=== PATIENT | female | born 1955 | race Caucasian/White ===

== ENCOUNTER 2019-07-17 07:06 | Outpatient (CLI) | payer OTHER, SELFPAY ==
[2019-07-17 07:58] LABS: Alanine Aminotransferase 30 U/L (4-35); Albumin Level 4.1 g/dL (3.5-5.1); Alkaline Phosphatase 145 U/L (38-126); Aspartate Amino Transferase 32 U/L (14-36); Bilirubin,Total 0.7 mg/dL (0.2-1.3); Blood Urea Nitrogen 14 mg/dL (7-17); Carbon Dioxide 26 mmol/L (22-30); Chloride 106 mmol/L (98-107); Cholesterol 179 mg/dL (0-200); Estimated Glomerular Filt Rate > 60; Glucose 89 mg/dL (65-105); HDL Direct 43 mg/dL; Potassium 3.8 mmol/L (3.4-5.0); Sodium 143 mmol/L (137-145); Triglycerides 122 mg/dL (<150)
[2019-07-17 08:09] LABS: LDL Cholesterol Direct 107 mg/dL
[2019-07-17 08:10] LABS: Basophils Absolute Auto 0.1 K/mm3 (0.0-0.1); Basophils Percent Auto 0.8 % (0.2-1.2); Eosinophils Absolute Auto 0.4 K/mm3 (0-0.3); Eosinophils Percent Auto 5.7 % (0-4.4); Hematocrit 44.9 % (37.0-47.0); Hemoglobin 14.4 g/dL (12.0-15.0); Immature Granulocyte Absolute 0.03 K/mm3 (0.00-0.031); Immature Granulocyte Percent A 0.4 % (0-0.5); Lymphocytes Absolute Auto 2.55 K/mm3 (0.9-3.2); Lymphocytes Percent Auto 33.1 % (18.3-44.2); Mean Corpuscular HGB Conc 32.1 g/dl (32-36); Mean Corpuscular Hemoglobin 29.6 pg (26-34); Mean Corpuscular Volume 92.2 fl (80-100); Mean Platelet Volume 10.4 fl (7.4-10.4); Monocytes Absolute Auto 0.4 K/mm3 (0.1-0.6); Monocytes Percent Auto 5.3 % (2.6-8.5); Neutrophils Absolute Auto 4.2 K/mm3 (1.3-6.7); Neutrophils Percent Auto 54.7 % (45.5-73.1); Platelet Count Result 290 k/mm3 (150-375); Red Blood Count 4.87 M/mm3 (4.2-5.4); Red Cell Distribution Width 14.4 % (11.5-14.5); White Blood Count 7.7 K/mm3 (4.5-10.0)
[2019-07-17 08:16] LABS: Add Urine Microscopic? YES; Appearance Urine Cloudy (Clear); Bacteria Urine Trace /hpf; Bilirubin Urine Negative (Negative); Blood Urine Negative (Negative); Color Urine Yellow (Yellow); Glucose Urine UA Negative (Negative); Ketones Urine Trace mg/dL (Negative); Leukocyte Esterase Ur Negative LEU/UL (Negative); Mucus Urine Rare /lpf; Nitrate Urine Negative (Negative); Protein Urine Negative (Negative); RBC Urine 0-2 /hpf (0-2); Specific Grav Ur 1.015 (1.001-1.035); Squamous Epithelial Cell Urine Many /hpf (Few); Urobilinogen Urine Negative mg/dL (<2.0); WBC Urine 0-3 /hpf
[2019-07-17 08:28] LABS: Thyroid Stimulating Hormone 0.148 uIU/mL (0.465-4.680)
[2019-07-17 09:30] LABS: Free T4 Free Thyroxine 1.51 ng/mL (0.78-2.19)
== END 2019-07-17 07:07 | disposition home or self-care (01) ==
PROVIDERS: PCP Physician Assistant; Visit Provider Physician Assistant
DX: E03.9 Hypothyroidism, unspecified (principal); E78.5 Hyperlipidemia, unspecified; Z79.899 Other long term (current) drug therapy
CPT/HCPCS: 36415; 80053; 80061; 81001; 84439; 84443; 85025

== ENCOUNTER 2020-01-29 08:53 | Outpatient (CLI) | payer OTHER, SELFPAY ==
[2020-01-29 09:52] LABS: Thyroid Stimulating Hormone 0.044 uIU/mL (0.465-4.680)
== END 2020-01-29 08:54 | disposition home or self-care (01) ==
LOC: ANHLAB 08:54
PROVIDERS: PCP Physician Assistant; Visit Provider Physician Assistant
DX: E03.9 Hypothyroidism, unspecified (principal)
CPT/HCPCS: 36415; 84439; 84443

== ENCOUNTER 2020-01-29 11:55 | Emergency (ER) | payer OTHER, SELFPAY ==
--- NOTE | ~2020-01-29 | CT_ITS ---
EXAMINATION: CT brain wo con INDICATION: Dizziness COMPARISON: None TECHNIQUE: Standard unenhanced head CT. The dose-length product (DLP) was 605.33 mGy-cm. The mA was a djusted according to patient size. Iterative reconstruction technique was employed. FINDINGS: There is no intracranial hemorrhage, acute infarction, or abnormal mass lesion. The ventric les are normal. There is no abnormal mass effect or midline shift. The roblero-white matter differentiat ion is normal. The basal cisterns are patent. The orbits are normal. There is mild mucosal thickening of the paranasal sinuses. IMPRESSION: 1. No acute intracranial abnormality. Reviewed, dictated and finalized at location A.
[2020-01-29 11:46] VITALS: BP 183/93; PULSE 109; RESP 17; TEMP 36.4; O2SAT 97
--- NOTE | 2020-01-29 11:54 | ECG_ITS ---
Measurements Intervals [place] Rate: 107 P: 52 DC: 130 QRS: 26 QRSD: 82 T: 29 QT: 336 QTc: 449 Interpretive Statements SINUS TACHYCARDIA BASELINE ARTIFACT- V1, V3 ABNORMAL ECG Electronically Signed On 01-31-2020 7:12:43 CDT by Antoine Manley D.O.
[2020-01-29 12:16] LABS: Basophils Absolute Auto 0.1 K/mm3 (0.0-0.1); Basophils Percent Auto 0.7 % (0.2-1.2); Eosinophils Absolute Auto 0.2 K/mm3 (0-0.3); Eosinophils Percent Auto 2.6 % (0-4.4); Hemoglobin 14.8 g/dL (12.0-15.0); Immature Granulocyte Absolute 0.02 K/mm3 (0.00-0.031); Immature Granulocyte Percent A 0.2 % (0-0.5); Lymphocytes Absolute Auto 2.63 K/mm3 (0.9-3.2); Lymphocytes Percent Auto 31.3 % (18.3-44.2); Mean Corpuscular HGB Conc 32.9 g/dl (32-36); Mean Corpuscular Hemoglobin 30.8 pg (26-34); Mean Corpuscular Volume 93.6 fl (80-100); Mean Platelet Volume 10.3 fl (7.4-10.4); Monocytes Absolute Auto 0.4 K/mm3 (0.1-0.6); Monocytes Percent Auto 4.9 % (2.6-8.5); Neutrophils Absolute Auto 5.1 K/mm3 (1.3-6.7); Neutrophils Percent Auto 60.3 % (45.5-73.1); Platelet Count Result 279 k/mm3 (150-375); Red Blood Count 4.81 M/mm3 (4.2-5.4); White Blood Count 8.4 K/mm3 (4.5-10.0)
[2020-01-29 12:19] LABS: Add Urine Microscopic? YES; Appearance Urine Cloudy (Clear); Bacteria Urine Trace /hpf; Bilirubin Urine Negative (Negative); Blood Urine Negative (Negative); Color Urine Yellow (Yellow); Glucose Urine UA Negative (Negative); Ketones Urine Negative (Negative); Leukocyte Esterase Ur Negative LEU/UL (Negative); Mucus Urine Rare /lpf; Nitrate Urine Negative (Negative); Protein Urine Negative (Negative); RBC Urine 0-2 /hpf (0-2); Specific Grav Ur 1.019 (1.001-1.035); Squamous Epithelial Cell Urine Many /hpf (Few); Urobilinogen Urine Negative mg/dL (<2.0)
[2020-01-29 12:29] LABS: Alanine Aminotransferase 23 U/L (4-35); Albumin Level 4.3 g/dL (3.5-5.1); Alkaline Phosphatase 109 U/L (38-126); Anion Gap 8 mmol/L (8-16); Aspartate Amino Transferase 28 U/L (14-36); Bilirubin,Total 0.2 mg/dL (0.2-1.3); Blood Urea Nitrogen 17 mg/dL (7-17); Calcium 8.9 mg/dL (8.4-10.2); Carbon Dioxide 28 mmol/L (22-30); Chloride 106 mmol/L (98-107); Estimated CRCL calculation 55 ml/min; Estimated Glomerular Filt Rate 50; Glucose 136 mg/dL (65-105); Potassium 3.8 mmol/L (3.4-5.0); Sodium 142 mmol/L (137-145)
[2020-01-29] MEDS: SODIUM CHLORIDE 0.9% IV 1,000 ML 150 ML IV CONT (13:15)
[2020-01-29] MEDS: MECLIZINE HCL 25 MG TABLET PO (13:15)
[2020-01-29 14:28] VITALS: BP 142/75; PULSE 94; RESP 19; O2SAT 98
--- NOTE | 2020-01-29 15:11 | ED.DIZZY ---
HPI - Dizziness General Chief Complaint: Dizziness Stated Complaint: dizzyness Time Seen by Provider: 01/29/20 12:14 Source: patient Mode of arrival: EMS Limitations: no limitations History of Present Illness HPI Narrative: 64-year-old with a history of hypertension, anxiety disorder here with complaints of sudden onset of dizziness since this morning. Patient states that the whole room was spinning and she was off balance associated with some nausea. She denies any headache, no chest pain, shortness of breath. Denies any abdominal pain or GI bleeding. She denies any ringing sensation in the ears. MD elicited complaint: dizziness Onset (ago): hour(s) (4) Severity: moderate Description: sense of movement and room spinning Context: change in body position History of similar symptoms: No Exacerbating factors: movement/ambulation, change in body position, keeping eyes open and keeping eyes closed Relieving factors: lying down Associated neuro symptoms: gait ataxia Related Data Allergies Allergy/AdvReac Type Severity Reaction Status Date / Time Sulfa (Sulfonamide Allergy Unknown Verified 10/10/15 16:05 Antibiotics) Review of Systems Review of Systems: All systems reviewed & are unremarkable except as noted in HPI and below Constitutional: Constitutional: Reports no additional constitutional complaints Eyes: Eyes: Reports no additional eye complaints ENT: Reports system reviewed and no additional complaints, except as documented Cardiovascular: Cardiovascular: Reports no additional cardiovascular complaints Respiratory: Respiratory: Reports no additional respiratory complaints Gastrointestinal: Gastrointestinal: Reports no additional gastrointestinal complaints Musculoskeletal: Musculoskeletal: Reports no additional musculoskeletal complaints Integumentary/Breasts: Skin/Breast: Reports system reviewed and no additional complaints, except as docu Psychiatric: Psychiatric: Reports no additional psychiatric complaints Endocrine: Endocrine: Reports no additional endocrine complaints PMFSH Family History Family History Mother Hypertension Other Family history of primary malignant neoplasm of liver Family history of throat cancer Social History Social History Smoking status: Never smoker Alcohol intake: never Gender identity (if verbalized by the patient): Female Exam Narrative: Exam Narrative: GENERAL: Well-appearing, well-nourished, and in no acute distress. HEAD: Normocephalic, atraumatic. EYES: PERRLA and EOMI. ENT: Nares clear, no rhinorrhea or epistaxis. Mucous membranes moist. NECK: Supple. CHEST: Clear to auscultation. No respiratory distress. HEART: Regular rate and rhythm. No murmur heard. Normal peripheral pulses. ABDOMEN: Soft, nontender, nondistended, normal active bowel sounds. EXTREMITIES: Normal range of motion. No edema. SKIN: Warm, dry, no rash. NEURO: No focal deficits. Alert and oriented x3. PSYCH: Normal mood and affect. Const: General: no acute distress Orientation/consciousness: patient oriented x3 HENMT: Head: normal to inspection Eyes: Conjunctivae: conjunctivae normal Pupils: Equal, round and reactive pupils present Neck: Neck: normal visual inspection Chest: Chest palpation & inspection: normal inspection of the chest Resp: Effort & Inspection: normal respiratory effort Cardio: Rate: regular rate GI: Auscultation: normal bowel sounds Skin: General skin exam: normal color Neuro: General: patient oriented x3 and moves all extremities Extrem: General: normal to inspection Course Course Emergency Course: Patient was given IV Ativan, meclizine 25 mg p.o. and IV fluids. I ordered a CT of the head to rule out stroke, CBC and chemistry and EKG which were all within normal limits. Patient did feel much better was able to sit and ambulate to the
[2020-01-29 15:40] VITALS: BP 124/73; PULSE 78; RESP 14; O2SAT 98
== END 2020-01-29 16:26 | disposition home or self-care (01) ==
PROVIDERS: Emergency Medicine; Emergency Provider Family Medicine; PCP Physician Assistant
DX: H81.10 Benign paroxysmal vertigo, unspecified ear (principal); I10 Essential (primary) hypertension; R00.0 Tachycardia, unspecified
CPT/HCPCS: 36415; 70450; 80053; 81001; 85025; 93005; 96361; 96374; 99284; A9270; J2060; J7030

== ENCOUNTER 2020-07-14 07:03 | Outpatient (CLI) | payer OTHER, SELFPAY ==
[2020-07-14 08:17] LABS: Basophils Absolute Auto 0.1 K/mm3 (0.0-0.1); Basophils Percent Auto 0.6 % (0.2-1.2); Eosinophils Absolute Auto 0.4 K/mm3 (0-0.3); Eosinophils Percent Auto 4.3 % (0-4.4); Hematocrit 47.3 % (37.0-47.0); Hemoglobin 15.2 g/dL (12.0-15.0); Immature Granulocyte Absolute 0.04 K/mm3 (0.00-0.031); Immature Granulocyte Percent A 0.5 % (0-0.5); Lymphocytes Percent Auto 34.5 % (18.3-44.2); Mean Corpuscular HGB Conc 32.1 g/dl (32-36); Mean Corpuscular Hemoglobin 30.3 pg (26-34); Mean Corpuscular Volume 94.2 fl (80-100); Mean Platelet Volume 10.2 fl (7.4-10.4); Monocytes Absolute Auto 0.4 K/mm3 (0.1-0.6); Monocytes Percent Auto 5.2 % (2.6-8.5); Neutrophils Absolute Auto 4.6 K/mm3 (1.3-6.7); Neutrophils Percent Auto 54.9 % (45.5-73.1); Platelet Count Result 294 k/mm3 (150-375); Red Blood Count 5.02 M/mm3 (4.2-5.4); Red Cell Distribution Width 13.9 % (11.5-14.5); White Blood Count 8.4 K/mm3 (4.5-10.0)
[2020-07-14 08:20] LABS: Add Urine Microscopic? NO; Appearance Urine Clear (Clear); Bilirubin Urine Negative (Negative); Blood Urine Negative (Negative); Color Urine Yellow (Yellow); Glucose Urine UA Negative (Negative); Ketones Urine Negative (Negative); Leukocyte Esterase Ur Negative LEU/UL (Negative); Nitrate Urine Negative (Negative); Protein Urine Negative (Negative); Specific Grav Ur 1.026 (1.001-1.035); Urobilinogen Urine Negative mg/dL (<2.0)
[2020-07-14 08:33] LABS: Alanine Aminotransferase 22 U/L (4-35); Albumin Level 4.3 g/dL (3.5-5.1); Alkaline Phosphatase 108 U/L (38-126); Anion Gap 4 mmol/L (8-16); Aspartate Amino Transferase 26 U/L (14-36); Bilirubin,Total 0.4 mg/dL (0.2-1.3); Blood Urea Nitrogen 19 mg/dL (7-17); Calcium 9.6 mg/dL (8.4-10.2); Carbon Dioxide 31 mmol/L (22-30); Chloride 107 mmol/L (98-107); Cholesterol 202 mg/dL (0-200); Estimated Glomerular Filt Rate 41; Glucose 97 mg/dL (65-105); HDL Direct 53 mg/dL; Potassium 3.9 mmol/L (3.4-5.0); Sodium 142 mmol/L (137-145); Triglycerides 101 mg/dL (<150)
[2020-07-14 08:37] LABS: Hemoglobin A1C 5.5 % (<5.7)
[2020-07-14 08:44] LABS: LDL Cholesterol Direct 117 mg/dL
[2020-07-14 09:02] LABS: Thyroid Stimulating Hormone 0.025 uIU/mL (0.465-4.680)
[2020-07-14 09:18] LABS: Free T4 Free Thyroxine 1.43 ng/mL (0.78-2.19)
== END 2020-07-14 07:04 | disposition home or self-care (01) ==
PROVIDERS: PCP Physician Assistant; Visit Provider Physician Assistant
DX: E03.9 Hypothyroidism, unspecified (principal); E78.5 Hyperlipidemia, unspecified; Z79.899 Other long term (current) drug therapy; Z13.1 Encounter for screening for diabetes mellitus
CPT/HCPCS: 36415; 80053; 80061; 81003; 83036; 84439; 84443; 85025

== ENCOUNTER 2020-10-30 11:55 | Outpatient (CLI) | payer OTHER, SELFPAY ==
--- NOTE | ~2020-10-30 | XR_ITS ---
XR foot LT min 3V 10/30/2020 12:22 INDICATION: Left foot pain PROCEDURE: 4 views left foot COMPARISON: No prior studies for comparison. FINDINGS: Fracture, dislocation or subluxation is not identified. Lisfranc joint is intact. The soft tissues appear within normal limits. No foreign bodies are identified. IMPRESSION: 1: NO ACUTE BONE OR JOINT ABNORMALITY IDENTIFIED. Reviewed, dictated and finalized at location A.
== END 2020-10-30 11:56 | disposition home or self-care (01) ==
LOC: ANHIMG 12:03
PROVIDERS: PCP Physician Assistant; Visit Provider Physician Assistant
DX: S99.922A Unspecified injury of left foot, initial encounter (principal); X58.XXXA Exposure to other specified factors, initial encounter
CPT/HCPCS: 73630

== ENCOUNTER 2021-08-29 08:50 | Outpatient (CLI) | payer MEDICARE, SELFPAY ==
[2021-08-29 09:45] LABS: Basophils Absolute Auto 0.1 K/mm3 (0.0-0.1); Basophils Percent Auto 0.9 % (0.2-1.2); Eosinophils Absolute Auto 0.2 K/mm3 (0-0.3); Eosinophils Percent Auto 2.6 % (0-4.4); Hematocrit 48.1 % (37.0-47.0); Hemoglobin 15.4 g/dL (12.0-15.0); Immature Granulocyte Absolute 0.02 K/mm3 (0.00-0.031); Immature Granulocyte Percent A 0.2 % (0-0.5); Lymphocytes Absolute Auto 3.05 K/mm3 (0.9-3.2); Lymphocytes Percent Auto 37.3 % (18.3-44.2); Mean Corpuscular Hemoglobin 30.3 pg (26-34); Mean Corpuscular Volume 94.7 fl (80-100); Mean Platelet Volume 9.8 fl (7.4-10.4); Monocytes Absolute Auto 0.6 K/mm3 (0.1-0.6); Monocytes Percent Auto 7.1 % (2.6-8.5); Neutrophils Absolute Auto 4.3 K/mm3 (1.3-6.7); Neutrophils Percent Auto 51.9 % (45.5-73.1); Platelet Count Result 310 k/mm3 (150-375); Red Blood Count 5.08 M/mm3 (4.2-5.4); Red Cell Distribution Width 14.3 % (11.5-14.5); White Blood Count 8.2 K/mm3 (4.5-10.0)
[2021-08-29 10:01] LABS: Alanine Aminotransferase 25 U/L (4-35); Albumin Level 4.3 g/dL (3.5-5.1); Alkaline Phosphatase 134 U/L (38-126); Anion Gap 6 mmol/L (8-16); Aspartate Amino Transferase 29 U/L (14-36); Bilirubin,Total 0.2 mg/dL (0.2-1.3); Blood Urea Nitrogen 19 mg/dL (7-17); Calcium 9.3 mg/dL (8.4-10.2); Carbon Dioxide 28 mmol/L (22-30); Chloride 107 mmol/L (98-107); Estimated Glomerular Filt Rate 50; Glucose 115 mg/dL (65-110); Potassium 4.2 mmol/L (3.4-5.0); Sodium 141 mmol/L (137-145)
[2021-08-29 10:15] LABS: Free T4 Free Thyroxine 1.37 ng/mL (0.78-2.19)
[2021-08-29 10:29] LABS: Thyroid Stimulating Hormone 0.031 uIU/mL (0.465-4.680)
== END 2021-08-29 08:51 | disposition home or self-care (01) ==
LOC: ANHLAB 08:57
PROVIDERS: PCP Physician Assistant; Visit Provider Physician Assistant
DX: E03.9 Hypothyroidism, unspecified (principal); Z79.899 Other long term (current) drug therapy
CPT/HCPCS: 36415; 80048; 80076; 84439; 84443; 85025

== ENCOUNTER 2022-02-21 17:28 | Emergency (ER) | payer MEDICARE, SELFPAY ==
[2022-02-21] VITALS (10 sets, daily range): BP systolic 131–155; BP diastolic 72–93; PULSE 95–124; RESP 18–26; TEMP 36.6; O2SAT 91–98
--- NOTE | ~2022-02-21 | XR_ITS ---
EXAMINATION: XR chest 2V DATE: 02/21/2022 20:02 INDICATION: Leukocytosis. TECHNIQUE: Frontal and lateral views of the chest were obtained. COMPARISON: Chest 2 views 12/14/2009 FINDINGS: There is a large hiatal hernia. There is mild atelectasis in right lower lung zone. No pleu ral effusion or pneumothorax. The heart size is normal. Surgical clips in the right upper quadrant ar e likely from cholecystectomy. IMPRESSION: 1. Large hiatal hernia. 2. Mild atelectasis in right lower lung zone. Reviewed, dictated and finalized at location A.
--- NOTE | ~2022-02-21 | CT_ITS ---
EXAMINATION: CT abdomen pelvis w con DATE: 02/21/2022 21:29 INDICATION: Lower pelvic pain. TECHNIQUE: Computed tomography (CT) of the abdomen and pelvis was performed with 100 mL Omnipaque 350 intravenous contrast. Automated exposure control and iterative reconstruction technique were employe d. The dose-length product was 907.98 mGy-cm. COMPARISON: None. FINDINGS: The visualized portions of the lung bases demonstrate mild atelectasis. No pleural effusion . The heart size is normal. No pericardial effusion. There is a large sliding hiatal hernia. The tail of the pancreas is in the hiatal hernia. There is a 7 mm cyst in the liver. There are changes of cho lecystectomy. The spleen, adrenal glands, and right kidney are normal. There is a 10 mm cyst in left kidney. There are scattered diverticula in the colon. There is fat stranding around a sigmoid diverti culum, consistent with diverticulitis. There is trace pelvic ascites. There are no dilated loops of b owel. The appendix is normal. There are no pathologically enlarged lymph nodes. There is moderate tho racic spondylosis and mild lumbar spondylosis. IMPRESSION: 1. Acute sigmoid diverticulitis. No perforation or abscess. 2. Large sliding hiatal hernia. Reviewed, dictated and finalized at location A.
--- NOTE | 2022-02-21 18:33 | ECG_ITS ---
Measurements Intervals [place] Rate: 125 P: 42 TN: 155 QRS: 33 QRSD: 79 T: 33 QT: 336 QTc: 486 Interpretive Statements SINUS TACHYCARDIA BORDERLINE ST-T WAVE ABNORMALITY- ANT/INF LEADS ABNORMAL ECG COMPARED TO ECG 01/29/2020 11:54:29 HEART RATE HAS INCREASED Electronically Signed On 02-21-2022 21:41:32 CDT by Antoine Manley D.O.
--- NOTE | 2022-02-21 18:36 | ED.GENADULT ---
HPI - General Adult General Chief complaint: Weakness Stated complaint: WEAK, DEHYDRATED, HOME TEST NEGATIVE Time Seen by Provider: 02/21/22 18:23 History of Present Illness HPI narrative: 67-year-old female with history of anxiety, hypothyroidism here for evaluation of weakness for the past 8 hours. Patient states that she feels weak all over without obvious trigger. Patient took a home COVID test that was negative. She states that she is not constipated for the past 5 days, but this is her baseline. She does note some intermittent lower abdominal discomfort and had an episode of nausea and vomiting about 5 days ago, which she presumed was gastroenteritis after eating [employer]. This is since resolved. No fevers, chills, chest pain, shortness of breath, dysuria, urgency or frequency. Patient tells me her heart rate is chronically elevated at the hospital due to anxiety. Related Data Home Medications Medication Instructions Recorded Confirmed alprazolam 0.5 mg tablet 0.5 mg PO QID 08/23/21 levothyroxine 88 mcg tablet 88 mcg PO DAILY 08/23/21 (Euthyrox) lisinopril 30 mg tablet 30 mg PO DAILY 08/23/21 Allergies Allergy/AdvReac Type Severity Reaction Status Date / Time sulfamethoxazole Allergy Swelling Verified 08/23/21 09:23 [From Bactrim] of Lip/Tongue/Throat trimethoprim [From Bactrim] Allergy Swelling Verified 08/23/21 09:23 of Lip/Tongue/Throat Review of Systems Review of Systems: Gen: Denies fevers or chills Eyes: Denies eye pain or visual change ENT: Denies congestion Respiratory: Denies shortness of breath or cough CV: Denies chest pain or palpitations GI: Reports constipation and lower abdominal pain. Denies diarrhea : denies burning, urgency, frequency or hematuria Musculoskeletal: Denies back pain or muscle pain Neuro: Reports weakness. Denies numbness, tingling, focal weakness Skin: Denies rash Except as documented, all other systems reviewed and negative [facility] Surgical History Surgical History History of cholecystectomy History of hysterectomy Family History Family History Mother Hypertension Other Family history of primary malignant neoplasm of liver Family history of throat cancer Social History Social History (Updated 08/23/21 @ 09:25 by Elizabet Reddy RN) Smoking status: Never smoker Alcohol intake: never Substance use: never Substance use type: does not use Gender identity (if verbalized by the patient): Female Course Vital Signs Vital signs: Vital Signs Temperature 97.8 F 02/21/22 17:41 Pulse Rate 100 02/21/22 17:41 Respiratory Rate 20 02/21/22 17:41 Blood Pressure 146/89 H 02/21/22 17:41 Pulse Oximetry 95 02/21/22 17:41 Oxygen Delivery Room Air 02/21/22 17:41 Temperature 97.8 F 02/21/22 17:41 Pulse Rate 95 02/21/22 23:38 Respiratory Rate 18 02/21/22 23:38 Blood Pressure 131/93 H 02/21/22 23:38 Pulse Oximetry 97 02/21/22 23:38 Oxygen Delivery Room Air 02/21/22 17:41 Medical Decision Making MDM Narrative Medical decision making narrative: 67 year old female here for evaluation of generalized weakness and lower abdominal cramping for the past day. Here she is tachycardic but non-toxic appearing; improved after fluids and home xanax rx. Workup significant for a leukocytosis to 16.3, normal lactic, Cr/BUN at baseline, no electrolyte disturbance, TSH 0.160 followed by a free t4 of 12 suggesting slightly hyperthyroid (on levothyroxine), does not explain patient's weakness. CXR and urine clear. CT abd pelvis with evidence of diverticulitis; which likely explains patient's symptoms. Shared decision making was used; patient elected for outpatient management with augmentin and clear liquid diet and will monitor symptoms for improvement. She was given return precautions and she voic
[2022-02-21 19:06] LABS: Basophils Absolute Auto 0.1 K/mm3 (0.0-0.1); Basophils Percent Auto 0.4 % (0.2-1.2); Eosinophils Percent Auto 0.2 % (0-4.4); Hematocrit 44.1 % (37.0-47.0); Hemoglobin 14.8 g/dL (12.0-15.0); Immature Granulocyte Absolute 0.06 K/mm3 (0.00-0.031); Immature Granulocyte Percent A 0.4 % (0-0.5); Lymphocytes Absolute Auto 2.05 K/mm3 (0.9-3.2); Lymphocytes Percent Auto 12.6 % (18.3-44.2); Mean Corpuscular HGB Conc 33.6 g/dl (32-36); Mean Corpuscular Hemoglobin 30.3 pg (26-34); Mean Corpuscular Volume 90.4 fl (80-100); Mean Platelet Volume 9.7 fl (7.4-10.4); Monocytes Absolute Auto 0.9 K/mm3 (0.1-0.6); Monocytes Percent Auto 5.3 % (2.6-8.5); Neutrophils Absolute Auto 13.2 K/mm3 (1.3-6.7); Neutrophils Percent Auto 81.1 % (45.5-73.1); Platelet Count Result 300 k/mm3 (150-375); Red Blood Count 4.88 M/mm3 (4.2-5.4); Red Cell Distribution Width 13.7 % (11.5-14.5); White Blood Count 16.3 K/mm3 (4.5-10.0)
[2022-02-21 19:16] LABS: Alanine Aminotransferase 25 U/L (6-35); Albumin Level 4.5 g/dL (3.5-5.1); Alkaline Phosphatase 139 U/L (38-126); Anion Gap 15 mmol/L (8-16); Aspartate Amino Transferase 26 U/L (14-36); Bilirubin,Total 0.7 mg/dL (0.2-1.3); Blood Urea Nitrogen 15 mg/dL (7-17); Calcium 8.5 mg/dL (8.4-10.2); Carbon Dioxide 21 mmol/L (22-30); Chloride 104 mmol/L (98-107); Estimated CRCL calculation 55 ml/min; Estimated Glomerular Filt Rate 50; Glucose 148 mg/dL (65-110); Potassium 3.5 mmol/L (3.4-5.0); Sodium 140 mmol/L (137-145)
[2022-02-21 19:27] LABS: Troponin I < 0.012 ng/mL (0.000-0.034)
[2022-02-21 19:45] LABS: Appearance Urine Clear (Clear); Bilirubin Urine Negative (Negative); Blood Urine Negative (Negative); Color Urine Yellow (Yellow); Glucose Urine UA Negative (Negative); Ketones Urine Negative (Negative); Leukocyte Esterase Ur Negative LEU/UL (Negative); Nitrate Urine Negative (Negative); Protein Urine Negative (Negative); Specific Grav Ur <= 1.005 (1.001-1.035); Urobilinogen Urine 0.2 mg/dL (<2.0); pH Urine 5.5 (5.0-9.0)
[2022-02-21 19:48] LABS: Add Urine Microscopic? NO
[2022-02-21] MEDS: SODIUM CHLORIDE 0.9% IV 1,000 ML 999 ML IV CONT (21:00)
[2022-02-21 21:19] LABS: Lactic Acid Reflex 1.1 mmol/L (0.7-2.0)
[2022-02-21] MEDS: AMOXICILLIN/CLAVULANATE K 875-125 MG TAB 1 TABLET PO (22:40)
[2022-02-21] MEDS: ALPRAZolam (*CRX) 0.5 MG TABLET PO (22:40)
== END 2022-02-21 23:40 | disposition home or self-care (01) ==
PROVIDERS: Physician Assistant; Emergency Provider Emergency Medicine; PCP Physician Assistant
DX: K57.32 Diverticulitis of large intestine without perforation or abscess without bleeding (principal); E03.9 Hypothyroidism, unspecified; F41.9 Anxiety disorder, unspecified; Z90.710 Acquired absence of both cervix and uterus; K44.9 Diaphragmatic hernia without obstruction or gangrene; R00.0 Tachycardia, unspecified; R94.31 Abnormal electrocardiogram [ECG] [EKG]
CPT/HCPCS: 36415; 71046; 74177; 80053; 81003; 83605; 84436; 84443; 84484; 85025; 93005; 96360; 96361; 99284; A9270; J7030; Q9967

== ENCOUNTER 2022-07-15 09:22 | Emergency (ER) | payer MEDICARE, SELFPAY ==
[2022-07-15] VITALS (8 sets, daily range): BP systolic 146–169; BP diastolic 74–106; PULSE 70–127; RESP 14–27; TEMP 36.5–36.7; O2SAT 95–99
--- NOTE | ~2022-07-15 | XR_ITS ---
EXAMINATION: XR chest 1V portable DATE: 07/15/2022 15:15 INDICATION: Cold symptoms. TECHNIQUE: A single frontal view of the chest was obtained. COMPARISON: Chest 2 views 02/21/2022, CT abdomen and pelvis 02/21/2022 FINDINGS: There is a large hiatal hernia. No pneumonia, pleural effusion, or pneumothorax. The heart size is normal. Surgical clips in the right upper quadrant are likely from cholecystectomy. IMPRESSION: 1. Large hiatal hernia. Reviewed, dictated and finalized at location A. 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 Large hiatal hernia.
--- NOTE | ~2022-07-15 | CT_ITS ---
EXAMINATION: CT abdomen pelvis w con DATE: 07/15/2022 17:29 INDICATION: Colitis TECHNIQUE: Computed tomography (CT) of the abdomen and pelvis was performed with 100 mL Omnipaque-350 intravenous contrast. Automated exposure control and iterative reconstruction technique were employe d. The dose-length product was 768.53 mGy-cm. COMPARISON: 02/21/2022 FINDINGS: Large hiatal hernia containing nearly the entire stomach and large portion of the pancreatic body and tail which extends primarily into the posterior right hemithorax. Associated compressive atelectasis in the right lower lobe. Heart size is normal. No pericardial or pleural effusion. 7 mm hepatic cyst . Cholecystectomy clips the gallbladder fossa. 5 mm low-attenuation lesion at the anteroinferior sple en most likely small hemangioma. Bilateral adrenal glands and right kidney are normal. 1 cm left lourdes l cyst. Several diverticula along the sigmoid colon. There is wall thickening along a short segment o f the mid sigmoid colon and mild surrounding from trace stranding which given the short length of the involved segment would favor diverticulitis over colitis. Small bowel and appendix are normal. Bladd er is normal. The uterus is not identified and has likely been surgically resected. 5 mm coarse calci fication in the left ovary. Right ovary is normal. Small amount of nonloculated likely reactive or ph ysiologic free fluid in the pelvis. No abscess or free intraperitoneal gas. Mild lumbar and moderate lower thoracic spondylosis with chronic mild anterior wedging at T10 and T11. IMPRESSION: 1. Recurrent likely acute sigmoid diverticulitis. 2. Large sliding-type hiatal hernia. Reviewed, dictated and finalized at location A. 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
[2022-07-15 10:38] LABS: Influenza A QL RT-PCR Negative (Negative); Influenza B QL RT-PCR Negative (Negative); RSV RNA, RT-PCR Negative (Negative); SARS-CoV-2 RNA PCR Negative
--- NOTE | 2022-07-15 14:23 | ED.GENADULT ---
HPI - General Adult General Chief complaint: Unspecified Stated complaint: Chills, aching, headache for 5 days Time Seen by Provider: 07/15/22 14:21 Source: patient Mode of arrival: ambulatory Limitations: no limitations History of Present Illness HPI narrative: 67 years old white female came to the emergency room by private car with cold feeling, chills, body aches, coughing started 5 days ago, yesterday was doing great today started having the symptoms back up again. Patient reports that her coughing resolved 2 days ago currently she is not coughing or having any shortness of breath. She denies any fever. She reports slight abdominal pain earlier today which resolved in few minutes, currently no abdominal pain or fever or nausea or vomiting Related Data Home Medications Medication Instructions Recorded Confirmed alprazolam 0.5 mg tablet 0.5 mg PO QID 08/23/21 levothyroxine 88 mcg tablet 88 mcg PO DAILY 08/23/21 (Euthyrox) lisinopril 30 mg tablet 30 mg PO DAILY 08/23/21 Allergies Allergy/AdvReac Type Severity Reaction Status Date / Time sulfamethoxazole Allergy Swelling Verified 08/23/21 09:23 [From Bactrim] of Lip/Tongue/Throat trimethoprim [From Bactrim] Allergy Swelling Verified 08/23/21 09:23 of Lip/Tongue/Throat Review of Systems Review of Systems: All systems reviewed & are unremarkable except as noted in HPI and below PMFSH Surgical History Surgical History History of cholecystectomy History of hysterectomy Family History Family History Mother Hypertension Other Family history of primary malignant neoplasm of liver Family history of throat cancer Social History Social History Smoking status: Never smoker Alcohol intake: never Substance use: never Substance use type: does not use Gender identity (if verbalized by the patient): Female Exam Narrative: General appearance: Well-developed, well-nourished Skin: Normal color Head: Normocephalic, nontraumatic Eyes: Clear conjunctiva ENT: Oropharynx normal, ears normal, nose normal Neck: Supple, nontender Chest and respiratory: Airway patent, no respiratory distress, no accessory muscle use Heart: Regular rate/rhythm Abdomen: Soft, nontender, no organomegaly, quiet bowel sounds Vascular: Normal peripheral pulses, normal capillary refill. 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 Noticed some slight lower abdominal pain today which lasted for few minutes, currently no abdominal pain, physical examination showed no significant abdominal abnormalities. Work-up showed elevated white count with left shift, patient told me that she had similar symptoms without abdominal pain last year and had diverticulitis at that time. CT abdomen and pelvis with IV contrast ordered. Which showed recurren
[2022-07-15 14:55] LABS: Appearance Urine Clear (Clear); Bilirubin Urine Negative (Negative); Blood Urine Negative (Negative); Color Urine Yellow (Yellow); Glucose Urine UA Negative (Negative); Ketones Urine Negative (Negative); Leukocyte Esterase Ur Negative LEU/UL (Negative); Nitrate Urine Negative (Negative); Protein Urine Negative (Negative); Urobilinogen Urine 0.2 mg/dL (<2.0); pH Urine 6.5 (5.0-9.0)
[2022-07-15 14:56] LABS: Add Urine Microscopic? NO
[2022-07-15 15:08] LABS: Basophils Absolute Auto 0.1 K/mm3 (0.0-0.1); Basophils Percent Auto 0.4 % (0.2-1.2); Eosinophils Percent Auto 0.2 % (0-4.4); Hematocrit 49.1 % (37.0-47.0); Immature Granulocyte Absolute 0.07 K/mm3 (0.00-0.031); Immature Granulocyte Percent A 0.5 % (0-0.5); Lymphocytes Absolute Auto 1.71 K/mm3 (0.9-3.2); Mean Corpuscular HGB Conc 32.6 g/dl (32-36); Mean Corpuscular Hemoglobin 30.1 pg (26-34); Mean Corpuscular Volume 92.5 fl (80-100); Mean Platelet Volume 9.8 fl (7.4-10.4); Monocytes Absolute Auto 0.5 K/mm3 (0.1-0.6); Monocytes Percent Auto 3.9 % (2.6-8.5); Neutrophils Absolute Auto 10.8 K/mm3 (1.3-6.7); Platelet Count Result 307 k/mm3 (150-375); Red Blood Count 5.31 M/mm3 (4.2-5.4); Red Cell Distribution Width 14.2 % (11.5-14.5); White Blood Count 13.2 K/mm3 (4.5-10.0)
[2022-07-15] MEDS: SODIUM CHLORIDE 0.9% IV 1,000 ML 999 ML IV CONT (15:11)
[2022-07-15 15:22] LABS: Alanine Aminotransferase 38 U/L (6-35); Albumin Level 4.7 g/dL (3.5-5.1); Alkaline Phosphatase 186 U/L (38-126); Anion Gap 7 mmol/L (8-16); Aspartate Amino Transferase 35 U/L (14-36); Bilirubin,Total 0.7 mg/dL (0.2-1.3); Blood Urea Nitrogen 12 mg/dL (7-17); Calcium 9.7 mg/dL (8.4-10.2); Carbon Dioxide 31 mmol/L (22-30); Chloride 104 mmol/L (98-107); Estimated CRCL calculation 45 ml/min; Estimated Glomerular Filt Rate 50; Glucose 111 mg/dL (65-110); Potassium 4.3 mmol/L (3.4-5.0); Sodium 142 mmol/L (137-145)
--- NOTE | 2022-07-15 18:56 | PC.NURSE ---
Patient states she is very anxious because she did not take her home medication for anxiety. SONJA Owens notified.
[2022-07-15] MEDS: LORazepam (*CRX) 1 MG TABLET PO (18:59)
[2022-07-15] MEDS: metroNIDAZOLE 250 MG TABLET 500 MG PO (20:22)
[2022-07-15] MEDS: levoFLOXacin 750 MG TABLET PO (20:23)
== END 2022-07-15 20:20 | disposition home or self-care (01) ==
PROVIDERS: General Practice; Emergency Provider Emergency Medicine; PCP Physician Assistant
DX: K57.32 Diverticulitis of large intestine without perforation or abscess without bleeding (principal); Z90.710 Acquired absence of both cervix and uterus; K44.9 Diaphragmatic hernia without obstruction or gangrene; Z20.822 Contact with and (suspected) exposure to COVID-19
CPT/HCPCS: 36415; 71045; 74177; 80053; 81003; 85025; 87637; 96360; 99284; A9270; J7030; Q9967

== ENCOUNTER 2022-07-31 06:41 | Outpatient (CLI) | payer MEDICARE, SELFPAY ==
[2022-07-31 07:29] LABS: Basophils Absolute Auto 0.1 K/mm3 (0.0-0.1); Basophils Percent Auto 0.8 % (0.2-1.2); Eosinophils Absolute Auto 0.2 K/mm3 (0-0.3); Eosinophils Percent Auto 2.7 % (0-4.4); Hematocrit 47.6 % (37.0-47.0); Hemoglobin 15.4 g/dL (12.0-15.0); Immature Granulocyte Absolute 0.03 K/mm3 (0.00-0.031); Immature Granulocyte Percent A 0.4 % (0-0.5); Lymphocytes Absolute Auto 2.71 K/mm3 (0.9-3.2); Lymphocytes Percent Auto 32.3 % (18.3-44.2); Mean Corpuscular HGB Conc 32.4 g/dl (32-36); Mean Corpuscular Hemoglobin 30.2 pg (26-34); Mean Corpuscular Volume 93.3 fl (80-100); Mean Platelet Volume 9.7 fl (7.4-10.4); Monocytes Absolute Auto 0.5 K/mm3 (0.1-0.6); Monocytes Percent Auto 5.4 % (2.6-8.5); Neutrophils Absolute Auto 4.9 K/mm3 (1.3-6.7); Neutrophils Percent Auto 58.4 % (45.5-73.1); Platelet Count Result 303 k/mm3 (150-375); White Blood Count 8.4 K/mm3 (4.5-10.0)
[2022-07-31 07:41] LABS: Alanine Aminotransferase 25 U/L (6-35); Albumin Level 4.7 g/dL (3.5-5.1); Alkaline Phosphatase 113 U/L (38-126); Anion Gap 6 mmol/L (8-16); Aspartate Amino Transferase 27 U/L (14-36); Bilirubin,Total 0.5 mg/dL (0.2-1.3); Blood Urea Nitrogen 15 mg/dL (7-17); Calcium 9.5 mg/dL (8.4-10.2); Carbon Dioxide 30 mmol/L (22-30); Chloride 103 mmol/L (98-107); Cholesterol 249 mg/dL (0-200); Estimated Glomerular Filt Rate 50; Glucose 114 mg/dL (65-110); HDL Direct 56 mg/dL; Potassium 4.2 mmol/L (3.4-5.0); Sodium 139 mmol/L (137-145); Triglycerides 152 mg/dL (<150)
[2022-07-31 07:52] LABS: LDL Cholesterol Direct 126 mg/dL
[2022-07-31 08:10] LABS: Thyroid Stimulating Hormone 0.124 uIU/mL (0.465-4.680)
[2022-07-31 08:58] LABS: Free T4 Free Thyroxine 1.69 ng/mL (0.78-2.19)
== END 2022-07-31 06:42 | disposition home or self-care (01) ==
PROVIDERS: PCP Physician Assistant; Visit Provider Physician Assistant
DX: E78.5 Hyperlipidemia, unspecified (principal); E03.9 Hypothyroidism, unspecified; Z79.899 Other long term (current) drug therapy
CPT/HCPCS: 36415; 80048; 80061; 80076; 84439; 84443; 85025

== ENCOUNTER 2022-10-19 19:24 | Emergency (ER) | payer MEDICARE, SELFPAY ==
--- NOTE | 2022-10-19 19:25 | ED.URI ---
HPI - URI/Sore Throat General Chief Complaint: Upper Respiratory Infection Stated Complaint: SORE THROAT Time Seen by Provider: 10/19/22 19:25 Source: patient Mode of arrival: ambulatory Limitations: no limitations History of Present Illness HPI Narrative: Patricia is a 67-year-old female patient presenting to the clinic today with complaints of sore throat that started this morning. Reports she is also having a dry cough that has almost caused her to vomit. Did have home COVID test and it was negative. Denies any fever but has had some chills. MD elicited complaint: sore throat and nasal congestion Related Data Home Medications Medication Instructions Recorded Confirmed alprazolam 0.5 mg tablet 0.5 mg PO QID 08/23/21 10/19/22 levothyroxine 88 mcg tablet 88 mcg PO DAILY 08/23/21 10/19/22 (Euthyrox) lisinopril 30 mg tablet 30 mg PO DAILY 08/23/21 10/19/22 Allergies Allergy/AdvReac Type Severity Reaction Status Date / Time sulfamethoxazole Allergy Swelling Verified 10/19/22 19:35 [From Bactrim] of Lip/Tongue/Throat trimethoprim [From Bactrim] Allergy Swelling Verified 10/19/22 19:35 of Lip/Tongue/Throat Review of Systems Review of Systems: Pertinent positives per HPI. Patient denies any fever, chills, rash, headache, visual changes, dizziness, cough, shortness of breath, chest pain, palpitations, nausea, vomiting, diarrhea, constipation, abdominal pain, or any urinary issues. [facility] Surgical History Surgical History History of cholecystectomy History of hysterectomy Family History Family History Mother Hypertension Other Family history of primary malignant neoplasm of liver Family history of throat cancer Social History Social History Smoking status: Never smoker Alcohol intake: never Substance use: never Substance use type: does not use Gender identity (if verbalized by the patient): Female Comments At the time of my signature, I reviewed and agree with the nursing past medical, surgical, social, and family history. There is no relevant family history pertinent to the patient complaint. Exam Narrative: General: Well-developed, well nourished, in no apparent distress Head: Normocephalic, atraumatic Eyes: Pupils equally round and reactive to light bilaterally, EOM intact, sclera and conjunctive clear, no discharge, lids normal Ears: TMs intact and clear, ear canals clear, no drainage, grossly hearing normal. Nose: Nares patent, no discharge, no inflammation, no sinus tenderness. Mouth: Oral pharynx without lesions or masses, good dentition, MMM. Neck: Supple, trachea midline, no enlargement of anterior or posterior cervical nodes, no thyroid masses or goiter palpable. Cardio: Regular rate and rhythm, s1 and s2 normal, no murmur appreciated. Resp: Clear to auscultation bilaterally, no rhonchi, rales, wheezing or rubs Course Course Emergency Course: Portions of this record may have been created with voice recognition software. Level of Care: Express Care Visit Vital Signs Vital signs: Vital signs reviewed MDM - URI/Sore Throat MDM Narrative Medical decision making narrative: At the time of visit patient is resting comfortably on the exam table. Strep screen was obtained and was negative in the clinic today. I suspect patient has viral pharyngitis. Supportive measures were discussed with the patient she voiced understanding of discharge instructions and agrees to treatment plan. Differential Diagnosis Differential diagnosis: Likely upper respiratory infection, sinusitis, viral infection, bronchitis, influenza, pharyngitis and other (COVID) Discharge Plan Discharge Clinical Impression: Pharyngitis, Viral infection Patient Disposition: Home, Self-Care Con
[2022-10-19 19:30] VITALS: BP 169/90; PULSE 95; RESP 16; TEMP 36.9; O2SAT 97
== END 2022-10-19 19:56 | disposition home or self-care (01) ==
PROVIDERS: Emergency Provider Nurse Practitioner Family; PCP Physician Assistant
DX: J02.9 Acute pharyngitis, unspecified (principal); B34.9 Viral infection, unspecified
CPT/HCPCS: 87081; 87804; 87880; 99213; G0463

== ENCOUNTER 2023-01-28 11:20 | Outpatient (CLI) | payer MEDICARE, SELFPAY ==
--- NOTE | ~2023-01-28 | XR_ITS ---
EXAMINATION: XR knee LT min 4V DATE: 01/28/2023 11:54 INDICATION: Disorder of bone. Anterior proximal tibial nodule. TECHNIQUE: 4 views of left knee including standing views were obtained. COMPARISON: None. FINDINGS: Bone alignment is normal. No fracture. Joint spaces are normal. No knee joint effusion. The re is mild superficial infrapatellar soft tissue swelling. IMPRESSION: 1. Mild superficial infrapatellar soft tissue swelling. Reviewed, dictated and finalized at location A.
== END 2023-01-28 11:21 | disposition home or self-care (01) ==
LOC: ANHIMG 11:24
PROVIDERS: PCP Physician Assistant; Visit Provider Physician Assistant
DX: M89.9 Disorder of bone, unspecified (principal); M79.89 Other specified soft tissue disorders
CPT/HCPCS: 73564

== ENCOUNTER 2023-02-25 11:25 | Emergency (ER) | payer MEDICARE, SELFPAY ==
--- NOTE | ~2023-02-25 | CT_ITS ---
EXAMINATION: CT abdomen pelvis w con DATE: 02/25/2023 15:54 INDICATION: Lower abdominal pain. Pelvic pressure. Nausea. Dysuria. TECHNIQUE: Computed tomography (CT) of the abdomen and pelvis was performed with 100 CC Omnipaque 350 intravenous contrast. Automated exposure control and iterative reconstruction technique were employe d. Exam dose: 741.32 mGy-cm total exam DLP. COMPARISON: July 15, 2022 CT abdomen pelvis the cecum is in the FINDINGS: There is chronic discoid atelectasis and/or scarring at the lung bases. There is mild cardiomegaly. No pericardial or pleural effusion. There is a 6.5 mm hypoattenuating lesion of the medial segment of the left hepatic lobe, likely a cys t or hemangioma. Status post cholecystectomy. No bile duct dilatation. There is a large hiatal hernia containing stomach, in addition to part of pancreas and duodenum. Normal splenic size. No pancreatic mass lesion or calcification or ductal dilatation. Normal morphology of the adrenal glands. 8 mm lower pole left renal cyst. No renal mass lesion or urinary tract calculus or hydronephrosis. Diverticulosis of the colon; no CT evidence of diverticulitis. No bowel obstruction or intraperitonea l free air is detected. Normal caliber of the abdominal aorta. No intraperitoneal or retroperitoneal or pelvic mass lesion or adenopathy or ascites. No suspicious osteolytic or osteoblastic lesions are noted. IMPRESSION: Large hiatal hernia containing stomach and parts of the pancreas and duodenum 6.5 mm hypoattenuating medial segment left hepatic lobe lesion, likely a cyst or hemangioma Status post cholecystectomy 8 mm left renal cyst Diverticulosis of the colon Reviewed, dictated and finalized at [facility] Reviewed, dictated and finalized at [facility]. IMPRESSION: Large hiatal hernia containing stomach and parts of the pancreas a nd duodenum 6.5 mm hypoattenuating medial segment left hepatic lobe lesion, likely a cyst o r hemangioma Status post cholecystectomy 8 mm left renal cyst Diverticulosis of the colon
[2023-02-25 12:35] VITALS: BP 165/86; PULSE 83; RESP 18; TEMP 36.8; O2SAT 99
[2023-02-25 13:08] LABS: Appearance Urine Clear (Clear); Bilirubin Urine Negative (Negative); Blood Urine Negative (Negative); Color Urine Yellow (Yellow); Glucose Urine UA Negative (Negative); Ketones Urine Negative (Negative); Leukocyte Esterase Ur Negative LEU/UL (Negative); Nitrate Urine Negative (Negative); Protein Urine Negative (Negative); Specific Grav Ur 1.007 (1.001-1.035); Urobilinogen Urine 0.2 mg/dL (<2.0)
[2023-02-25 13:22] LABS: Add Urine Microscopic? NO
[2023-02-25 15:10] VITALS: PULSE 82; RESP 20; O2SAT 99
--- NOTE | 2023-02-25 15:18 | ED.GENADULT ---
HPI - General Adult General Chief complaint: Urogenital-Female Stated complaint: UTI Time Seen by Provider: 02/25/23 14:47 Source: patient, RN notes reviewed and old records reviewed Mode of arrival: ambulatory Limitations: no limitations History of Present Illness HPI narrative: This is a 68 year old female with history of diverticulitis who presents for evaluation of lower pelvis discomfort. She reports having this pain for 2 weeks. She thought she had a UTI because she used over the counter testing strips. She took antibiotics but she has continued to have pelvis this comfort. She reports nausea and chills. She thinks she may have diverticulitis. She denies constipation or diarrhea. She reports normal bowel movement today. She denies chest pain or shortness of breath. Related Data Home Medications Medication Instructions Recorded Confirmed alprazolam 0.5 mg tablet 0.5 mg PO QID 08/23/21 10/19/22 levothyroxine 88 mcg tablet 88 mcg PO DAILY 08/23/21 10/19/22 (Euthyrox) lisinopril 30 mg tablet 30 mg PO DAILY 08/23/21 10/19/22 Allergies Allergy/AdvReac Type Severity Reaction Status Date / Time sulfamethoxazole Allergy Swelling Verified 10/19/22 19:35 [From Bactrim] of Lip/Tongue/Throat trimethoprim [From Bactrim] Allergy Swelling Verified 10/19/22 19:35 of Lip/Tongue/Throat Review of Systems Constitutional: Constitutional: Reports chills and Denies weakness Cardiovascular: Cardiovascular: Denies syncope, Denies rapid heart rate, Denies irregular heart rhythm, Denies leg edema and Denies dyspnea Respiratory: Respiratory: Denies chest congestion, Denies hemoptysis, Denies excessive phlegm production and Denies dyspnea Gastrointestinal: Gastrointestinal: Reports abdominal pain, Denies hematochezia, Denies diarrhea, Reports nausea and Denies vomiting Genitourinary: Genitourinary: Denies hematuria and Reports dysuria Musculoskeletal: Musculoskeletal: Denies joint swelling, Denies loss of height and Denies muscle weakness Neurologic: Denies syncope, Denies focal weakness and Denies weakness PMFSH Past Medical History Medical History (Updated 02/25/23 @ 16:55 by Ivelisse Garsia MD) Anxiety HTN (hypertension) Surgical History Surgical History History of cholecystectomy History of hysterectomy Family History Family History Mother Hypertension Other Family history of primary malignant neoplasm of liver Family history of throat cancer Social History Social History Smoking status: Never smoker Alcohol intake: never Substance use: never Substance use type: does not use Gender identity (if verbalized by the patient): Female Exam Const: General: healthy appearing, no acute distress and alert Nutritional Appearance: well nourished Orientation/consciousness: patient oriented x3 Limitations: no limitations HENMT: Head: normal to inspection Eyes: EOM: EOMs intact bilaterally Resp: Effort & Inspection: normal respiratory effort Auscultation: clear to auscultation bilaterally Cardio: Rate: regular rate Rhythm: regular rhythm Heart sounds: no murmurs GI: GI Palp: Yes Soft to palpation, Yes Tenderness to palpation present (GI) (mild llq ), No Guarding due to palpation present (GI) and No Rigid due to palpation Auscultation: normal bowel sounds Back/Spine/Pelvis: Back: no CVA tenderness Skin: General skin exam: normal color Rashes: no rashes Neuro: General: patient oriented x3, moves all extremities and CN's II-XI intact bilaterally Extrem: General: normal to inspection Psych: Mental Status: mental status grossly normal Affect: normal affect Attitude: cooperative Course Reevaluation(s) Reevaluation #1: I Discussed with patient CT findings. No acute findings today. She is aware of larg
[2023-02-25 15:21] VITALS: BP 157/82; PULSE 78; RESP 19; O2SAT 98
[2023-02-25 15:21] LABS: Basophils Absolute Auto 0.1 K/mm3 (0.0-0.1); Basophils Percent Auto 0.6 % (0.2-1.2); Eosinophils Percent Auto 0.2 % (0-4.4); Immature Granulocyte Absolute 0.06 K/mm3 (0.00-0.031); Immature Granulocyte Percent A 0.6 % (0-0.5); Lymphocytes Absolute Auto 2.01 K/mm3 (0.9-3.2); Lymphocytes Percent Auto 18.5 % (18.3-44.2); Mean Corpuscular HGB Conc 33.3 g/dl (32-36); Mean Corpuscular Hemoglobin 30.7 pg (26-34); Mean Corpuscular Volume 92.2 fl (80-100); Mean Platelet Volume 9.9 fl (7.4-10.4); Monocytes Absolute Auto 0.4 K/mm3 (0.1-0.6); Monocytes Percent Auto 3.9 % (2.6-8.5); Neutrophils Absolute Auto 8.3 K/mm3 (1.3-6.7); Neutrophils Percent Auto 76.2 % (45.5-73.1); Platelet Count Result 269 k/mm3 (150-375); Red Blood Count 4.88 M/mm3 (4.2-5.4); Red Cell Distribution Width 13.5 % (11.5-14.5); White Blood Count 10.8 K/mm3 (4.5-10.0)
[2023-02-25 15:31] LABS: Alanine Aminotransferase 28 U/L (6-35); Albumin Level 4.4 g/dL (3.5-5.1); Alkaline Phosphatase 126 U/L (38-126); Anion Gap 7 mmol/L (8-16); Aspartate Amino Transferase 32 U/L (14-36); Bilirubin,Total 0.6 mg/dL (0.2-1.3); Blood Urea Nitrogen 16 mg/dL (7-17); Calcium 9.5 mg/dL (8.4-10.2); Carbon Dioxide 28 mmol/L (22-30); Chloride 106 mmol/L (98-107); Estimated CRCL calculation 60 ml/min; Estimated Glomerular Filt Rate 55; Glucose 99 mg/dL (65-110); Lipase 76 U/L (23-300); Potassium 3.7 mmol/L (3.4-5.0); Sodium 141 mmol/L (137-145)
[2023-02-25 17:11] VITALS: BP 144/67; PULSE 77; RESP 19; O2SAT 99
== END 2023-02-25 17:12 | disposition home or self-care (01) ==
PROVIDERS: Emergency Medicine; Emergency Provider General Practice; PCP Physician Assistant
DX: R10.2 Pelvic and perineal pain (principal); I10 Essential (primary) hypertension
CPT/HCPCS: 36415; 74177; 80053; 81003; 81025; 83690; 85025; 99284; Q9967

== ENCOUNTER 2023-04-14 02:22 | Inpatient (IN) | payer MEDICARE, SELFPAY ==
[2023-04-14] VITALS (34 sets, daily range): BP systolic 132–171; BP diastolic 58–113; PULSE 73–136; RESP 16–34; TEMP 36.2–36.4; O2SAT 92–97; BMI 31.0
--- NOTE | ~2023-04-14 | CT_ITS ---
CT of the Abdomen and Pelvis: Indication: Abdominal pain Technique: 2.5 mm axial scans were obtained through the abdomen and pelvis following intravenous adm inistration of 100 cc of Omnipaque 350. Dose reduction technique was used on this scan by utilizing a utomated exposure control and iterative reconstruction technique. The dose-length product (DLP) was 9 95.09 mGy-cm. COMPARISON: 02/25/2023 Findings: Scans through the lung bases and demonstrate mild bibasilar atelectatic change. Large hiat al hernia again present, containing most of the stomach and pancreas. The liver, spleen, pancreas, adrenals and kidneys are within normal limits. Cholecystectomy clips pre sent. No evidence of aortic aneurysm. No lymphadenopathy. There is wall thickening of the mid to distal sigmoid colon with pericolonic inflammatory change and small amount of adjacent free fluid. Findings are most consistent with acute diverticulitis. No defin ite drainable abscess or free air. Images through the pelvis were performed. Urinary bladder unremarkable. Patient is post hysterectomy. No adnexal mass evident. Impression: Sigmoid diverticulitis with adjacent ascites, but no mature, drainable abscess or free air. Stable large hiatal hernia containing most of the stomach and pancreas. Reviewed, dictated and finalized at location . [facility] Impression: Sigmoid diverticulitis with adjacent ascites, but no mature, drainable abscess or free air. Stable large hiatal hernia containing most of the stomach and pancreas.
--- NOTE | 2023-04-14 02:42 | PC.NURSE ---
Patient states lately I have these flare ups after using the eye drops. I went and seen a specialist and he did something with stem cells on my eyes and it got better. I was told to do preservative free and he told me to do twice a day and now I have another flare up. I does feel like a diverticulitis flare up though. Patient states nausea but no vomiting, mid abd pain, does not radiate. ERP notified of patient statements.
[2023-04-14 03:21] LABS: Basophils Absolute Auto 0.1 K/mm3 (0.0-0.1); Basophils Percent Auto 0.4 % (0.2-1.2); Eosinophils Absolute Auto 0.1 K/mm3 (0-0.3); Eosinophils Percent Auto 0.4 % (0-4.4); Hematocrit 48.7 % (37.0-47.0); Hemoglobin 16.2 g/dL (12.0-15.0); Immature Granulocyte Absolute 0.08 K/mm3 (0.00-0.031); Immature Granulocyte Percent A 0.4 % (0-0.5); Lymphocytes Absolute Auto 3.03 K/mm3 (0.9-3.2); Lymphocytes Percent Auto 15.1 % (18.3-44.2); Mean Corpuscular HGB Conc 33.3 g/dl (32-36); Mean Corpuscular Hemoglobin 30.7 pg (26-34); Mean Corpuscular Volume 92.4 fl (80-100); Mean Platelet Volume 10.1 fl (7.4-10.4); Monocytes Absolute Auto 1.2 K/mm3 (0.1-0.6); Monocytes Percent Auto 6.1 % (2.6-8.5); Neutrophils Absolute Auto 15.5 K/mm3 (1.3-6.7); Neutrophils Percent Auto 77.6 % (45.5-73.1); Platelet Count Result 341 k/mm3 (150-375); Red Blood Count 5.27 M/mm3 (4.2-5.4); Red Cell Distribution Width 13.9 % (11.5-14.5)
--- NOTE | 2023-04-14 03:22 | ED.ABDPAIN ---
HPI - Abdominal Pain General Chief Complaint: Abdominal Pain Stated Complaint: abd pain, bloating, nausea Time Seen by Provider: 04/14/23 02:40 History of Present Illness HPI narrative: Patient presents to the emergency department with concern for generalized mid abdominal pain. States that she has had 3 other episodes of similar pain. First 2 episodes which were less concerning she was diagnosed with diverticulitis. The third episode when the pain was worse she was told that her CT scan was unremarkable. She is unsure when she needs to be evaluated or not. Denies all other positive review of systems. Related Data Home Medications Medication Instructions Recorded Confirmed alprazolam 0.5 mg tablet 0.5 mg PO QID 08/23/21 10/19/22 levothyroxine 88 mcg tablet 88 mcg PO DAILY 08/23/21 10/19/22 (Euthyrox) lisinopril 30 mg tablet 30 mg PO DAILY 08/23/21 10/19/22 Allergies Allergy/AdvReac Type Severity Reaction Status Date / Time sulfamethoxazole Allergy Swelling Verified 04/14/23 02:38 [From Bactrim] of Lip/Tongue/Throat trimethoprim [From Bactrim] Allergy Swelling Verified 04/14/23 02:38 of Lip/Tongue/Throat Review of Systems Review of Systems: Review of systems negative except what was documented in the HPI PMFSH Past Medical History Medical History (Updated 04/14/23 @ 07:38 by Jena Weiss MD) Anxiety HTN (hypertension) Surgical History Surgical History History of cholecystectomy History of hysterectomy Family History Family History Mother Hypertension Other Family history of primary malignant neoplasm of liver Family history of throat cancer Social History Social History Smoking status: Never smoker Alcohol intake: never Substance use: never Substance use type: does not use Gender identity (if verbalized by the patient): Female Exam Narrative: GENERAL: Well-appearing, well-nourished, and in no acute distress. HEAD: Normocephalic, atraumatic. EYES: PERRLA and EOMI. ENT: Nares clear, no rhinorrhea or epistaxis. Mucous membranes moist. NECK: Supple. CHEST: Clear to auscultation. No respiratory distress. HEART: Regular rate and rhythm. ABDOMEN: Soft, nontender, nondistended. EXTREMITIES: Normal range of motion. No edema. SKIN: Warm, dry, no rash. NEURO: No focal deficits. Alert and oriented x3. PSYCH: Normal mood and affect. Course Course Emergency Course: Differential diagnosis includes but not limited to gastritis, appendicitis, acute cholecystitis, small bowel obstruction, diverticulitis Patient is currently feeling okay and does not request any pain medication Vital Signs Vital signs: Vital Signs Temperature 36.4 C 04/14/23 02:27 Pulse Rate 136 H 04/14/23 02:27 Respiratory Rate 16 04/14/23 02:27 Blood Pressure 148/97 H 04/14/23 02:27 Pulse Oximetry 96 04/14/23 02:27 Oxygen Delivery Room Air 04/14/23 02:27 Temperature 36.4 C 04/14/23 02:27 Pulse Rate 102 H 04/14/23 07:01 Respiratory Rate 20 04/14/23 07:01 Blood Pressure 161/97 H 04/14/23 07:01 Pulse Oximetry 96 04/14/23 07:01 Oxygen Delivery Room Air 04/14/23 02:27 MDM - Abdominal Pain Lab Data 04/14/23 03:16 04/14/23 03:16 Labs: Lab Results 04/14/23 04/14/23 Range/Units 03:16 03:26 WBC 20.0 H (4.5-10.0) K/mm3 RBC 5.27 (4.2-5.4) M/mm3 Hgb 16.2 H (12.0-15.0) g/dL Hct 48.7 H (37.0-47.0) % MCV 92.4 (80-100) fl MCH 30.7 (26-34) pg MCHC 33.3 (32-36) g/dl RDW 13.9 (11.5-14.5) % Plt Count 341 (150-375) k/mm3 MPV 10.1 (7.4-10.4) fl Immature Gran % (Auto) 0.4 (0-0.5) % Neut % (Auto) 77.6 H (45.5-73.1) % Lymph % (Auto) 15.1 L (18.3-44.2) % [place] % (Auto) 6.1 (2.6-8.5) % Eo
[2023-04-14 03:57] LABS: Alanine Aminotransferase 36 U/L (6-35); Albumin Level 4.8 g/dL (3.5-5.1); Anion Gap 13 mmol/L (8-16); Aspartate Amino Transferase 44 U/L (14-36); Bilirubin,Total 1.2 mg/dL (0.2-1.3); Blood Urea Nitrogen 14 mg/dL (7-17); Calcium 9.9 mg/dL (8.4-10.2); Carbon Dioxide 20 mmol/L (22-30); Chloride 103 mmol/L (98-107); Estimated CRCL calculation 50 ml/min; Estimated Glomerular Filt Rate 50; Glucose 133 mg/dL (65-110); Potassium 3.9 mmol/L (3.4-5.0); Sodium 136 mmol/L (137-145)
[2023-04-14 03:59] LABS: Appearance Urine Clear (Clear); Bacteria Urine Rare /hpf; Bilirubin Urine Negative (Negative); Blood Urine Negative (Negative); Color Urine Dark Yellow (Yellow); Glucose Urine UA Negative (Negative); Ketones Urine 3+ mg/dL (Negative); Leukocyte Esterase Ur 1+ LEU/UL (Negative); Need Manual Microscopic Reviewed; Nitrate Urine Negative (Negative); Protein Urine 1+ mg/dL (Negative); RBC Urine 0-2 /hpf (0-2); Specific Grav Ur 1.022 (1.001-1.035); Squamous Epithelial Cell Urine Moderate /hpf (Few); pH Urine 5.5 (5.0-9.0)
[2023-04-14 04:00] LABS: Add Urine Microscopic? YES
[2023-04-14 04:43] LABS: Alkaline Phosphatase 161 U/L (38-126)
--- NOTE | 2023-04-14 05:52 | PC.NURSE ---
Patient ambulated to the bathroom and back to her room with steady unassisted gait. Patient stated she was anxious and requested to take her own prescribed xanax that she has with her. This RN spoke with ERP, EPR stated okay for patient to take one tab of her own xanax.
[2023-04-14] MEDS: PIPERACILLIN/TAZ 4.5G/NS 100ML 4.5 GM/100 ML BAG IVPB (06:43)
--- NOTE | 2023-04-14 09:01 | ADMGEN ---
This patient, Daksha Washington, was admitted to [facility] Surg Room 331-01. Patient/family oriented to hospital policies and general routines including ID bracelet, bed and alarms, visiting hours, pain management, procedures, bathroom and other care routines, personal items, smoking policy, room service/diet, and visiting hours. Information on how to activate the Rapid Response Team has been discussed. Patient/Family are encouraged to report perceived risks to care and to ask questions if they do not understand what they are told or what they should do.
--- NOTE | 2023-04-14 09:57 | PM.IMHP ---
H&P: HPI History of Present Illness Date/Time: 04/14/23 09:57 Chief Complaint: Abdominal pain Narrative: 68 years old lady with history of hypertension, hypothyroidism, anxiety, present ED with a chief complaint of generalized abdomen pain. Patient has been having right lower quadrant pain in past few days, and is getting worse today. Patient denies vomiting but feeling nauseous. Patient denies diarrhea. Patient denies chest pain, headache, shortness breath, dysuria, focal weakness. Patient came to ED for evaluation in the ED, patient 20,000 with a left shift, tachycardia, tachypnea, CT reveals acute sigmoid diverticulitis, with adjacent fluid. Patient received Zosyn in the ED. ER physician also consulted general surgeon. We admit patient for further issue and management Review of Systems Review of Systems: RO foot S negative except above PMFSH Past Medical History Medical History Anxiety Hiatal hernia HTN (hypertension) Hypothyroidism Surgical History Surgical History (Updated 04/14/23 @ 12:15 by ALBERTO Shook) History of cholecystectomy History of colonoscopy History of hysterectomy Family History Family History Mother Hypertension Sibling Bone cancer Social History Social History Smoking status: Never smoker Alcohol intake: never Substance use: never Substance use type: does not use Lack of Transportation: No Lack of Food: Never True Current Housing: I Have Housing Concerned About Future Housing: No Difficulty Paying Gas/Electric Bills: No Difficulty Paying for Meds: No Currently Unemployed: No Education: Grade School Difficulty w/ Childcare or Family Care: No Gender identity (if verbalized by the patient): Female Spiritual care concerns: No Meds Home Medications and Allergies Home Medications Medication Instructions Recorded Confirmed Type alprazolam 0.5 mg tablet 0.5 mg PO Q6H 08/23/21 04/14/23 History levothyroxine 88 mcg tablet 88 mcg PO DAILY 08/23/21 04/14/23 History (Euthyrox) lisinopril 30 mg tablet 30 mg PO DAILY 08/23/21 04/14/23 History omeprazole 20 mg capsule,delayed 20 mg PO DAILY 04/14/23 04/14/23 History release Allergies Allergy/AdvReac Type Severity Reaction Status Date / Time sulfamethoxazole Allergy Swelling Verified 04/14/23 09:01 [From Bactrim] of Lip/Tongue/Throat trimethoprim [From Bactrim] Allergy Swelling Verified 04/14/23 09:01 of Lip/Tongue/Throat Vital Signs Vital Signs - 24 hr 04/14/23 02:27 04/14/23 02:37 04/14/23 02:38 Temperature 97.6 F Pulse Rate 136 H 135 H 131 H Respiratory Rate 16 21 H 34 H Blood Pressure 148/97 H 171/113 H Pulse Oximetry 96 92 95 Oxygen Delivery Room Air 04/14/23 02:45 04/14/23 03:00 04/14/23 03:01 Temperature Pulse Rate 120 H 102 H 107 H Respiratory Rate 27 H 21 H Blood Pressure 157/99 H Pulse Oximetry 94 95 94 Oxygen Delivery 04/14/23 03:15 04/14/23 03:30 04/14/23 03:32 Temperature Pulse Rate 108 H 109 H 109 H Respiratory Rate 29 H 25 H Blood Pressure 158/90 H Pulse Oximetry 94 95 94 Oxygen Delivery 04/14/23 03:45 04/14/23 04:00 04/14/23 04:01 Temperature Pulse Rate 106 H 108 H 108 H Respiratory Rate 24 H 27 H 29 H Blood Pressure 152/96 H Pulse Oximetry 93 92 92 Oxygen Delivery 04/14/23 04:30 04/14/23 04:31 04/14/23 04:45 Temperature Pulse Rate 100 99 93 Respiratory Rate 23 H 22 H 25 H Blood Pressure 170/91 H Pulse Oximetry 96 94 95 Oxygen Delivery 04/14/23 05:00 04/14/23 05:02 04/14/23 05:15 Temperature Pulse Rate 95 95 95 Respiratory Rate 28 H 20 26 H Blood Pressure 161/82 H Pulse Oximetry 93 93 94 Oxygen Delivery 04/14/23 05:30 04/14/23 05:32 04/14/23 06:46 Temperature Pulse
[2023-04-14 11:23] LABS: Lactic Acid Reflex 1.3 mmol/L (0.7-2.0)
[2023-04-14] MEDS: DEXTROSE 5%/0.9% SOD CHL 1,000 ML 125 ML IV CONT ×2 (11:23→20:51)
[2023-04-14] MEDS: PIPERACILLN/TAZ 3.375GM/NS50ML 3.375 GM/50 ML BAG IVPB ×2 (11:23→17:06)
[2023-04-14] MEDS: FAMOTIDINE 20 MG/2 ML VIAL IV PUSH ×2 (11:23→20:51)
[2023-04-14 11:35] LABS: Glucose Point of Care 104 mg/dl (65-105)
--- NOTE | 2023-04-14 12:01 | PM.CNGS ---
Assessment and Plan Assessment and plan (1) Acute diverticulitis of intestine: Code(s): K57.92 - Diverticulitis of intestine, part unspecified, without perforation or abscess without bleeding Status: Acute Assessment and Plan: CT evidence of sigmoid diverticulitis with adjacent fluid. No organized abscess or free air. No diffuse peritoneal signs on exam. Recommend to continue broad-spectrum IV antibiotics, IV fluids, and analgesics as needed. Will advance to a clear liquid diet. Repeat labs tomorrow. (2) Sepsis: Code(s): A41.9 - Sepsis, unspecified organism Status: Acute Assessment and Plan: Continue IV antibiotics, IV fluids, trend labs. Blood cx pending. (3) HTN (hypertension): Code(s): I10 - Essential (primary) hypertension Status: Acute (4) Hiatal hernia: Code(s): K44.9 - Diaphragmatic hernia without obstruction or gangrene Status: Chronic Assessment and Plan: Large hiatal hernia noted on CT containing most of the stomach and pancreas. Discussed these findings with the patient so she is aware. Not causing any of her acute issues. Plan I have discussed the patient's case and plan of care with Dr. Dumont. Thank you for allowing us to see the patient in consultation and we will continue to follow along with you. History of Present Illness Consult details Consult date: 04/14/23 Reason for consult: other (Diverticulitis, possible perforation) Requesting physician: Jazmine Hartley MD Narrative: This is a 68-year-old woman who we have been asked to see in surgical consultation for acute diverticulitis with possible perforation. She reports noticing chills 3 days ago. She did not feel like she was febrile and did not take her temperature. Yesterday, she developed abdominal pain in her central abdomen. Her pain progressively worsened and she presented to the ER for evaluation overnight. [place] [id number] scan of the abdomen and pelvis showed sigmoid diverticulitis with adjacent ascites, but no mature drainable abscess or free air. CT also showed a stable large hiatal hernia containing most of the stomach and pancreas. She was admitted and started on IV Zosyn, IV fluids, and made NPO. She is now seen. She has no abdominal pain at the time of exam. She reports she has central abdominal pain only with movement or bending this morning. She is passing gas, but no BM for 2 days. She also has not eaten for 2 days. She reports a history of uncomplicated diverticulitis that she was treated for with outpatient antibiotics twice in the past year. Her last episode was in July of 2022. She had her last colonoscopy in 2018 that showed internal hemorrhoids and diverticulosis. Review of Systems Review of Systems: All systems reviewed & are unremarkable except as noted in HPI and below PMFSH Past Medical History Medical History Anxiety Hiatal hernia HTN (hypertension) Hypothyroidism Surgical History Surgical History (Updated 04/14/23 @ 12:15 by ALBERTO Shook) History of cholecystectomy History of colonoscopy History of hysterectomy Family History Family History Mother Hypertension Sibling Bone cancer Social History Social History Smoking status: Never smoker Alcohol intake: never Substance use: never Substance use type: does not use Lack of Transportation: No Lack of Food: Never True Current Housing: I Have Housing Concerned About Future Housing: No Difficulty Paying Gas/Electric Bills: No Difficulty Paying for Meds: No Currently Unemployed: No Education: Grade School Difficulty w/ Childcare or Family Care: No Gender identity (if verbalized by the patient): Female Spiritual care concerns: No Meds Home Medications an
[2023-04-14] MEDS: LORazepam INJ (*CRX) 2 MG/ML VIAL 0.5 MG IV PUSH (14:38)
[2023-04-14] MEDS: ACETAMINOPHEN 325 MG TABLET 650 MG PO (15:33)
[2023-04-14] MEDS: ALPRAZolam (*CRX) 0.5 MG TABLET PO (20:51)
[2023-04-15] MEDS: PIPERACILLN/TAZ 3.375GM/NS50ML 3.375 GM/50 ML BAG IVPB ×4 (00:08→19:26)
[2023-04-15 05:35] VITALS: BP 149/80; PULSE 88; RESP 20; TEMP 36.2; O2SAT 94
[2023-04-15] MEDS: ALPRAZolam (*CRX) 0.5 MG TABLET PO ×5 (05:57→23:51)
[2023-04-15] MEDS: LEVOTHYROXINE SODIUM 88 MCG TABLET PO (05:57)
[2023-04-15] MEDS: DEXTROSE 5%/0.9% SOD CHL 1,000 ML 125 ML IV CONT ×3 (06:00→23:50)
[2023-04-15 07:05] LABS: Hematocrit 41.1 % (37.0-47.0); Mean Corpuscular HGB Conc 31.6 g/dl (32-36); Mean Corpuscular Hemoglobin 30.5 pg (26-34); Mean Corpuscular Volume 96.5 fl (80-100); Mean Platelet Volume 9.9 fl (7.4-10.4); Platelet Count Result 220 k/mm3 (150-375); Red Blood Count 4.26 M/mm3 (4.2-5.4); White Blood Count 8.8 K/mm3 (4.5-10.0)
[2023-04-15 07:22] LABS: Anion Gap 7 mmol/L (8-16); Blood Urea Nitrogen 11 mg/dL (7-17); Calcium 8.3 mg/dL (8.4-10.2); Carbon Dioxide 24 mmol/L (22-30); Chloride 109 mmol/L (98-107); Estimated CRCL calculation 57 ml/min; Estimated Glomerular Filt Rate 55; Glucose 119 mg/dL (65-110); Potassium 3.6 mmol/L (3.4-5.0); Sodium 140 mmol/L (137-145)
--- NOTE | 2023-04-15 10:00 | PM.IMPN ---
Progress Note: A&P Assessment and Plan (1) Acute diverticulitis of intestine: Code(s): K57.92 - Diverticulitis of intestine, part unspecified, without perforation or abscess without bleeding Status: Acute (2) HTN (hypertension): Code(s): I10 - Essential (primary) hypertension Status: Acute (3) Sepsis: Code(s): A41.9 - Sepsis, unspecified organism Status: Acute (4) Anxiety: Code(s): F41.9 - Anxiety disorder, unspecified Status: Acute (5) Abdominal pain: Qualifiers: Abdominal location: generalized Qualified Code(s): R10.84 - Generalized abdominal pain Code(s): R10.9 - Unspecified abdominal pain Status: Acute Plan Acute sigmoid diverticulitis, possible perforation CT reveals Sigmoid diverticulitis with adjacent ascites, but no mature, drainable abscess or free air. Patient received Zosyn in the ED, continue Zosyn IV Keep patient NPO, start normal saline IV Consult general surgery for evaluation and treatment Sepsis Patient had the leukocytosis 20,000, tachycardia tachypnea, meeting criteria of sepsis, likely secondary to acute sigmoid diverticulitis Follow-up blood culture, no growth so far Patient received fluid resuscitation Continue normal saline Iv Leukocytosis improving, afebrile overnight April 15 Essential hypertension Blood pressure normal Hold lisinopril GERD, anxiety, hypothyroidism Hold oral medication possible bowel perforation Anticoagulation per general surgeon Subjective Date/time seen: 04/15/23 10:00 Interval history: Patient feels better today, abdomen pain is improving, denies nausea vomiting, afebrile over the night Exam Narrative: GENERAL: Pleasant, in no acute distress. Well-nourished. - EYES: EOMI. Anicteric. - HENT: Moist mucous membranes. - LUNGS: Clear to auscultation bilaterally, no wheezing, rhonchi, or rales. - CARDIOVASCULAR: Regular rate and rhythm. No murmur. No JVD. - ABDOMEN: Soft, prominent left lower quadrant tender and non-distended. No palpable masses. - EXTREMITIES: No edema. Peripheral pulses 2+. Non-tender. - NEUROLOGIC: No focal neurological deficits. CN II-XII grossly intact. - PSYCHIATRIC: Awake, Alert and oriented x 3. Appropriate mood and affect. - SKIN: No rashes or lesions. Warm. - LYMPH: No cervical lymphadenopathy. Objective Data Vital Signs Vital Signs: Vital Signs - 24 hr 04/14/23 10:02 04/14/23 12:00 04/14/23 14:00 Temperature 97.1 F L 97.5 F L Pulse Rate 104 H 88 Respiratory Rate 20 18 Blood Pressure 158/80 H 141/80 H Pulse Oximetry 97 94 Oxygen Delivery Room Air 04/14/23 16:26 04/14/23 22:00 04/15/23 05:35 Temperature 97.5 F L 97.1 F L Pulse Rate 73 88 Respiratory Rate 18 20 Blood Pressure 139/81 149/80 H Pulse Oximetry 93 96 94 Oxygen Delivery Room Air Intake/Output Intake/Output: Intake & Output 04/13/23 04/13/23 04/14/23 04/15/23 00:59 23:59 23:59 23:59 Intake Total 2347 1200 Balance 2347 1200 Meds/Results Medications: Active Medications Generic Name Dose Route Start Last Admin Trade Name Freq PRN Reason Stop Dose Admin Acetaminophen 650 mg 04/14/23 15:21 04/14/23 15:33 Acetaminophen 325 Mg Tablet PO 650 mg Q4H PRN Administration Mild Pain (1-3) or Fever Alprazolam 0.5 mg 04/14/23 16:00 04/15/23 05:57 Alprazolam (*Crx) 0.5 Mg Tablet PO 0.5 mg 0600,1200,1600,2000 LAUREN Administration Famotidine 20 mg 04/14/23 09:00 04/14/23 20:51 Famotidine 20 Mg/2 Ml Vial IV PUSH 20 mg Q12HR LAUREN Administration Hydromorphone HCl 0.5 mg 04/14/23 10:10 Hydromorphone Hcl Inj (*Crx) 1 Mg/Ml Syr IV PUSH Q3H PRN Chest Pain Dextrose/Sodium Chloride 1,000 mls @ 125 mls/hr 04/14/23 10:10 04/15/23 06:00 Dextrose 5% Sodium Chloride 0.9% IV CONT 125 mls/hr .Q8H LAUREN Administration Piperacillin/Tazobactam/Dextrose 3.375 gm in 50 mls @ 100 mls/hr 04/14/23 12:00 11
[2023-04-15] MEDS: FAMOTIDINE 20 MG/2 ML VIAL IV PUSH ×2 (10:11→20:36)
[2023-04-15] MEDS: lisinopriL 10 MG TABLET 30 MG PO (10:12)
[2023-04-15 14:00] VITALS: BP 132/75; PULSE 75; RESP 18; TEMP 36.5; O2SAT 97
--- NOTE | 2023-04-15 17:52 | PM.PNGS ---
Progress Note: A&P Assessment and Plan (1) Acute diverticulitis of intestine: Code(s): K57.92 - Diverticulitis of intestine, part unspecified, without perforation or abscess without bleeding Status: Acute Assessment and Plan: exam largely benign, will advance to low fiber diet, cont IV abx Subjective Subjective Date/Time Seen: 04/15/23 17:52 Interval history: feels better, decreased abd pain, ángel clears Review of Systems Review of Systems: All systems reviewed & are unremarkable except as noted in HPI and below Exam Const: General: cooperative, comfortable and no acute distress Resp: Auscultation: clear to auscultation bilaterally Cardio: Rate: regular rate Rhythm: regular rhythm GI: Inspection: normal to inspection and non-distended GI Palp: No abdominal tenderness, Yes Soft to palpation, No Firmness to palpation present (GI), No Tenderness to palpation present (GI), No Guarding due to palpation present (GI) and No Rigid due to palpation Objective Data Vital Signs Vital Signs: Vital Signs - 24 hr 04/14/23 22:00 04/15/23 05:35 04/15/23 14:00 Temperature 36.4 C L 36.2 C L 36.5 C Pulse Rate 73 88 75 Respiratory Rate 18 20 18 Blood Pressure 139/81 149/80 H 132/75 Pulse Oximetry 96 94 97 Intake/Output Intake/Output: Intake & Output 04/13/23 04/13/23 04/14/23 04/15/23 00:59 23:59 23:59 23:59 Intake Total 2347 2107 Balance 2347 2107 Meds/Results Medications: Active Medications Generic Name Dose Route Start Last Admin Trade Name Freq PRN Reason Stop Dose Admin Acetaminophen 650 mg 04/14/23 15:21 04/14/23 15:33 Acetaminophen 325 Mg Tablet PO 650 mg Q4H PRN Administration Mild Pain (1-3) or Fever Alprazolam 0.5 mg 04/14/23 16:00 04/15/23 16:05 Alprazolam (*Crx) 0.5 Mg Tablet PO 0.5 mg 0600,1200,1600,2000 LAUREN Administration Famotidine 20 mg 04/14/23 09:00 04/15/23 10:11 Famotidine 20 Mg/2 Ml Vial IV PUSH 20 mg Q12HR LAUREN Administration Hydromorphone HCl 0.5 mg 04/14/23 10:10 Hydromorphone Hcl Inj (*Crx) 1 Mg/Ml Syr IV PUSH Q3H PRN Chest Pain Dextrose/Sodium Chloride 1,000 mls @ 125 mls/hr 04/14/23 10:10 04/15/23 06:00 Dextrose 5% Sodium Chloride 0.9% IV CONT 125 mls/hr .Q8H LAUREN Administration Piperacillin/Tazobactam/Dextrose 3.375 gm in 50 mls @ 100 mls/hr 04/14/23 12:00 04/15/23 12:41 Zosyn 3.375 Gm/Ns 50 Ml IVPB 100 mls/hr Q6H LAUREN Administration Levothyroxine Sodium 88 mcg 04/15/23 06:30 04/15/23 05:57 Levothyroxine Sodium 88 Mcg Tablet PO 88 mcg DAILY@0630 LAUREN Administration Lisinopril 30 mg 04/15/23 09:00 04/15/23 10:12 Lisinopril 10 Mg Tablet PO 30 mg QAM LAUREN Administration Ondansetron HCl 4 mg 04/14/23 10:10 Ondansetron Inj 4 Mg/2 Ml Vial IV PUSH Q6H PRN Nausea And Vomiting Radiology Results: ITS Impressions Abdomen/Pelvis CT 04/14/23 06:16 Impression: Sigmoid diverticulitis with adjacent ascites, but no mature, drainable abscess or free air. Stable large hiatal hernia containing most of the stomach and pancreas. Labs Labs: Laboratory Results - last 24 hr 04/15/23 06:43 WBC 8.8 RBC 4.26 Hgb 13.0 D Hct 41.1 MCV 96.5 MCH 30.5 MCHC 31.6 L RDW 14.0 Plt Count 220 MPV 9.9 Sodium 140 Potassium 3.6 Chloride 109 H Carbon Dioxide 24 Anion Gap 7 L BUN 11 Creatinine 1.00 Estim Creat Clear Calc 57 Estimated GFR 55 L Glucose 119 H Calcium 8.3 L
[2023-04-15 20:19] VITALS: BP 144/81; PULSE 72; RESP 18; TEMP 36.2; O2SAT 98
--- NOTE | 2023-04-15 20:29 | PC.NURSE ---
Pt agreeable throughout shift, ambulating independently. Questioning if she could possibly go home approximately 1530. Advised her I would talk with MD about possible d/c. MD wanting pt to be seen by surgery. Advised MD that surgery had already been by and had said that she was not surgical candidate. MD stated possibly tomorrow. Pt made aware and agreeable.
[2023-04-16] MEDS: PIPERACILLN/TAZ 3.375GM/NS50ML 3.375 GM/50 ML BAG IVPB ×3 (01:04→11:50)
[2023-04-16 05:35] VITALS: BP 150/94; PULSE 66; RESP 16; TEMP 36.1; O2SAT 98
[2023-04-16] MEDS: LEVOTHYROXINE SODIUM 88 MCG TABLET PO (05:47)
[2023-04-16] MEDS: ALPRAZolam (*CRX) 0.5 MG TABLET PO ×3 (05:47→16:15)
[2023-04-16 06:44] VITALS: BP 166/94
[2023-04-16] MEDS: lisinopriL 10 MG TABLET 30 MG PO (06:56)
[2023-04-16] MEDS: FAMOTIDINE 20 MG/2 ML VIAL IV PUSH (08:24)
[2023-04-16 08:25] VITALS: BP 163/85; PULSE 82
--- NOTE | 2023-04-16 09:39 | PM.IMPN ---
Progress Note: A&P Assessment and Plan (1) Acute diverticulitis of intestine: Code(s): K57.92 - Diverticulitis of intestine, part unspecified, without perforation or abscess without bleeding Status: Acute (2) HTN (hypertension): Code(s): I10 - Essential (primary) hypertension Status: Acute (3) Sepsis: Code(s): A41.9 - Sepsis, unspecified organism Status: Acute (4) Anxiety: Code(s): F41.9 - Anxiety disorder, unspecified Status: Acute (5) Abdominal pain: Qualifiers: Abdominal location: generalized Qualified Code(s): R10.84 - Generalized abdominal pain Code(s): R10.9 - Unspecified abdominal pain Status: Acute Plan Acute sigmoid diverticulitis, possible perforation CT reveals Sigmoid diverticulitis with adjacent ascites, but no mature, drainable abscess or free air. Patient received Zosyn in the ED, continue Zosyn IV Keep patient NPO, start normal saline IV Consult general surgery for evaluation and treatment Switch to Augmentin for total 14 days Sepsis Patient had the leukocytosis 20,000, tachycardia tachypnea, meeting criteria of sepsis, likely secondary to acute sigmoid diverticulitis Follow-up blood culture, no growth so far Patient received fluid resuscitation Continue normal saline Iv Leukocytosis improving, afebrile overnight April 15 Essential hypertension Blood pressure normal Resume medication GERD, anxiety, hypothyroidism Resume home medication DVT prophylaxis subQ heparin Subjective Date/time seen: 04/16/23 09:39 Interval history: Patient feels good, tolerated as well, denies abdomen pain, nausea vomiting. Patient afebrile, blood pressure stable overnight Exam Narrative: GENERAL: Pleasant, in no acute distress. Well-nourished. - EYES: EOMI. Anicteric. - HENT: Moist mucous membranes. - LUNGS: Clear to auscultation bilaterally, no wheezing, rhonchi, or rales. - CARDIOVASCULAR: Regular rate and rhythm. No murmur. No JVD. - ABDOMEN: Soft, no tender and non-distended. No palpable masses. - EXTREMITIES: No edema. Peripheral pulses 2+. Non-tender. - NEUROLOGIC: No focal neurological deficits. CN II-XII grossly intact. - PSYCHIATRIC: Awake, Alert and oriented x 3. Appropriate mood and affect. - SKIN: No rashes or lesions. Warm. - LYMPH: No cervical lymphadenopathy. Objective Data Vital Signs Vital Signs: Vital Signs - 24 hr 04/15/23 14:00 04/15/23 20:19 04/16/23 06:44 Temperature 97.7 F 97.2 F L Pulse Rate 75 72 Respiratory Rate 18 18 Blood Pressure 132/75 144/81 H 166/94 H Pulse Oximetry 97 98 04/16/23 05:35 Temperature 96.9 F L Pulse Rate 66 Respiratory Rate 16 Blood Pressure 150/94 H Pulse Oximetry 98 Intake/Output Intake/Output: Intake & Output 04/13/23 04/14/23 04/15/23 04/16/23 23:59 23:59 23:59 23:59 Intake Total 2345 4429 270 Balance 2342 4429 270 Meds/Results Medications: Active Medications Generic Name Dose Route Start Last Admin Trade Name Freq PRN Reason Stop Dose Admin Acetaminophen 650 mg 04/14/23 15:21 04/14/23 15:33 Acetaminophen 325 Mg Tablet PO 650 mg Q4H PRN Administration Mild Pain (1-3) or Fever Alprazolam 0.5 mg 04/14/23 16:00 04/16/23 05:47 Alprazolam (*Crx) 0.5 Mg Tablet PO 0.5 mg 0600,1200,1600,2000 LAUREN Administration Famotidine 20 mg 04/14/23 09:00 04/16/23 08:24 Famotidine 20 Mg/2 Ml Vial IV PUSH 20 mg Q12HR LAUREN Administration Hydromorphone HCl 0.5 mg 04/14/23 10:10 Hydromorphone Hcl Inj (*Crx) 1 Mg/Ml Syr IV PUSH Q3H PRN Chest Pain Piperacillin/Tazobactam/Dextrose 3.375 gm in 50 mls @ 100 mls/hr 04/14/23 12:00 04/16/23 06:17 Zosyn 3.375 Gm/Ns 50 Ml IVPB Infused Q6H LAUREN Infusion Levothyroxine Sodium 88 mcg 04/15/23 06:30 04/16/23 05:47 Levothyroxine Sodium 88 Mcg Tablet PO 88 mcg DAILY@0630 LAUREN Administration Lisinopril 30 mg 04/15/23 09:00 04/16/23 06:56
--- NOTE | 2023-04-16 11:52 | PM.PNGS ---
Progress Note: A&P Assessment and Plan (1) Acute diverticulitis of intestine: Code(s): K57.92 - Diverticulitis of intestine, part unspecified, without perforation or abscess without bleeding Status: Acute Assessment and Plan: Continues to improve. Tolerating a low fiber diet. Abdominal exam benign. WBC normalized yesterday. Okay to discharge patient and transition to oral antibiotics from a surgical standpoint. Follow-up with Dr. Dumont in 2 weeks. At that time, they can also discuss her large hiatal hernia and options for repair. Will consult the dietitian to educate the patient prior to discharge on low vs high fiber diet. Plan I have discussed the patient's case and plan of care with Dr. Dumont. Subjective Subjective Date/Time Seen: 04/16/23 11:52 Patient reports: no new complaints, feels better, pain is less, flatus, bowel movement and afebrile Interval history: Patient seen today. She denies any abdominal pain, nausea, or vomiting. Still has some mild bloating after eating. Had a BM today. Tolerating low fiber diet. Exam Const: General: comfortable and no acute distress Orientation/consciousness: patient oriented x3 GI: Inspection: non-distended GI Palp: Yes Soft to palpation, No Tenderness to palpation present (GI) and No Guarding due to palpation present (GI) Auscultation: normal bowel sounds Objective Data Vital Signs Vital Signs: Vital Signs - 24 hr 04/15/23 14:00 04/15/23 20:19 04/16/23 06:44 Temperature 97.7 F 97.2 F L Pulse Rate 75 72 Respiratory Rate 18 18 Blood Pressure 132/75 144/81 H 166/94 H Pulse Oximetry 97 98 Oxygen Delivery 04/16/23 05:35 04/16/23 08:40 04/16/23 08:25 Temperature 96.9 F L Pulse Rate 66 82 Respiratory Rate 16 Blood Pressure 150/94 H 163/85 H Pulse Oximetry 98 Oxygen Delivery Room Air Intake/Output Intake/Output: Intake & Output 04/13/23 04/14/23 04/15/23 04/16/23 23:59 23:59 23:59 23:59 Intake Total 3143 4429 1170 Balance 2343 4429 1170 Meds/Results Medications: Active Medications Generic Name Dose Route Start Last Admin Trade Name Freq PRN Reason Stop Dose Admin Acetaminophen 650 mg 04/14/23 15:21 04/14/23 15:33 Acetaminophen 325 Mg Tablet PO 650 mg Q4H PRN Administration Mild Pain (1-3) or Fever Alprazolam 0.5 mg 04/14/23 16:00 04/16/23 11:49 Alprazolam (*Crx) 0.5 Mg Tablet PO 0.5 mg 0600,1200,1600,2000 LAUREN Administration Famotidine 20 mg 04/14/23 09:00 04/16/23 08:24 Famotidine 20 Mg/2 Ml Vial IV PUSH 20 mg Q12HR LAUREN Administration Hydromorphone HCl 0.5 mg 04/14/23 10:10 Hydromorphone Hcl Inj (*Crx) 1 Mg/Ml Syr IV PUSH Q3H PRN Chest Pain Piperacillin/Tazobactam/Dextrose 3.375 gm in 50 mls @ 100 mls/hr 04/14/23 12:00 04/16/23 11:50 Zosyn 3.375 Gm/Ns 50 Ml IVPB 100 mls/hr Q6H LAUREN Administration Levothyroxine Sodium 88 mcg 04/15/23 06:30 04/16/23 05:47 Levothyroxine Sodium 88 Mcg Tablet PO 88 mcg DAILY@0630 [facility] Administration Lisinopril 30 mg 04/15/23 09:00 04/16/23 06:56 Lisinopril 10 Mg Tablet PO 30 mg QAM LAUREN Administration Ondansetron HCl 4 mg 04/14/23 10:10 Ondansetron Inj 4 Mg/2 Ml Vial IV PUSH Q6H PRN Nausea And Vomiting Radiology Results: ITS Impressions Abdomen/Pelvis CT 04/14/23 06:16 Impression: Sigmoid diverticulitis with adjacent ascites, but no mature, drainable abscess or free air. Stable large hiatal hernia containing most of the stomach and pancreas.
[2023-04-16 11:59] VITALS: BP 148/82
[2023-04-16 14:00] VITALS: BP 166/80; PULSE 85; RESP 16; TEMP 36.8; O2SAT 96
--- NOTE | 2023-04-16 16:33 | PM.DS ---
DS: Admitting Diagnosis Discharge Date 04/16/23 Admitting Diagnosis (1) Acute diverticulitis of intestine: ?Code(s): K57.92 - Diverticulitis of intestine, part unspecified, without perforation or abscess without bleeding ?Status:?Acute (2) HTN (hypertension): ?Code(s): I10 - Essential (primary) hypertension ?Status:?Acute (3) Sepsis: ?Code(s): A41.9 - Sepsis, unspecified organism ?Status:?Acute (4) Anxiety: ?Code(s): F41.9 - Anxiety disorder, unspecified ?Status:?Acute (5) Abdominal pain: ?Qualifiers: ?Abdominal location:?generalized? Qualified Code(s):?R10.84 - Generalized abdominal pain ?Code(s): R10.9 - Unspecified abdominal pain ?Status:?Acute DS: Discharge Diagnosis Discharge Diagnosis (1) Acute diverticulitis of intestine: Code(s): K57.92 - Diverticulitis of intestine, part unspecified, without perforation or abscess without bleeding Status: Acute (2) HTN (hypertension): Code(s): I10 - Essential (primary) hypertension Status: Acute (3) Sepsis: Code(s): A41.9 - Sepsis, unspecified organism Status: Acute (4) Anxiety: Code(s): F41.9 - Anxiety disorder, unspecified Status: Acute (5) Abdominal pain: Qualifiers: Abdominal location: generalized Qualified Code(s): R10.84 - Generalized abdominal pain Code(s): R10.9 - Unspecified abdominal pain Status: Acute DS: Summary Hospital Course Hospital Course: 68 years old lady with history of hypertension, hypothyroidism, anxiety, present ED with a chief complaint of generalized abdomen pain.? Patient has been having right lower quadrant pain in past few days, and is getting worse today.? Patient denies vomiting but feeling nauseous.? Patient denies diarrhea.? Patient denies chest pain, headache, shortness breath, dysuria, focal weakness.? Patient came to ED for evaluation in the ED, patient 20,000 with a left shift, tachycardia, tachypnea, CT reveals acute sigmoid diverticulitis, with adjacent fluid.? Patient received Zosyn in the ED.? ER physician also consulted general surgeon.? We admit patient for further issue and management The following medical issues have been addressed during hospitalization Acute sigmoid diverticulitis, possible perforation CT reveals Sigmoid diverticulitis with adjacent ascites, but no mature, drainable abscess or free air. Patient received Zosyn in the ED, continue Zosyn IV Keep patient NPO, start normal saline IV Consult general surgery for evaluation and treatment Switch to Augmentin for total 14 days Sepsis Patient had the leukocytosis 20,000, tachycardia tachypnea, meeting criteria of sepsis, likely secondary to acute sigmoid diverticulitis Follow-up blood culture, no growth so far Patient received fluid resuscitation Continue normal saline Iv Leukocytosis improving, afebrile overnight April 15 Essential hypertension Blood pressure normal Resume medication GERD, anxiety, hypothyroidism Resume home medication DVT prophylaxis subQ heparin Hospital course uneventful, patient will be discharged home today, Patient will see general surgeon in the office in 2 weeks Time Spent with Patient Time attestation: Total time spent providing and/or coordinating discharge services: Exam Narrative: GENERAL: Pleasant, in no acute distress. Well-nourished. - EYES: EOMI. Anicteric. - HENT: Moist mucous membranes. - LUNGS: Clear to auscultation bilaterally, no wheezing, rhonchi, or rales. - CARDIOVASCULAR: Regular rate and rhythm. No murmur. No JVD. - ABDOMEN: Soft, no tender and non-distended. No palpable masses. - EXTREMITIES: No edema. Peripheral pulses 2+. Non-tender. - NEUROLOGIC: No focal neurological deficits. CN II-XII grossly intact. - PSYCHIATRIC: Awake, Alert and oriented x 3. Appropriate mood and affect. - SKIN: No rashes or lesions. Warm. - LYMPH: No cervical lymphadenopathy. D
== END 2023-04-16 16:35 | disposition home or self-care (01) | DRG 872 ==
LOC: ANHED 07:38 → ANH3MEDSUR 08:17
PROVIDERS: Nurse Practitioner Family; Admitting Provider Hospitalist; Emergency Provider Emergency Medicine; PCP Physician Assistant; Visit Provider Hospitalist
DX: A41.9 Sepsis, unspecified organism (principal); K57.32 Diverticulitis of large intestine without perforation or abscess without bleeding; I10 Essential (primary) hypertension; E03.9 Hypothyroidism, unspecified; K44.9 Diaphragmatic hernia without obstruction or gangrene; F41.9 Anxiety disorder, unspecified
CPT/HCPCS: 36415; 74177; 80048; 80053; 81001; 82948; 83605; 85025; 85027; 87040; 87086; 87088; 96365; 99285; A9270; J2060; J2543; J7042; Q9967

== ENCOUNTER 2023-07-13 15:22 | Emergency (ER) | payer MEDICARE, SELFPAY ==
[2023-07-13] VITALS (22 sets, daily range): BP systolic 139–163; BP diastolic 67–103; PULSE 74–120; RESP 13–22; TEMP 36.6; O2SAT 95–100
--- NOTE | ~2023-07-13 | CT_ITS ---
EXAMINATION: CT abdomen pelvis w con DATE: 07/13/2023 18:09 INDICATION: ab pain TECHNIQUE: Computed tomography (CT) of the abdomen and pelvis was performed with 100 mL Omnipaque-350 intravenous contrast. Automated exposure control and iterative reconstruction technique were employe d. The dose-length product was 913.09 mGy-cm. COMPARISON: 04/14/2023, 07/15/2022, 02/21/2022. FINDINGS: Lower thorax: Large hiatal hernia containing most of the stomach and pancreas. Bibasilar scar/atelect asis. Coronary artery calcification. Liver: Simple left lobe cyst. Biliary/Gallbladder: Gallbladder is absent. No bile duct dilation. Pancreas: No mass or duct dilation. Spleen: Normal. Adrenals:No mass. Kidneys: No hydronephrosis or obstructing calcification. Left lower pole cyst. GI tract: No small or large bowel dilation. Status post appendectomy. Diverticulosis. Very mild peris igmoid stranding in the pelvis and a region of previously diagnosed diverticulitis. Mesentery/Peritoneum: No ascites, mass, or free air. Retroperitoneum: No mass. Pelvis: Absent uterus. Normal urinary bladder. Coarse calcification in the left ovary. Soft Tissues: Soft tissues and body wall unremarkable. Bones: No acute osseous finding. IMPRESSION: Very mild perisigmoid stranding in a region of previously diagnosed diverticulitis. May represent chr onic change or mild/early diverticulitis. Reviewed, dictated and finalized at location [facility]. [facility] IMPRESSION: Very mild perisigmoid stranding in a region of previously diagnosed diverticuli tis. May represent chronic change or mild/early diverticulitis.
[2023-07-13 15:40] LABS: Basophils Absolute Auto 0.1 K/mm3 (0.0-0.1); Basophils Percent Auto 0.5 % (0.2-1.2); Eosinophils Absolute Auto 0.1 K/mm3 (0-0.3); Eosinophils Percent Auto 0.5 % (0-4.4); Hematocrit 47.7 % (37.0-47.0); Hemoglobin 15.6 g/dL (12.0-15.0); Immature Granulocyte Absolute 0.04 K/mm3 (0.00-0.031); Immature Granulocyte Percent A 0.4 % (0-0.5); Lymphocytes Absolute Auto 2.52 K/mm3 (0.9-3.2); Lymphocytes Percent Auto 22.4 % (18.3-44.2); Mean Corpuscular HGB Conc 32.7 g/dl (32-36); Mean Corpuscular Hemoglobin 30.5 pg (26-34); Mean Corpuscular Volume 93.3 fl (80-100); Mean Platelet Volume 9.6 fl (7.4-10.4); Monocytes Absolute Auto 0.5 K/mm3 (0.1-0.6); Monocytes Percent Auto 4.1 % (2.6-8.5); Neutrophils Absolute Auto 8.1 K/mm3 (1.3-6.7); Neutrophils Percent Auto 72.1 % (45.5-73.1); Platelet Count Result 296 k/mm3 (150-375); Red Blood Count 5.11 M/mm3 (4.2-5.4); Red Cell Distribution Width 13.8 % (11.5-14.5); White Blood Count 11.3 K/mm3 (4.5-10.0)
[2023-07-13 15:50] LABS: Alanine Aminotransferase 35 U/L (6-35); Albumin Level 4.4 g/dL (3.5-5.1); Alkaline Phosphatase 137 U/L (38-126); Anion Gap 6 mmol/L (8-16); Aspartate Amino Transferase 33 U/L (14-36); Bilirubin,Total 0.6 mg/dL (0.2-1.3); Blood Urea Nitrogen 16 mg/dL (7-17); Calcium 9.9 mg/dL (8.4-10.2); Carbon Dioxide 25 mmol/L (22-30); Chloride 110 mmol/L (98-107); Estimated CRCL calculation 46 ml/min; Estimated Glomerular Filt Rate 50; Glucose 124 mg/dL (65-110); Lipase 111 U/L (23-300); Potassium 4.4 mmol/L (3.4-5.0); Sodium 141 mmol/L (137-145)
[2023-07-13 15:51] LABS: Appearance Urine Clear (Clear); Bacteria Urine None Seen /hpf; Bilirubin Urine Negative (Negative); Blood Urine Negative (Negative); Color Urine Yellow (Yellow); Glucose Urine UA Negative (Negative); Ketones Urine Negative (Negative); Leukocyte Esterase Ur 1+ LEU/UL (Negative); Nitrate Urine Negative (Negative); Non Pathogenic Casts 0-2; Protein Urine Negative (Negative); RBC Urine 0-2 /hpf (0-2); Specific Grav Ur 1.016 (1.001-1.035); Squamous Epithelial Cell Urine Few /hpf (Few); Urobilinogen Urine 0.2 mg/dL (<2.0); pH Urine 5.5 (5.0-9.0)
[2023-07-13 16:16] LABS: Add Urine Microscopic? YES
--- NOTE | 2023-07-13 17:04 | ED.ABDPAIN ---
HPI - Abdominal Pain General Chief Complaint: Abdominal Pain Stated Complaint: nausea-diverticulitis Time Seen by Provider: 07/13/23 16:39 History of Present Illness HPI narrative: 68-year-old female presenting to the emergency department for evaluation of generalized abdominal discomfort. Patient reports does have a prior history of diverticulitis. Patient states that yesterday she took prune juice because she was having 3 days of constipation. Patient states she often goes 3-5 days between bowel movements. Patient states in response to the prune juice use she began having increased abdominal discomfort but patient did have a successful bowel movement. Patient states the pain feels similar to her diverticulitis that she had back in April. Related Data Home Medications Medication Instructions Recorded Confirmed alprazolam 0.5 mg tablet 0.5 mg PO Q6H 08/23/21 04/14/23 levothyroxine 88 mcg tablet 88 mcg PO DAILY 08/23/21 04/14/23 (Euthyrox) lisinopril 30 mg tablet 30 mg PO DAILY 08/23/21 04/14/23 omeprazole 20 mg capsule,delayed 20 mg PO DAILY 04/14/23 04/14/23 release Allergies Allergy/AdvReac Type Severity Reaction Status Date / Time sulfamethoxazole Allergy Swelling Verified 07/13/23 15:23 [From Bactrim] of Lip/Tongue/Throat trimethoprim [From Bactrim] Allergy Swelling Verified 07/13/23 15:23 of Lip/Tongue/Throat Review of Systems Review of Systems: All systems reviewed & are unremarkable except as noted in HPI and below PMFSH Past Medical History Medical History (Updated 07/13/23 @ 18:52 by Benedict Teran MD) Anxiety Hiatal hernia HTN (hypertension) Hypothyroidism Surgical History Surgical History (Updated 04/14/23 @ 12:15 by ALBERTO Shook) History of cholecystectomy History of colonoscopy History of hysterectomy Family History Family History Mother Hypertension Sibling Bone cancer Social History Social History Smoking status: Never smoker Alcohol intake: never Substance use: never Substance use type: does not use Lack of Transportation: No Lack of Food: Never True Current Housing: I Have Housing Concerned About Future Housing: No Difficulty Paying Gas/Electric Bills: No Difficulty Paying for Meds: No Currently Unemployed: No Education: Grade School Difficulty w/ Childcare or Family Care: No Gender identity (if verbalized by the patient): Female Spiritual care concerns: No Exam Narrative: APPEARANCE: Well appearing, no pain, no distress, well-nourished. HEAD: normocephalic, atraumatic. EYES: PERRLA/EOMI, conjunctivae clear. NOSE: Normal no drainage NECK: Supple. No adenopathy, no masses. RESPIRATORY: Airway patent, respirations nonlabored. Clear to auscultation bilaterally, no rales, rhonchi, wheezing. CARDIOVASCULAR: Regular rate and rhythm without murmurs rubs or gallops. ABDOMINAL: Soft, nontender, nondistended, normal bowel sounds MUSCULOSKELETAL: Moves all extremities. Strength/ROM intact, No edema, No calf tenderness. NEURO: Alert. Cranial nerves II through XII intact. Good gait. Good coordination SKIN: Warm, dry. Normal Color Course Course Emergency Course: 68-year-old female presenting to the emergency department for evaluation of generalized abdominal discomfort that she states is reminiscent of her previous episode of diverticulitis. CT scan did show some fat stranding in the region where patient had previous diverticulitis. Since patient's symptoms are similar to her previous episodes patient will be treated with Augmentin. Patient states she did not tolerate the dual antibiotic of Cipro and Flagyl. Patient was encouraged to increase her MiraLax dose to help with her frequent constipation. Patient was also encouraged to have close follow-up with GI. All questions and concerns were add
[2023-07-13] MEDS: SODIUM CHLORIDE 0.9% IV 1,000 ML 999 ML IV CONT (17:26)
[2023-07-13] MEDS: LORazepam INJ (*CRX) 2 MG/ML VIAL 1 MG IV PUSH (17:26)
[2023-07-13] MEDS: AMOXICILLIN/CLAVULANATE K 875-125 MG TAB 1 TABLET PO (18:55)
== END 2023-07-13 19:04 | disposition home or self-care (01) ==
PROVIDERS: Emergency Provider Emergency Medicine; PCP Physician Assistant
DX: K57.32 Diverticulitis of large intestine without perforation or abscess without bleeding (principal); I10 Essential (primary) hypertension; E03.9 Hypothyroidism, unspecified; F41.9 Anxiety disorder, unspecified; Z90.49 Acquired absence of other specified parts of digestive tract; Z90.710 Acquired absence of both cervix and uterus
CPT/HCPCS: 36415; 74177; 80053; 81001; 83690; 85025; 87086; 96361; 96374; 99284; A9270; J2060; J7030; Q9967

== ENCOUNTER 2023-07-18 11:41 | Inpatient (IN) | payer MEDICARE, SELFPAY ==
[2023-07-18] VITALS (8 sets, daily range): BP systolic 107–175; BP diastolic 56–102; PULSE 70–125; RESP 16–20; TEMP 36.4–36.9; O2SAT 94–99; BMI 30.7
--- NOTE | ~2023-07-18 | CT_ITS ---
EXAMINATION: CT abdomen pelvis w con INDICATION: Lower abdominal pain TECHNIQUE: Computed tomographic images of the abdomen and pelvis were obtained after the administrati on of 100 cc of Omnipaque 350 intravenous contrast. The dose-length product (DLP) was 977.40 mGy-cm. Automated exposure control and iterative reconstruction technique were employed. COMPARISON: 07/13/2023 FINDINGS: Minimal dependent atelectasis is present in the lung bases. The heart size is normal. Again seen is a large hiatal hernia containing nearly the entire stomach and pancreas. There is a 5 mm cys t in the left hepatic lobe. Changes of cholecystectomy are noted. The spleen, pancreas, and adrenal g lands are normal. Cysts of the kidneys measure up to 8 mm on the left. No pathologically enlarged abd ominal or pelvic lymph nodes are identified. No free intraperitoneal gas or evidence of bowel obstruc tion. Colonic diverticulosis is present without evidence of diverticulitis. There is mild lumbar spon dylosis. IMPRESSION: 1. No CT correlate for the patient's symptoms. Reviewed, dictated and finalized at location B. [facility] [employer]
[2023-07-18 12:35] LABS: Basophils Absolute Auto 0.1 K/mm3 (0.0-0.1); Basophils Percent Auto 0.4 % (0.2-1.2); Eosinophils Percent Auto 0.4 % (0-4.4); Hematocrit 47.3 % (37.0-47.0); Hemoglobin 15.3 g/dL (12.0-15.0); Immature Granulocyte Absolute 0.04 K/mm3 (0.00-0.031); Immature Granulocyte Percent A 0.4 % (0-0.5); Lymphocytes Absolute Auto 1.85 K/mm3 (0.9-3.2); Lymphocytes Percent Auto 16.5 % (18.3-44.2); Mean Corpuscular HGB Conc 32.3 g/dl (32-36); Mean Corpuscular Hemoglobin 30.4 pg (26-34); Mean Corpuscular Volume 93.8 fl (80-100); Mean Platelet Volume 10.2 fl (7.4-10.4); Monocytes Absolute Auto 0.4 K/mm3 (0.1-0.6); Monocytes Percent Auto 3.2 % (2.6-8.5); Neutrophils Absolute Auto 8.9 K/mm3 (1.3-6.7); Neutrophils Percent Auto 79.1 % (45.5-73.1); Platelet Count Result 314 k/mm3 (150-375); Red Blood Count 5.04 M/mm3 (4.2-5.4); Red Cell Distribution Width 14.1 % (11.5-14.5); White Blood Count 11.2 K/mm3 (4.5-10.0)
[2023-07-18 12:47] LABS: Appearance Urine Clear (Clear); Bacteria Urine None Seen /hpf; Bilirubin Urine Negative (Negative); Blood Urine Negative (Negative); Color Urine Yellow (Yellow); Glucose Urine UA Negative (Negative); Ketones Urine 1+ mg/dL (Negative); Leukocyte Esterase Ur 1+ LEU/UL (Negative); Need Manual Microscopic Reviewed; Nitrate Urine Negative (Negative); Non Pathogenic Casts 0-2; Protein Urine Negative (Negative); Specific Grav Ur 1.009 (1.001-1.035); Squamous Epithelial Cell Urine Moderate /hpf (Few); Urobilinogen Urine 0.2 mg/dL (<2.0); pH Urine 5.5 (5.0-9.0)
[2023-07-18 12:48] LABS: Add Urine Microscopic? YES
[2023-07-18 12:49] LABS: Alanine Aminotransferase 35 U/L (6-35); Albumin Level 4.6 g/dL (3.5-5.1); Alkaline Phosphatase 135 U/L (38-126); Anion Gap 9 mmol/L (8-16); Aspartate Amino Transferase 39 U/L (14-36); Bilirubin,Total 0.6 mg/dL (0.2-1.3); Blood Urea Nitrogen 14 mg/dL (7-17); Calcium 10.1 mg/dL (8.4-10.2); Carbon Dioxide 25 mmol/L (22-30); Chloride 106 mmol/L (98-107); Estimated CRCL calculation 53 ml/min; Estimated Glomerular Filt Rate 50; Glucose 126 mg/dL (65-110); Lipase 94 U/L (23-300); Sodium 140 mmol/L (137-145)
[2023-07-18] MEDS: ONDANSETRON INJ 4 MG/2 ML VIAL IV PUSH ×2 (13:28→20:19)
[2023-07-18] MEDS: SODIUM CHLORIDE 0.9% IV 1,000 ML 999 ML IV CONT (13:28)
--- NOTE | 2023-07-18 13:56 | ED.GENADULT ---
HPI - General Adult General Chief complaint: Nausea/Vomiting/Diarrhea Stated complaint: nausea vomitting Time Seen by Provider: 07/18/23 13:05 History of Present Illness HPI narrative: Patient is a 68-year-old female who presents to the emergency department this afternoon complaining of lower abdominal pain and rectal pain after defecation. Patient was seen in our facility on Friday and diagnosed with diverticulitis and discharged home with oral antibiotics. Patient states her symptoms have not improved and have slightly worsened. Patient states that in April of last year she had similar symptoms and ended up with a perforated bowel and is very anxious right now and concerns that he these symptoms mean that she has another perforated bowel. Patient has had a normal colonoscopy approximately 5 years ago which showed diverticulosis. Patient states that she has an appointment with a utilization review nurse on Friday but could not wait until then due to the pain. Patient denies any chest pain, shortness of breath, nausea, vomiting, dysuria, hematuria, melena, hematochezia, fevers or chills. Patient also denies any headaches, dizziness, lightheadedness, blurry visions, focal weakness, numbness and or tingling. There are no other modifying, alleviating, or precipitating factors at this time. Related Data Home Medications Medication Instructions Recorded Confirmed alprazolam 0.5 mg tablet 0.5 mg PO Q6H 08/23/21 04/14/23 levothyroxine 88 mcg tablet 88 mcg PO DAILY 08/23/21 04/14/23 (Euthyrox) lisinopril 30 mg tablet 30 mg PO DAILY 08/23/21 04/14/23 omeprazole 20 mg capsule,delayed 20 mg PO DAILY 04/14/23 04/14/23 release Allergies Allergy/AdvReac Type Severity Reaction Status Date / Time sulfamethoxazole Allergy Swelling Verified 07/13/23 15:23 [From Bactrim] of Lip/Tongue/Throat trimethoprim [From Bactrim] Allergy Swelling Verified 07/13/23 15:23 of Lip/Tongue/Throat Review of Systems Review of Systems: All systems are reviewed and are negative unless stated otherwise in the HPI. [facility] Past Medical History Medical History Anxiety Hiatal hernia HTN (hypertension) Hypothyroidism Surgical History Surgical History History of cholecystectomy History of colonoscopy History of hysterectomy Family History Family History Mother Hypertension Sibling Bone cancer Social History Social History Smoking status: Never smoker Alcohol intake: never Substance use: never Substance use type: does not use Lack of Transportation: No Lack of Food: Never True Current Housing: I Have Housing Concerned About Future Housing: No Difficulty Paying Gas/Electric Bills: No Difficulty Paying for Meds: No Currently Unemployed: No Education: Grade School Difficulty w/ Childcare or Family Care: No Gender identity (if verbalized by the patient): Female Spiritual care concerns: No Exam Narrative: General: Alert, awake, afebrile, in no acute distress. HEENT: PERRL, no rhinorrhea, no post nasal drip, oropharynx clear. Neck: Trachea midline, no JVD, no lymphadenopathy. Cardiovascular: Regular rate and rhythm, no murmurs, rubs or gallops, no peripheral edema. Respiratory: Clear to auscultation bilaterally, no tachypnea, no wheezing, no rhonchi, no rubs, no respiratory distress. Abdomen: Soft, mild nonlocalized diffuse tenderness to palpation, nondistended, no rebound, no guarding, no peritoneal signs. Musculoskeletal: No joint swelling or deformity, normal muscle tone. Skin: No rashes or petechia, no signs of infection. Psychiatric: Alert and oriented, normal behavior and judgment for situation. Neurological: Alert and oriented to person, place, and time. Follows all co
[2023-07-18 14:04] LABS: Influenza A QL RT-PCR Negative (Negative); Influenza B QL RT-PCR Negative (Negative); SARS-CoV-2 RNA PCR Negative (Negative)
[2023-07-18] MEDS: metroNIDAZOLE 500 MG/ISO 100ML 500 MG/100 ML BAG 100 MG IVPB (14:41)
[2023-07-18] MEDS: LORazepam INJ (*CRX) 2 MG/ML VIAL 0.5 MG IV PUSH (15:02)
--- NOTE | 2023-07-18 16:44 | PM.IMHP ---
H&P: HPI History of Present Illness Date/Time: 07/18/23 18:15 Chief Complaint: Lower abdominal pain, nausea, and vomiting. Narrative: This is a 68-year-old female with history of diverticulitis, gastroesophageal reflux disease, large hiatal hernia, hypertension, chronic kidney disease stage 3, and hypothyroidism who presented to the emergency department via private vehicle for evaluation of lower abdominal pain, nausea, and vomiting. The patient provides the following history. She was seen in the ED on 07/13/2023 with similar complaints and a CT of the abdomen and pelvis showed very mild perisigmoid stranding in the region of previously diagnosed diverticulitis which may represent chronic change or mild/early diverticulitis. She was discharged home with antibiotics of which she states compliance. She continues to have an aching pain throughout the abdomen, intermittent nausea, and occasional belching. She had a small but otherwise normal bowel movement yesterday afternoon and for about an hour thereafter she was having pain and discomfort in the rectum. She endorses chills but has not had a fever. Appetite and oral intake have been poor. She denies vomiting. No blood or mucus in the stool. She returned today for ongoing symptoms. She has an appointment this coming Friday with GI but did not think she could make it until then due to ongoing symptoms. Vital signs were stable on arrival to the ED. Labs were significant for WBC count of 11.2, hemoglobin 15.3, creatinine 1.10. I was asked to admit the patient for further treatment and evaluation and requested a repeat CT of the abdomen and pelvis to rule out perforation or other complication. CT scan revealed a large hiatal hernia containing nearly the entire stomach and pancreas which is known to the patient and colonic diverticulosis without evidence of diverticulitis. Review of Systems Review of Systems: Twelve systems were reviewed and are negative except for as per HPI. [facility] Past Medical History Medical History (Updated 07/18/23 @ 23:01 by Tamra Avila PA-C) Anxiety Chronic kidney disease, stage 3 Baseline creatinine is between 1.0 and 1.10. GFR ranges between 50 and 55. Diverticulitis Gastroesophageal reflux disease Hiatal hernia Containing nearly the entire stomach and part of the pancreas. Hypertension Hypothyroidism Surgical History Surgical History History of cholecystectomy History of colonoscopy History of hysterectomy Family History Family History Mother Hypertension Sibling Bone cancer Social History Social History (Updated 07/18/23 @ 23:01 by Tamra Avila PA-C) Social History: Surrogate medical decision maker: Lizeth Pena, sibling Code status: Full code. Smoking status: Never smoker Alcohol intake: never Substance use: never Substance use type: does not use Do You Feel Safe in your Home?: Yes Lack of Transportation: No Lack of Food: Never True Current Housing: I Have Housing Concerned About Future Housing: No Difficulty Paying Gas/Electric Bills: No Difficulty Paying for Meds: No Currently Unemployed: No Education: Grade School Difficulty w/ Childcare or Family Care: No Additional living arrangements comments: The patient lives in her own home in [place]. Additional occupation/education comments: Retired. Spiritual care concerns: No Meds Home Medications and Allergies Home Medications Medication Instructions Recorded Confirmed Type alprazolam 0.5 mg tablet 0.5 mg PO Q6H 08/23/21 07/18/23 History levothyroxine 88 mcg tablet 88 mcg PO DAILY 08/23/21 07/18/23 History (Euthyrox) lisinopril 30 mg tablet 30 mg PO DAILY 08/23/21 07/18/23 History omeprazole 20 mg capsule,delayed 20 mg PO DAILY 04/14/23 07/18/23 History release amoxicillin 875 mg-potassium 1 tablet PO Q12H #22
--- NOTE | 2023-07-18 17:38 | ADMGEN ---
This patient, Daksha Washington, was admitted to [facility] Surg Room 322-01. Patient/family oriented to hospital policies and general routines including ID bracelet, bed and alarms, visiting hours, pain management, procedures, bathroom and other care routines, personal items, smoking policy, room service/diet, and visiting hours. Information on how to activate the Rapid Response Team has been discussed. Patient/Family are encouraged to report perceived risks to care and to ask questions if they do not understand what they are told or what they should do.
[2023-07-18] MEDS: LACTATED RINGERS 1,000 ML 100 ML IV CONT (19:30)
[2023-07-18] MEDS: AMOXICILLIN/CLAVULANATE K 875-125 MG TAB 1 TABLET PO (20:19)
[2023-07-18] MEDS: ALPRAZolam (*CRX) 0.5 MG TABLET 1 MG PO (20:32)
[2023-07-19] MEDS: ONDANSETRON INJ 4 MG/2 ML VIAL IV PUSH ×2 (05:24→12:36)
[2023-07-19 06:00] VITALS: BP 102/67; PULSE 70; RESP 14; TEMP 36.7; O2SAT 93
[2023-07-19] MEDS: ALPRAZolam (*CRX) 0.5 MG TABLET PO ×2 (06:20→12:31)
[2023-07-19] MEDS: LEVOTHYROXINE SODIUM 88 MCG TABLET PO (06:20)
[2023-07-19 07:16] LABS: Hematocrit 42.2 % (37.0-47.0); Hemoglobin 13.7 g/dL (12.0-15.0); Mean Corpuscular HGB Conc 32.5 g/dl (32-36); Mean Corpuscular Hemoglobin 30.9 pg (26-34); Mean Platelet Volume 10.2 fl (7.4-10.4); Platelet Count Result 215 k/mm3 (150-375); Red Blood Count 4.44 M/mm3 (4.2-5.4); Red Cell Distribution Width 13.9 % (11.5-14.5); White Blood Count 7.4 K/mm3 (4.5-10.0)
[2023-07-19 07:35] LABS: Alanine Aminotransferase 32 U/L (6-35); Albumin Level 3.7 g/dL (3.5-5.1); Alkaline Phosphatase 106 U/L (38-126); Anion Gap 6 mmol/L (8-16); Aspartate Amino Transferase 36 U/L (14-36); Bilirubin,Total 0.6 mg/dL (0.2-1.3); Blood Urea Nitrogen 10 mg/dL (7-17); Calcium 9.1 mg/dL (8.4-10.2); Carbon Dioxide 25 mmol/L (22-30); Chloride 109 mmol/L (98-107); Estimated CRCL calculation 54 ml/min; Estimated Glomerular Filt Rate 50; Glucose 99 mg/dL (65-110); Magnesium 2.1 mg/dL (1.6-2.3); Potassium 4.1 mmol/L (3.4-5.0); Sodium 140 mmol/L (137-145)
[2023-07-19 08:00] LABS: Thyroid Stimulating Hormone Reflex 0.205 uIU/mL (0.465-4.68)
[2023-07-19 08:20] VITALS: BP 139/65; BP 142/73; PULSE 69; RESP 16; TEMP 35.9; O2SAT 94
[2023-07-19] MEDS: PANTOPRAZOLE 40 MG TABLET PO (08:24)
[2023-07-19] MEDS: AMOXICILLIN/CLAVULANATE K 875-125 MG TAB 1 TABLET PO (08:24)
[2023-07-19] MEDS: lisinopriL 10 MG TABLET 30 MG PO (08:24)
[2023-07-19 08:58] VITALS: BP 140/74
[2023-07-19 09:10] LABS: Free T4 Free Thyroxine Reflex 2.08 ng/dL (0.78-2.19)
--- NOTE | 2023-07-19 10:22 | WPDGICN ---
Assessment and Plan Assessment and plan (1) Abdominal pain: Code(s): R10.9 - Unspecified abdominal pain Status: Acute Assessment and Plan: her pain has been present for the past week. He did not respond to antibiotics that she was given when she was seen in the emergency room last week and CT showed very mild perisigmoid stranding. The pain has not changed. Is not localized. (2) Nausea: Code(s): R11.0 - Nausea Status: Acute Assessment and Plan: She has not felt like eating much last couple days but has not had emesis. There has been no chest pain that would suggest torsion of her hiatal hernia. (3) Constipation: Code(s): K59.00 - Constipation, unspecified Status: Acute Assessment and Plan: This is chronic but worse since her April hospitalization for diverticulitis. She admits she does not eat breakfast. She has been trying to eat more vegetables like broccoli. (4) Diverticulitis: Code(s): K57.92 - Diverticulitis of intestine, part unspecified, without perforation or abscess without bleeding Status: Acute Assessment and Plan: No evidence of active diverticulitis. She had been given a couple of doses of intravenous antibiotics but her IV is now discontinued in anticipation of discharge today. (5) Hiatal hernia: Code(s): K44.9 - Diaphragmatic hernia without obstruction or gangrene Status: Chronic Plan I suggested to her that she go on a low residue diet. Will give her full liquids this morning because she did not feel like eating much last night. I would start MiraLax once daily and advised her to do this continuously at home. I also suggested that she try to take fiber fiber supplements or high-fiber breakfast daily. She should keep her appointment with our office for Friday, Unless her symptoms have resolved. GI Consult Note Consult date/time: 07/19/23 10:22 HPI: Daksha Washington is a 68 year old female Who had been in the emergency room last week with complaints that sound like her previous episodes of diverticulitis wherein she had discomfort throughout her abdomen which was aching but not severe accompanied by some nausea. She had put herself on a liquid diet. She was sent home on antibiotics which she did take and was supposed to be seen in our office this coming Friday. She came back to the emergency room yesterday because of persistent symptoms. She has not had diarrhea or blood in stools and the fact she has chronic constipation worsening since her last episode of diverticulitis last fall. She has taken a few fiber supplement tablets. She has picked up Dulcolax type product and taking a few of them. She feels that it is very difficult to have a bowel movement. Her last stool a few days ago was brown and formed. She is under a great deal of stress because of her sister has metastatic breast cancer. She is known to have a large hiatal hernia with most of her stomach and her pancreas also Being intrathoracic. her weight is stable. Review of Systems Review of Systems: All systems reviewed & are unremarkable except as noted in HPI and below PMFSH Past Medical History Medical History Anxiety Chronic kidney disease, stage 3 Baseline creatinine is between 1.0 and 1.10. GFR ranges between 50 and 55. Diverticulitis Gastroesophageal reflux disease Hiatal hernia Containing nearly the entire stomach and part of the pancreas. 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
[2023-07-19 12:46] LABS: Total Triiodothyronine (T3) 1.04 NG/ML (0.97-1.69)
[2023-07-19 13:35] VITALS: BP 132/69; PULSE 61; RESP 16; TEMP 36.2; O2SAT 94
--- NOTE | 2023-07-19 14:18 | PM.DS ---
DS: Admitting Diagnosis Discharge Date 07/19/23 Admitting Diagnosis Acute nonspecific abdominal pain, Acute diverticulitis, failed outpatient therapy DS: Discharge Diagnosis Discharge Diagnosis (1) Abdominal pain: Qualifiers: Abdominal location: generalized Qualified Code(s): R10.84 - Generalized abdominal pain Code(s): R10.9 - Unspecified abdominal pain Status: Acute Assessment and Plan: Pt admits to generalized abdominal pain of which she described as fullness. She has not had a bowel movement since - when rectal pain began to occur. Non-frequent bowel movements are a normal pattern for her. She endorses chills but has not had a fever. Appetite and oral intake have been poor. She has an appointment this coming Friday with GI- Dr Herbert. Vital signs were stable on arrival to the ED. Labs were significant for WBC count of 11.2, hemoglobin 15.3, creatinine 1.10. She was IV hydrated overnight. Today WBC of 7.4, hemoglobin 13.7 and Creatinine 1.10. Patient expressed that she feels better and does not have any nausea at this time. Repeat CT of the abdomen and pelvis to rule out perforation or other complication revealed a large hiatal hernia containing nearly the entire stomach and pancreas which is known to the patient and colonic diverticulosis without evidence of diverticulitis. Will continue p.o. Augmentin until completion. Her symptoms may be related to her large hiatal hernia as she seems to describe more discomfort in the upper abdomen. GI was consulted and we appreciate recommendations for care as he noted that patient is stable for discharge. He noted that patient does not express any concerns for chest pain that would suggestive of torsion of her hiatal hernia. (2) Rectal pain: Code(s): K62.89 - Other specified diseases of anus and rectum Status: Acute Assessment and Plan: Patient has experienced increased constipation since April when she was initially diagnosed with diverticulitis. Patient stated she experienced rectal pain upon defecation, she described it as shooting. This pain has not occurred since last defecation on . Dr Herbert of GI consulted and noted that patients history of constipation. He suggest thaty she try fiber supplements at home or high-fiber breakfast and Miralax daily which she should continue at home. GI notes that patient is stable for discharge and should keep her appointment in his office on Friday. (3) Chronic kidney disease, stage 3: Code(s): N18.30 - Chronic kidney disease, stage 3 unspecified Status: Acute Assessment and Plan: Hydrated over night. Labs today show WBC of 7.4, hemoglobin 13.7 and Creatinine 1.10. Baseline for patient (4) Hypertension: Code(s): I10 - Essential (primary) hypertension Status: Acute Assessment and Plan: Continue home blood pressure medications. BP today 132/69. (5) Hypothyroidism: Code(s): E03.9 - Hypothyroidism, unspecified Status: Acute Assessment and Plan: Continue home Synthroid. Today TSH 0.205, T4- 2.08, T3- 1.04 (6) Gastroesophageal reflux disease: Code(s): K21.9 - Gastro-esophageal reflux disease without esophagitis Status: Acute Assessment and Plan: Patient denies nausea or burning at this time. Continue home Protonix. DS: Summary Hospital Course Reason for hospitalization: Acute nonspecific abdominal pain, Acute diverticulitis, failed outpatient therapy Hospital Course: 68 year old patient presented to the emergency department for ongoing abdominal pain and nausea after being diagnosed with mild diverticulitis. She has been taking augment at home but symptoms continue. She was admitted for IV hydration, abx and repear CT scan. CT scan did not show any acute findings thus will continue p.o. Augmentin until completion. GI was consulted and suggest fiber supplement, high-fiber diet and miralax daily. Patient has a previ
--- NOTE | 2023-07-19 15:45 | PC.NURSE ---
Home med Alprazolam 0.5mg x 27 pieces verified by second RN and returned to patient at discharge.
--- NOTE | 2023-07-23 07:09 | PC.NURSE ---
Urine cx is negative.
== END 2023-07-19 15:45 | disposition home or self-care (01) | DRG 392 ==
LOC: ANHED 14:07 → ANH3MEDSUR 15:13
PROVIDERS: Physician Assistant; Admitting Provider Internal Medicine; Emergency Provider Emergency Medicine; PCP Physician Assistant; Visit Provider Nurse Practitioner Family
DX: K57.30 Diverticulosis of large intestine without perforation or abscess without bleeding (principal); N18.30 Chronic kidney disease, stage 3 unspecified; I12.9 Hypertensive chronic kidney disease with stage 1 through stage 4 chronic kidney disease, or unspecified chronic kidney disease; E03.9 Hypothyroidism, unspecified; K21.9 Gastro-esophageal reflux disease without esophagitis; Z20.822 Contact with and (suspected) exposure to COVID-19; Z90.49 Acquired absence of other specified parts of digestive tract; Z90.710 Acquired absence of both cervix and uterus
CPT/HCPCS: 36415; 74177; 80053; 81001; 83690; 83735; 84439; 84443; 84480; 85025; 85027; 87086; 87636; 96374; 99285; A9270; J0696; J1836; J2060; J2405; J7030; J7120; Q9967

== ENCOUNTER 2023-09-05 18:14 | Emergency (ER) | payer MEDICARE, SELFPAY ==
--- NOTE | 2023-09-05 18:22 | ED.URI ---
HPI - URI/Sore Throat General Chief Complaint: Upper Respiratory Infection Stated Complaint: Sinus Time Seen by Provider: 09/05/23 18:38 Source: patient and RN notes reviewed Mode of arrival: ambulatory Limitations: no limitations History of Present Illness HPI Narrative: 68-year-old female presents concern for over 1 week history of sinus congestion, pressure, pain, sneezing, postnasal drainage, eye puffiness. Reports she is taking cold medicines without relief and they make her tired. She denies fever, cough. MD elicited complaint: nasal congestion and sinus pain Related Data Home Medications Medication Instructions Recorded Confirmed alprazolam 0.5 mg tablet 0.5 mg PO Q6H 08/23/21 07/22/23 levothyroxine 88 mcg tablet 88 mcg PO DAILY 08/23/21 07/22/23 (Euthyrox) lisinopril 30 mg tablet 30 mg PO DAILY 08/23/21 07/22/23 omeprazole 20 mg capsule,delayed 20 mg PO DAILY 04/14/23 07/22/23 release Allergies Allergy/AdvReac Type Severity Reaction Status Date / Time sulfamethoxazole Allergy Swelling Verified 09/05/23 18:20 [From Bactrim] of Lip/Tongue/Throat trimethoprim [From Bactrim] Allergy Swelling Verified 09/05/23 18:20 of Lip/Tongue/Throat Review of Systems Review of Systems: CONSTITUTIONAL: Denies malaise, chills, sweats, or fever. EYES: Denies visual changes, redness, or discharge. ENT: Reports rhinorrhea, congestion, sinus pain CARDIOVASCULAR: Denies chest pain, palpitations, or edema. RESPIRATORY: Denies cough. Denies dyspnea. GASTROINTESTINAL: Denies abdominal pain, nausea, vomiting, diarrhea SKIN: Denies rash or itching. MUSCULOSKELETAL: Denies myalgia. NEUROLOGIC: Denies headache. All systems reviewed & are unremarkable except as noted in HPI and below PMFSH Past Medical History Medical History Anxiety Chronic kidney disease, stage 3 Baseline creatinine is between 1.0 and 1.10. GFR ranges between 50 and 55. Diverticulitis Gastroesophageal reflux disease Hiatal hernia Containing nearly the entire stomach and part of the pancreas. Hypertension Hypothyroidism Surgical History Surgical History History of cholecystectomy History of colonoscopy History of hysterectomy Family History Family History Mother Hypertension Sibling Bone cancer Social History Social History Social History: Surrogate medical decision maker: Lizeth Pena, sibling Code status: Full code. Smoking status: Never smoker Alcohol intake: never Substance use: never Substance use type: does not use Do You Feel Safe in your Home?: Yes Lack of Transportation: No Lack of Food: Never True Current Housing: I Have Housing Concerned About Future Housing: No Difficulty Paying Gas/Electric Bills: No Difficulty Paying for Meds: No Currently Unemployed: No Education: Grade School Difficulty w/ Childcare or Family Care: No Additional living arrangements comments: The patient lives in her own home in [place]. Additional occupation/education comments: Retired. Spiritual care concerns: No Comments At time of signature, agree with nursing past medical, surgical, social and family history. There is no relevant family history pertinent to the presenting complaint Exam Narrative: GENERAL: Well-appearing, well-nourished, and in no acute distress. HEAD: Normocephalic EYES: PERRLA, conjunctivae clear ENT: Nares clear, turbinates edematous and erythematous. Mucous membranes moist. TM pearly roblero with dull light reflex bilaterally; no tragal tenderness. Oropharynx not erythematous without lesions. Tonsils not enlarged and without exudate, no drooling, no hoarseness, no trismus, uvula midline. NECK: Supple. No lymphadenopathy CHEST: Clear to auscult
[2023-09-05 18:25] VITALS: BP 145/90; PULSE 105; RESP 16; TEMP 36.3; O2SAT 97
== END 2023-09-05 18:48 | disposition home or self-care (01) ==
PROVIDERS: Emergency Provider Nurse Practitioner; PCP Physician Assistant
DX: J01.90 Acute sinusitis, unspecified (principal); I12.9 Hypertensive chronic kidney disease with stage 1 through stage 4 chronic kidney disease, or unspecified chronic kidney disease; N18.30 Chronic kidney disease, stage 3 unspecified; K21.9 Gastro-esophageal reflux disease without esophagitis; E03.9 Hypothyroidism, unspecified; F41.9 Anxiety disorder, unspecified
CPT/HCPCS: 99213; G0463

== ENCOUNTER 2023-09-10 08:56 | Emergency (ER) | payer MEDICARE, SELFPAY ==
--- NOTE | ~2023-09-10 | XR_ITS ---
XR chest 2V DATE: 09/10/2023 09:57 INDICATION: Pain TECHNIQUE: AP and lateral views COMPARISON: None FINDINGS: There are large hiatal hernia projecting into the posterolateral right lower chest, with ai r-fluid levels. Normal heart size. No hilar or mediastinal enlargement. No pulmonary infiltrate or consolidation, pleural effusion or pulmonary vascular congestion or pneumo thorax is detected. Surgical clips, right upper quadrant, consistent with cholecystectomy. IMPRESSION: Very large hiatal hernia No active cardiopulmonary disease Reviewed, dictated and finalized at location B.
--- NOTE | ~2023-09-10 | CT_ITS ---
EXAMINATION: CT brain wo con DATE: 09/10/2023 09:41 INDICATION: Head injury. TECHNIQUE: Computed tomography (CT) of the head was performed without intravenous contrast. The mA wa s adjusted according to patient size. Iterative reconstruction technique was employed. The dose-lengt h product was 605.33 mGy-cm. COMPARISON: None. FINDINGS: There is no intracranial hemorrhage, acute infarction, or abnormal intracranial mass lesion . The ventricles are normal in size. The orbits are normal. There is mucosal thickening in the parana louise sinuses. There are trace bilateral mastoid effusions. There is left cheek soft tissue swelling. IMPRESSION: 1. Normal brain. Reviewed, dictated and finalized at location A. IMPRESSION: 1. Normal brain.
--- NOTE | ~2023-09-10 | XR_ITS ---
EXAMINATION: XR hip BI 2V w AP pelvis DATE: 09/10/2023 09:57 INDICATION: Pelvic pain, left worse than right. Fall. TECHNIQUE: An anteroposterior view of the pelvis and 2 views of each hip were obtained. COMPARISON: None. FINDINGS: Bone alignment is normal. No fracture. There is mild osteoarthritis of the hips. IMPRESSION: 1. Mild osteoarthritis of the hips. Reviewed, dictated and finalized at location A.
--- NOTE | ~2023-09-10 | CT_ITS ---
Non-contrast CT scan of the Pelvis Clinical indication: Pain Technique: 2.5 mm axial scans were obtained through the pelvis without intravenous or oral contrast. Dose reduction technique was used on this scan by utilizing automated exposure control and iterative reconstruction technique. The dose-length product (DLP) was 430.61 mGy-cm. Findings: No acute fracture or dislocation seen. Bilateral hip joint spaces are preserved. SI joints are intact. No joint effusion evident. Visualized musculature appears intact. No hematoma or soft tis joe mass/soft tissue fluid collection identified. No lymphadenopathy seen. No pelvic mass evident. Urinary bladder unremarkable. Visualized bowel loops are unremarkable. Impression: No acute abnormalities. No fracture or dislocation. Reviewed, dictated and finalized at location . Impression: No acute abnormalities. No fracture or dislocation.
--- NOTE | ~2023-09-10 | CT_ITS ---
EXAMINATION: CT facial bones wo con DATE: 09/10/2023 09:41 INDICATION: Left face injury. TECHNIQUE: Computed tomography (CT) of the facial bones and maxillofacial region was performed withou t intravenous contrast. Automated exposure control and iterative reconstruction technique were employ ed. The dose-length product was 323.10 mGy-cm. COMPARISON: None. FINDINGS: There is left cheek soft tissue swelling. The orbits are normal. There is leftward deviatio n of the nasal septum. There is mucosal thickening in the paranasal sinuses. IMPRESSION: 1. No fracture. Reviewed, dictated and finalized at location A. IMPRESSION: 1. No fracture.
--- NOTE | ~2023-09-10 | XR_ITS ---
AP and lateral views of the left femur Clinical History: Pain Findings: No acute fracture or dislocation is seen. Osseous alignment is anatomic. Visualized joint s paces are grossly preserved. Soft tissues are unremarkable. Impression: Unremarkable left femoral radiographs. Reviewed, dictated and finalized at location M. Impression: Unremarkable left femoral radiographs.
[2023-09-10 08:57] VITALS: BP 154/83; PULSE 104; RESP 20; TEMP 36.6; O2SAT 96
[2023-09-10 09:03] VITALS: BP 148/75; PULSE 102; RESP 20; O2SAT 98
--- NOTE | 2023-09-10 09:17 | ED.GENADULT ---
HPI - General Adult General Chief complaint: Fall Stated complaint: Fall, left leg pain Time Seen by Provider: 09/10/23 08:59 History of Present Illness HPI narrative: Daksha Washington is a 68 y/o female with PMhx of anxiety/htn/ hiatal hernia/ hypothyroid who presents today with reports of mechanical fall down one stair at about 0800 today. Reports she hit her head on the left side of her face/ left hip. She complains of pain to her face and left hip / pelvic area. Denies LOC / not on any blood thinners. Related Data Home Medications Medication Instructions Recorded Confirmed alprazolam 0.5 mg tablet 0.5 mg PO Q6H 08/23/21 09/10/23 levothyroxine 88 mcg tablet 88 mcg PO DAILY 08/23/21 09/10/23 (Euthyrox) lisinopril 30 mg tablet 30 mg PO DAILY 08/23/21 09/10/23 omeprazole 20 mg capsule,delayed 20 mg PO DAILY 04/14/23 09/10/23 release Allergies Allergy/AdvReac Type Severity Reaction Status Date / Time sulfamethoxazole Allergy Swelling Verified 09/10/23 09:02 [From Bactrim] of Lip/Tongue/Throat trimethoprim [From Bactrim] Allergy Swelling Verified 09/10/23 09:02 of Lip/Tongue/Throat Review of Systems Review of Systems: CONSTITUTIONAL: Denies fever, chills, or sweats. EYES: Denies visual changes, redness, or discharge. ENT: Denies rhinorrhea, congestion, sore throat, or otalgia. CARDIOVASCULAR: Denies chest pain, palpitations, or edema. RESPIRATORY: Denies cough or dyspnea. GASTROINTESTINAL: Denies abdominal pain, nausea, vomiting, or diarrhea. GENITOURINARY: Denies dysuria or hematuria. SKIN: Denies rash or itching. MUSCULOSKELETAL: Complains of pain to her left hip/ pelvis and her face NEUROLOGIC: Denies headache, numbness, dizziness, or weakness. PSYCHIATRIC: Denies anxiety or depression. [facility] Past Medical History Medical History Anxiety Chronic kidney disease, stage 3 Baseline creatinine is between 1.0 and 1.10. GFR ranges between 50 and 55. Diverticulitis Gastroesophageal reflux disease Hiatal hernia Containing nearly the entire stomach and part of the pancreas. Hypertension Hypothyroidism Surgical History Surgical History History of cholecystectomy History of colonoscopy History of hysterectomy Family History Family History Mother Hypertension Sibling Bone cancer Social History Social History Social History: Surrogate medical decision maker: Lizethross Pena, sibling Code status: Full code. Smoking status: Never smoker Alcohol intake: never Substance use: never Substance use type: does not use Do You Feel Safe in your Home?: Yes Lack of Transportation: No Lack of Food: Never True Current Housing: I Have Housing Concerned About Future Housing: No Difficulty Paying Gas/Electric Bills: No Difficulty Paying for Meds: No Currently Unemployed: No Education: Grade School Difficulty w/ Childcare or Family Care: No Additional living arrangements comments: The patient lives in her own home in [place]. Additional occupation/education comments: Retired. Spiritual care concerns: No Exam Narrative: GENERAL: Well-appearing, well-nourished, and in no acute distress. HEAD: Normocephalic, Abrasions noted to the left side below the left eye no active bleeding noted EYES: PERRLA and EOMI, no nystagmus noted ENT: Nares clear, no rhinorrhea or epistaxis. Mucous membranes moist. Oropharynx without tonsillar hypertrophy exudate or other lesions. Bilateral TMs pearly roblero non bulging NECK: Supple. No adenopathy or masses. No carotid bruits or JVD CHEST: Clear to auscultation. No respiratory distress. No wheezes rales or rhonchi HEART: Regular rate and rhythm. No murmur heard. Normal peripheral pulses. ABDOMEN: Soft, nontender, n
[2023-09-10] MEDS: LORazepam (*CRX) 1 MG TABLET PO (09:26)
[2023-09-10] MEDS: ONDANSETRON INJ 4 MG/2 ML VIAL IV PUSH (10:20)
[2023-09-10] MEDS: KETOROLAC 30 MG/ML VIAL (*BKC) IV PUSH (10:29)
== END 2023-09-10 13:45 | disposition home or self-care (01) ==
PROVIDERS: Emergency Provider Nurse Practitioner Family; PCP Physician Assistant
DX: S00.81XA Abrasion of other part of head, initial encounter (principal); S76.012A Strain of muscle, fascia and tendon of left hip, initial encounter; I12.9 Hypertensive chronic kidney disease with stage 1 through stage 4 chronic kidney disease, or unspecified chronic kidney disease; N18.30 Chronic kidney disease, stage 3 unspecified; E03.9 Hypothyroidism, unspecified; K21.9 Gastro-esophageal reflux disease without esophagitis; K44.9 Diaphragmatic hernia without obstruction or gangrene; F41.9 Anxiety disorder, unspecified; Z90.49 Acquired absence of other specified parts of digestive tract; Z90.710 Acquired absence of both cervix and uterus; M16.0 Bilateral primary osteoarthritis of hip; W10.9XXA Fall (on) (from) unspecified stairs and steps, initial encounter
CPT/HCPCS: 70450; 70486; 71046; 72192; 73521; 73552; 96374; 96375; 99284; A9270; J1885; J2405

== ENCOUNTER 2023-11-17 07:05 | Outpatient (CLI) | payer MEDICARE, SELFPAY ==
[2023-11-17 07:37] LABS: Basophils Absolute Auto 0.1 K/mm3 (0.0-0.1); Basophils Percent Auto 0.8 % (0.2-1.2); Eosinophils Absolute Auto 0.3 K/mm3 (0-0.3); Eosinophils Percent Auto 3.5 % (0-4.4); Hematocrit 46.1 % (37.0-47.0); Hemoglobin 14.8 g/dL (12.0-15.0); Immature Granulocyte Absolute 0.02 K/mm3 (0.00-0.031); Immature Granulocyte Percent A 0.2 % (0-0.5); Lymphocytes Absolute Auto 3.43 K/mm3 (0.9-3.2); Lymphocytes Percent Auto 37.1 % (18.3-44.2); Mean Corpuscular HGB Conc 32.1 g/dl (32-36); Mean Corpuscular Hemoglobin 30.8 pg (26-34); Mean Corpuscular Volume 95.8 fl (80-100); Mean Platelet Volume 9.8 fl (7.4-10.4); Monocytes Absolute Auto 0.5 K/mm3 (0.1-0.6); Monocytes Percent Auto 5.7 % (2.6-8.5); Neutrophils Absolute Auto 4.9 K/mm3 (1.3-6.7); Neutrophils Percent Auto 52.7 % (45.5-73.1); Platelet Count Result 293 k/mm3 (150-375); Red Blood Count 4.81 M/mm3 (4.2-5.4); Red Cell Distribution Width 13.8 % (11.5-14.5); White Blood Count 9.3 K/mm3 (4.5-10.0)
[2023-11-17 07:52] LABS: Alanine Aminotransferase 30 U/L (6-35); Albumin Level 4.5 g/dL (3.5-5.1); Alkaline Phosphatase 154 U/L (38-126); Anion Gap 5 mmol/L (4-12); Aspartate Amino Transferase 28 U/L (14-36); Bilirubin,Total 0.7 mg/dL (0.2-1.3); Blood Urea Nitrogen 21 mg/dL (7-17); Calcium 9.5 mg/dL (8.4-10.2); Carbon Dioxide 30 mmol/L (22-30); Chloride 106 mmol/L (98-107); Cholesterol 215 mg/dL (0-200); Estimated Glomerular Filt Rate 45; Glucose 106 mg/dL (65-110); HDL Direct 47 mg/dL; Potassium 4.1 mmol/L (3.4-5.0); Sodium 141 mmol/L (137-145); Triglycerides 148 mg/dL (<150)
[2023-11-17 08:03] LABS: LDL Cholesterol Direct 120 mg/dL
[2023-11-17 08:18] LABS: Free T4 Free Thyroxine 1.45 ng/mL (0.78-2.19)
[2023-11-17 08:22] LABS: Thyroid Stimulating Hormone 0.534 uIU/mL (0.465-4.680)
== END 2023-11-17 07:06 | disposition home or self-care (01) ==
PROVIDERS: PCP Physician Assistant; Referring Provider Nurse Practitioner Psychiatric/Mental Health; Visit Provider Physician Assistant
DX: E03.9 Hypothyroidism, unspecified (principal); Z79.899 Other long term (current) drug therapy; Z13.220 Encounter for screening for lipoid disorders
CPT/HCPCS: 36415; 80048; 80061; 80076; 84439; 84443; 85025

== ENCOUNTER 2024-02-22 18:29 | Emergency (ER) | payer MEDICARE, SELFPAY ==
--- NOTE | ~2024-02-22 | CT_ITS ---
CT abdomen pelvis w con Ordering provider: New Mojica MD History: 69 years Female with . abdominal pain . Comparison: None. Technique: CT abdomen and pelvis with IV and without oral contrast. Automated exposure control and it erative reconstruction technique were employed. The dose-length product was 965.19 mGy-cm. 100 mL Omn ipaque 350 was given IV. Findings: VISUALIZED LOWER CHEST: Normal. UPPER ABDOMINAL ORGANS: Liver: Normal. Gallbladder: Status post cholecystectomy. Spleen: 1 cm hypodensity in the spleen anteriorly seen which may be tiny cyst. Stomach/duodenum: Sliding hiatus hernia with herniation of the stomach and the pancreas. Pancreas .: Normal. Adrenals: Normal. Kidneys: hypodensity in the left kidney lower pole most likely a cyst. PELVIC ORGANS: The bladder is underfilled.. BOWEL AND MESENTERY: Colon: No evidence of diverticulitis.. Narrowing seen in the rectum and sigmoid colon most likely spa stic ileus. Follow-up advised. No evidence of appendicitis. Small Bowel: Normal. No obstruction. Peritoneum/mesentery: No free air or free fluid. No mesenteric lymphadenopathy. RETROPERITONEUM: Normal aorta. No retroperitoneal lymphadenopathy. MUSCULOSKELETAL: Superficial soft tissues: The superficial soft tissues are normal. Bones: Multilevel facet joint disease. Otherwise, Normal spine. Healing fracture in the left inferior pubic ramus. IMPRESSION: 1. Large sliding hiatus hernia with herniation of the stomach and the duodenum. 2. Healing fracture in the left inferior pubic ramus. 3. Hypodensity in the spleen. Most likely a small cyst. 4. Areas of narrowing in the rectum and sigmoid colon most likely spastic. Follow-up advised. Reviewed, dictated and finalized at location A. IMPRESSION: 1. Large sliding hiatus hernia with herniation of the stomach and the duodenum . 2. Healing fracture in the left inferior pubic ramus. 3. Hypodensity in the spleen. Most likely a small cyst. 4. Areas of narrowing in the rectum and sigmoid colon most likely spastic. Fol low-up advised.
[2024-02-22 19:10] LABS: Basophils Absolute Auto 0.1 K/mm3 (0.0-0.1); Basophils Percent Auto 0.7 % (0.2-1.2); Eosinophils Absolute Auto 0.1 K/mm3 (0-0.3); Eosinophils Percent Auto 0.8 % (0-4.4); Hematocrit 44.6 % (37.0-47.0); Hemoglobin 15.1 g/dL (12.0-15.0); Immature Granulocyte Absolute 0.04 K/mm3 (0.00-0.031); Immature Granulocyte Percent A 0.4 % (0-0.5); Lymphocytes Absolute Auto 2.65 K/mm3 (0.9-3.2); Lymphocytes Percent Auto 27.5 % (18.3-44.2); Mean Corpuscular HGB Conc 33.9 g/dl (32-36); Mean Corpuscular Hemoglobin 31.5 pg (26-34); Mean Corpuscular Volume 93.1 fl (80-100); Mean Platelet Volume 9.7 fl (7.4-10.4); Monocytes Absolute Auto 0.5 K/mm3 (0.1-0.6); Monocytes Percent Auto 5.4 % (2.6-8.5); Neutrophils Absolute Auto 6.3 K/mm3 (1.3-6.7); Neutrophils Percent Auto 65.2 % (45.5-73.1); Platelet Count Result 283 k/mm3 (150-375); Red Blood Count 4.79 M/mm3 (4.2-5.4); Red Cell Distribution Width 13.6 % (11.5-14.5); White Blood Count 9.6 K/mm3 (4.5-10.0)
[2024-02-22 19:18] VITALS: BP 144/96; PULSE 112; RESP 19; TEMP 36.8; O2SAT 98
[2024-02-22 19:24] LABS: Alanine Aminotransferase 20 U/L (6-35); Albumin Level 4.4 g/dL (3.5-5.1); Alkaline Phosphatase 130 U/L (38-126); Anion Gap 11 mmol/L (4-12); Aspartate Amino Transferase 27 U/L (14-36); Bilirubin,Total 0.5 mg/dL (0.2-1.3); Blood Urea Nitrogen 16 mg/dL (7-17); Calcium 9.8 mg/dL (8.4-10.2); Carbon Dioxide 22 mmol/L (22-30); Chloride 106 mmol/L (98-107); Estimated CRCL calculation 39 ml/min; Estimated Glomerular Filt Rate 41; Glucose 126 mg/dL (65-110); Lipase 91 U/L (23-300); Sodium 139 mmol/L (137-145)
[2024-02-22 19:24] LABS: BEDSIDEPREGUCG Negative (Negative)
[2024-02-22 20:16] LABS: Add Urine Microscopic? YES; Appearance Urine Cloudy (Clear); Bacteria Urine Rare /hpf; Bilirubin Urine 1+ (Negative); Blood Urine Negative (Negative); Calcium Oxalate Crystals Urine Present /hpf; Color Urine Dark Yellow (Yellow); Glucose Urine UA Negative (Negative); Ketones Urine 1+ mg/dL (Negative); Leukocyte Esterase Ur Negative LEU/UL (Negative); Nitrate Urine Negative (Negative); Protein Urine 1+ mg/dL (Negative); Specific Grav Ur 1.036 (1.001-1.035); Squamous Epithelial Cell Urine Moderate /hpf (Few); pH Urine 5.5 (5.0-9.0)
[2024-02-22] MEDS: SODIUM CHLORIDE 0.9% IV 1,000 ML 999 ML IV CONT (20:34)
[2024-02-22 21:30] VITALS: BP 134/70; PULSE 76; RESP 17; TEMP 37.1; O2SAT 98
--- NOTE | 2024-02-22 22:13 | ED.ABDPAIN ---
HPI - Abdominal Pain General Chief Complaint: Abdominal Pain Stated Complaint: lower abd discomfort Time Seen by Provider: 02/22/24 19:49 History of Present Illness HPI narrative: Patient is a 61-year-old female who presents emergency department with chief complaint abdominal discomfort. The patient reports she believes she may have a UTI or diverticulitis patient states she did a home urinalysis that did show evidence of UTI. The patient reports no fever reports he feels a little run down Related Data Home Medications Medication Instructions Recorded Confirmed alprazolam 0.5 mg tablet 0.5 mg PO Q6H 08/23/21 09/10/23 levothyroxine 88 mcg tablet 88 mcg PO DAILY 08/23/21 09/10/23 (Euthyrox) lisinopril 30 mg tablet 30 mg PO DAILY 08/23/21 09/10/23 omeprazole 20 mg capsule,delayed 20 mg PO DAILY 04/14/23 09/10/23 release Allergies Allergy/AdvReac Type Severity Reaction Status Date / Time sulfamethoxazole Allergy Swelling Verified 09/10/23 09:02 [From Bactrim] of Lip/Tongue/Throat trimethoprim [From Bactrim] Allergy Swelling Verified 09/10/23 09:02 of Lip/Tongue/Throat Review of Systems Review of Systems: A 10 system review of systems was completed on the patient and is negative except for what is stated in the HPI. Nursing and ancillary documentation was reviewed. [facility] Past Medical History Medical History Anxiety Chronic kidney disease, stage 3 Baseline creatinine is between 1.0 and 1.10. GFR ranges between 50 and 55. Diverticulitis Gastroesophageal reflux disease Hiatal hernia Containing nearly the entire stomach and part of the pancreas. Hypertension Hypothyroidism Surgical History Surgical History History of cholecystectomy History of colonoscopy History of hysterectomy Family History Family History Mother Hypertension Sibling Bone cancer Social History Social History Social History: Surrogate medical decision maker: duane Aviles Code status: Full code. Smoking status: Never smoker Alcohol intake: never Substance use: never Substance use type: does not use Do You Feel Safe in your Home?: Yes Lack of Transportation: No Lack of Food: Never True Current Housing: I Have Housing Concerned About Future Housing: No Difficulty Paying Gas/Electric Bills: No Difficulty Paying for Meds: No Currently Unemployed: No Education: Grade School Difficulty w/ Childcare or Family Care: No Additional living arrangements comments: The patient lives in her own home in [place]. Additional occupation/education comments: Retired. Spiritual care concerns: No Exam Narrative: GENERAL: Well-appearing, well-nourished, and in no acute distress. HEAD: Normocephalic, atraumatic. EYES: PERRLA and EOMI. ENT: Nares clear, no rhinorrhea or epistaxis. Mucous membranes moist. NECK: Supple. CHEST: Clear to auscultation. No respiratory distress. HEART: Regular rate and rhythm. No murmur heard. Normal peripheral pulses. ABDOMEN: Soft, suprapubic tenderness, nondistended, normal active bowel sounds. EXTREMITIES: Normal range of motion. No edema. SKIN: Warm, dry, no rash. NEURO: No focal deficits. Alert and oriented x3. PSYCH: Normal mood and affect. Course Vital Signs Vital signs: Vital Signs Temperature 36.8 C 02/22/24 19:18 Pulse Rate 112 H 02/22/24 19:18 Respiratory Rate 02/22/24 19:18 Blood Pressure 144/96 H 02/22/24 19:18 Pulse Oximetry 98 02/22/24 19:18 Temperature 36.8 C 02/22/24 19:18 Pulse Rate 112 H 02/22/24 19:18 Respiratory Rate 02/22/24 19:18 Blood Pressure 144/96 H 02/22/24 19:18 Pulse Oximetry 98 02/22/24 19:18 MDM - Abd
[2024-02-22] MEDS: CEPHALEXIN 500 MG CAPSULE PO (22:27)
[2024-02-22 22:30] VITALS: BP 142/96; PULSE 99; RESP 16; TEMP 36.8; O2SAT 99
== END 2024-02-22 22:31 | disposition home or self-care (01) ==
PROVIDERS: Physician Assistant; Emergency Provider Emergency Medicine; PCP Physician Assistant
DX: N39.0 Urinary tract infection, site not specified (principal); R10.30 Lower abdominal pain, unspecified; K44.9 Diaphragmatic hernia without obstruction or gangrene; F41.9 Anxiety disorder, unspecified; I12.9 Hypertensive chronic kidney disease with stage 1 through stage 4 chronic kidney disease, or unspecified chronic kidney disease; N18.30 Chronic kidney disease, stage 3 unspecified; E03.9 Hypothyroidism, unspecified; K21.9 Gastro-esophageal reflux disease without esophagitis
CPT/HCPCS: 36415; 74177; 80053; 81001; 81025; 83690; 85025; 87086; 87088; 99284; A9270; J7030; Q9967

== ENCOUNTER 2024-03-16 10:43 | Emergency (ER) | payer MEDICARE, SELFPAY ==
--- NOTE | ~2024-03-16 | CT_ITS ---
EXAMINATION: CT abdomen pelvis w con DATE: 03/16/2024 13:47 INDICATION: Rectal bleeding. TECHNIQUE: Computed tomography (CT) of the abdomen and pelvis was performed with 100 mL Omnipaque 350 intravenous contrast. Automated exposure control and iterative reconstruction technique were employe d. The dose-length product was 933.54 mGy-cm. COMPARISON: CT abdomen and pelvis 02/22/2024 FINDINGS: The visualized portions of the lung bases demonstrate mild atelectasis. There is a large sl iding hiatal hernia that contains most of the stomach and pancreas. No pleural effusion. The heart si ze is normal. No pericardial effusion. There is an 8 mm cyst in the liver. There are changes of cornelius cystectomy. There is a 5 mm hypodense mass in the spleen, likely a benign mass such as a cyst or gran ulomatous disease. The adrenal glands and right kidney are normal. There is a 7 mm cyst in left kidne y. There is diverticulosis of the colon without evidence of diverticulitis. There are no dilated loop s of bowel. The appendix is normal. There are no pathologically enlarged lymph nodes. There is no [place] intraperitoneal fluid. There is mild thoracic and lumbar spondylosis. There is mild chronic anterio r wedging of multiple lower thoracic vertebral bodies. There is an old healed fracture of left inferi or pubic ramus. IMPRESSION: 1. Large sliding hiatal hernia. Reviewed, dictated and finalized at location A.
[2024-03-16 10:45] VITALS: BP 136/86; PULSE 115; RESP 17; TEMP 36.4; O2SAT 96
--- NOTE | 2024-03-16 12:48 | ED.GIBLEED ---
HPI - GI Bleed General Chief complaint: GI Bleed <ROSS Hope Last Filed: 03/16/24 12:54> Stated complaint: blood in stool <ROSS Hope Last Filed: 03/16/24 12:54> Time Seen by Provider: 03/16/24 12:48 <ROSS Hope Last Filed: 03/16/24 12:54> Focused HPI: Patient is a 69 y/o female who presents to the ED with c/o rectal bleeding. Patient reports she Had a bowel movement this morning and noticed bright red blood with wiping and mixed in with the stool. Denies any pain associated with the bowel movement or straining. She does note she had several hours of diarrhea around 6 days ago, but denied any blood at that time. She had not had a bowel movement since that time until this morning. She reports history of diverticulitis, last episode in Jul of this year. Last colonoscopy was 5 years ago. Denies known history of hemorrhoids. Denies abdominal pain, N/V, dizziness, lightheadedness. She is not on any blood thinners. GENERAL: Mildly anxious-appearing, well-nourished, and in no acute distress. HEAD: Normocephalic, atraumatic. CHEST: Clear to auscultation. ?No respiratory distress. HEART: Regular rate and rhythm.? ABD: No significant tenderness throughout abdomen. Normoactive bowel sounds. NEURO: ?Alert and oriented x3. Patient screened in triage and initial orders placed.? ?Additional care and disposition to be based upon?diagnostic testing and treatment. <ROSS Hope Last Filed: 03/16/24 12:54> Source: patient <ROSS Hope Last Filed: 03/16/24 12:54> Mode of arrival: ambulatory <ROSS Hope Last Filed: 03/16/24 12:54> Limitations: no limitations <ROSS Hope Last Filed: 03/16/24 12:54> History of Present Illness HPI Narrative: 69-year-old female presenting with rectal bleeding. States that several days ago she had profuse diarrhea. She took about 6 Imodium and then went 5 days without having a bowel movement. States that she had a bowel movement yesterday and did have some straining. States that she often has episodes of intermittent diarrhea followed by constipation and straining. Today she had another bowel movement and noticed bright red blood in the toilet. Became concerned as she has had diverticulitis in the past. She denies any abdominal pain. No nausea or vomiting. No further complaints. <Adriana Acosta MD - Last Filed: 03/16/24 16:48> Related Data Home medications: Home Medications Medication Instructions Recorded Confirmed alprazolam 0.5 mg tablet 0.5 mg PO Q6H 08/23/21 09/10/23 levothyroxine 88 mcg tablet 88 mcg PO DAILY 08/23/21 09/10/23 (Euthyrox) lisinopril 30 mg tablet 30 mg PO DAILY 08/23/21 09/10/23 omeprazole 20 mg capsule,delayed 20 mg PO DAILY 04/14/23 09/10/23 release <ROSS Hope Last Filed: 03/16/24 12:54> Allergies/Adverse reactions: Allergies Allergy/AdvReac Type Severity Reaction Status Date / Time sulfamethoxazole Allergy Swelling Verified 03/16/24 10:49 [From Bactrim] of Lip/Tongue/Throat trimethoprim [From Bactrim] Allergy Swelling Verified 03/16/24 10:49 of Lip/Tongue/Throat <Sally Watson PA-C - Last Filed: 03/16/24 12:54> Review of Systems Review of Systems: All systems reviewed & are unremarkable except as noted in HPI and below <Adriana Acosta MD - Last Filed: 03/16/24 16:48> [facility] Past Medical History Medical History: Medical History Anxiety Chronic kidney disease, stage 3 Baseline creatinine is between 1.0 and 1.10. GFR ranges between 50 and 55. Diverticulitis Gastroesophageal reflux disease Hiatal hernia Containing nearly the entire stomach and part of the pancreas. Hypertension Hypothyroidism <Sally Watson PA-C - Last Filed: 03/16/24 12:54> Nguyen
[2024-03-16 12:52] LABS: Basophils Absolute Auto 0.1 K/mm3 (0.0-0.1); Basophils Percent Auto 0.6 % (0.2-1.2); Eosinophils Absolute Auto 0.1 K/mm3 (0-0.3); Eosinophils Percent Auto 0.6 % (0-4.4); Hematocrit 47.7 % (37.0-47.0); Hemoglobin 15.6 g/dL (12.0-15.0); Immature Granulocyte Absolute 0.06 K/mm3 (0.00-0.031); Immature Granulocyte Percent A 0.4 % (0-0.5); Lymphocytes Absolute Auto 1.76 K/mm3 (0.9-3.2); Lymphocytes Percent Auto 12.6 % (18.3-44.2); Mean Corpuscular HGB Conc 32.7 g/dl (32-36); Mean Corpuscular Hemoglobin 31.3 pg (26-34); Mean Corpuscular Volume 95.8 fl (80-100); Mean Platelet Volume 10.2 fl (7.4-10.4); Monocytes Absolute Auto 0.5 K/mm3 (0.1-0.6); Monocytes Percent Auto 3.6 % (2.6-8.5); Neutrophils Absolute Auto 11.5 K/mm3 (1.3-6.7); Neutrophils Percent Auto 82.2 % (45.5-73.1); Platelet Count Result 290 k/mm3 (150-375); Red Blood Count 4.98 M/mm3 (4.2-5.4); Red Cell Distribution Width 13.8 % (11.5-14.5)
[2024-03-16 13:02] LABS: Alanine Aminotransferase 23 U/L (6-35); Albumin Level 4.9 g/dL (3.5-5.1); Alkaline Phosphatase 126 U/L (38-126); Anion Gap 11 mmol/L (4-12); Aspartate Amino Transferase 28 U/L (14-36); Bilirubin,Total 0.5 mg/dL (0.2-1.3); Blood Urea Nitrogen 38 mg/dL (7-17); Carbon Dioxide 26 mmol/L (22-30); Chloride 105 mmol/L (98-107); Estimated CRCL calculation 34 ml/min; Estimated Glomerular Filt Rate 30; Glucose 115 mg/dL (65-110); Potassium 5.3 mmol/L (3.4-5.0); Sodium 142 mmol/L (137-145)
[2024-03-16 13:05] LABS: Prothrombin Time 13.3 Seconds (11.1-14.7)
[2024-03-16 13:06] LABS: Partial Thromboplastin Time 26.7 Seconds (22.3-36.8)
[2024-03-16 13:31] LABS: Add Urine Microscopic? YES; Appearance Urine Cloudy (Clear); Bacteria Urine Rare /hpf; Bilirubin Urine Negative (Negative); Blood Urine Negative (Negative); Color Urine Yellow (Yellow); Glucose Urine UA Negative (Negative); Ketones Urine Trace mg/dL (Negative); Leukocyte Esterase Ur 1+ LEU/UL (Negative); Nitrate Urine Negative (Negative); Non Pathogenic Casts 0-2; Protein Urine Negative (Negative); RBC Urine 0-2 /hpf (0-2); Specific Grav Ur 1.024 (1.001-1.035); Squamous Epithelial Cell Urine Moderate /hpf (Few); Urobilinogen Urine 0.2 mg/dL (<2.0); pH Urine 5.5 (5.0-9.0)
[2024-03-16 14:26] VITALS: BP 160/88; PULSE 92; RESP 18; O2SAT 98
[2024-03-16] MEDS: SODIUM CHLORIDE 0.9% IV 1,000 ML 999 ML IV CONT (14:27)
[2024-03-16 17:02] VITALS: BP 146/73; PULSE 81; RESP 16; O2SAT 98
== END 2024-03-16 17:04 | disposition home or self-care (01) ==
PROVIDERS: Emergency Medicine; Physician Assistant; Emergency Provider Emergency Medicine; PCP Physician Assistant
DX: K64.9 Unspecified hemorrhoids (principal); K92.1 Melena; K59.00 Constipation, unspecified; I12.9 Hypertensive chronic kidney disease with stage 1 through stage 4 chronic kidney disease, or unspecified chronic kidney disease; N18.30 Chronic kidney disease, stage 3 unspecified; E03.9 Hypothyroidism, unspecified; K21.9 Gastro-esophageal reflux disease without esophagitis; K44.9 Diaphragmatic hernia without obstruction or gangrene; F41.9 Anxiety disorder, unspecified; Z79.899 Other long term (current) drug therapy; Z90.49 Acquired absence of other specified parts of digestive tract; Z90.2 Acquired absence of lung [part of]; Z90.710 Acquired absence of both cervix and uterus
CPT/HCPCS: 36415; 74177; 80053; 81001; 85025; 85610; 85730; 86850; 86900; 86901; 87086; 96360; 99284; J7030; Q9967

== ENCOUNTER 2024-04-29 17:33 | Emergency (ER) | payer MEDICARE, SELFPAY ==
--- NOTE | ~2024-04-29 | CT_ITS ---
CT of the Abdomen and Pelvis: Indication: Abdominal pain Technique: 2.5 mm axial scans were obtained through the abdomen and pelvis following intravenous adm inistration of 100 cc of Omnipaque 350. Dose reduction technique was used on this scan by utilizing a utomated exposure control and iterative reconstruction technique. The dose-length product (DLP) was 6 00.99 mGy-cm. COMPARISON: 03/16/2024 Findings: Scans through the lung bases demonstrates stable extremely large hiatal hernia, which cont ains the entire stomach, the pancreatic body and tail, and mesenteric fat.. The liver, spleen, pancreas, adrenals and kidneys are within normal limits. Cholecystectomy clips are present. No evidence of aortic aneurysm. No lymphadenopathy. No bowel obstruction or bowel wall thickening. There is no evidence to suggest acute appendicitis. Images through the pelvis were performed. Urinary bladder unremarkable. No pelvic mass seen. No ascit es. Impression: No acute abnormality. Stable very large hiatal hernia, as detailed above. Reviewed, dictated and finalized at [facility]. [employer] Impression: No acute abnormality. Stable very large hiatal hernia, as detailed above.
[2024-04-29 17:56] VITALS: BP 174/106; PULSE 101; RESP 16; TEMP 37; O2SAT 100
[2024-04-29 22:05] LABS: Add Urine Microscopic? YES; Appearance Urine Clear (Clear); Bacteria Urine Rare /hpf; Bilirubin Urine Negative (Negative); Blood Urine Negative (Negative); Color Urine Yellow (Yellow); Glucose Urine UA Negative (Negative); Ketones Urine 1+ mg/dL (Negative); Leukocyte Esterase Ur 1+ LEU/UL (Negative); Nitrate Urine Negative (Negative); Non Pathogenic Casts 0-2; Protein Urine Negative (Negative); RBC Urine 0-2 /hpf (0-2); Specific Grav Ur 1.019 (1.001-1.035); Squamous Epithelial Cell Urine Few /hpf (Few); Urobilinogen Urine 0.2 mg/dL (<2.0)
[2024-04-29 23:38] LABS: Basophils Absolute Auto 0.1 K/mm3 (0.0-0.1); Basophils Percent Auto 0.5 % (0.2-1.2); Eosinophils Absolute Auto 0.1 K/mm3 (0-0.3); Eosinophils Percent Auto 0.5 % (0-4.4); Hematocrit 45.5 % (37.0-47.0); Hemoglobin 15.3 g/dL (12.0-15.0); Immature Granulocyte Absolute 0.03 K/mm3 (0.00-0.031); Immature Granulocyte Percent A 0.3 % (0-0.5); Lymphocytes Absolute Auto 1.97 K/mm3 (0.9-3.2); Lymphocytes Percent Auto 17.9 % (18.3-44.2); Mean Corpuscular HGB Conc 33.6 g/dl (32-36); Mean Corpuscular Hemoglobin 31.3 pg (26-34); Mean Platelet Volume 9.6 fl (7.4-10.4); Monocytes Absolute Auto 0.6 K/mm3 (0.1-0.6); Monocytes Percent Auto 5.4 % (2.6-8.5); Neutrophils Absolute Auto 8.3 K/mm3 (1.3-6.7); Neutrophils Percent Auto 75.4 % (45.5-73.1); Platelet Count Result 280 k/mm3 (150-375); Red Blood Count 4.89 M/mm3 (4.2-5.4); Red Cell Distribution Width 13.7 % (11.5-14.5)
[2024-04-29 23:42] LABS: BEDSIDEPREGUCG Negative (Negative)
[2024-04-29 23:57] LABS: Alanine Aminotransferase 28 U/L (6-35); Albumin Level 4.4 g/dL (3.5-5.1); Alkaline Phosphatase 127 U/L (38-126); Anion Gap 7 mmol/L (4-12); Aspartate Amino Transferase 32 U/L (14-36); Bilirubin,Total 0.7 mg/dL (0.2-1.3); Blood Urea Nitrogen 27 mg/dL (7-17); Calcium 9.9 mg/dL (8.4-10.2); Carbon Dioxide 28 mmol/L (22-30); Chloride 103 mmol/L (98-107); Estimated CRCL calculation 43 ml/min; Estimated Glomerular Filt Rate 37; Glucose 112 mg/dL (65-110); Lipase 80 U/L (23-300); Potassium 4.4 mmol/L (3.4-5.0); Sodium 138 mmol/L (137-145)
[2024-04-30] MEDS: ONDANSETRON INJ 4 MG/2 ML VIAL IV PUSH (00:10)
[2024-04-30] MEDS: SODIUM CHLORIDE 0.9% IV 1,000 ML 999 ML IV CONT (00:10)
[2024-04-30 00:11] VITALS: BP 138/88; PULSE 88; RESP 15; O2SAT 96
--- NOTE | 2024-04-30 00:37 | ED_ITS ---
HPI - General Adult General Chief complaint: Weakness Stated complaint: I feel weak and have a strong odor to urine Time Seen by Provider: 04/29/24 23:58 History of Present Illness HPI narrative: Patient is a 69-year-old female who presents ER with weakness. She is concerned that she may have diverticulitis or UTI. She has been having pain in her lower abdomen when she urinates or increases pressure. Foul-smelling urine but no dysuria. No diarrhea. Denies fevers or chills or sweats. Has increased weakness associated with this. Ongoing over last 3-4 days. Mild nausea without vomiting. No alleviating factors. Related Data Home Medications Medication Instructions Recorded Confirmed alprazolam 0.5 mg tablet 0.5 mg PO Q6H 08/23/21 04/01/24 levothyroxine 88 mcg tablet 88 mcg PO DAILY 08/23/21 04/01/24 (Euthyrox) lisinopril 30 mg tablet 30 mg PO DAILY 08/23/21 04/01/24 omeprazole 20 mg capsule,delayed 20 mg PO DAILY 04/14/23 04/01/24 release Allergies Allergy/AdvReac Type Severity Reaction Status Date / Time sulfamethoxazole Allergy Swelling Verified 04/29/24 17:58 [From Bactrim] of Lip/Tongue/Throat trimethoprim [From Bactrim] Allergy Swelling Verified 04/29/24 17:58 of Lip/Tongue/Throat Review of Systems Review of Systems: All systems reviewed & are unremarkable except as noted in HPI and below Constitutional: Constitutional: Reports no additional constitutional complaints ENT: Reports system reviewed and no additional complaints, except as documented Cardiovascular: Cardiovascular: Reports no additional cardiovascular complaints Respiratory: Respiratory: Reports no additional respiratory complaints Gastrointestinal: Gastrointestinal: Reports abdominal pain, Denies constipation, Denies diarrhea and Reports nausea Genitourinary: Genitourinary: Denies nocturia, Denies dysuria, Denies pelvic pain and Denies flank pain [facility] Past Medical History Medical History (Updated 04/30/24 @ 02:13 by Fernando Bravo MD) Anxiety Chronic kidney disease, stage 3 Baseline creatinine is between 1.0 and 1.10. GFR ranges between 50 and 55. Depression Diverticulitis Gastroesophageal reflux disease Hiatal hernia Containing nearly the entire stomach and part of the pancreas. Hypertension Hypothyroidism Surgical History Surgical History History of cholecystectomy History of colonoscopy History of hysterectomy Family History Family History Mother Hypertension Sibling Bone cancer Social History Social History Social History: Surrogate medical decision maker: Lizeth Pena, sibling Code status: Full code. Smoking status: Never smoker Alcohol intake: never Substance use: never Substance use type: does not use Do You Feel Safe in your Home?: Yes Lack of Transportation: No Lack of Food: Never True Current Housing: I Have Housing Concerned About Future Housing: No Difficulty Paying Gas/Electric Bills: No Difficulty Paying for Meds: No Currently Unemployed: No Education: Grade School Difficulty w/ Childcare or Family Care: No Additional living arrangements comments: The patient lives in her own home in [place]. Additional occupation/education comments: Retired. Spiritual care concerns: No Exam Narrative: GENERAL: Well-appearing, well-nourished, and in no acute distress. HEAD: Normocephalic, atraumatic. ENT: Mucous membranes moist. CHEST: Clear to auscultation. No respiratory distress. HEART: Regular rate and rhythm. Normal peripheral pulses. ABDOMEN: Soft, tender to palpation left lower quadrant without guarding, nondistended. EXTREMITIES: Normal range of motion. No edema. SKIN: Warm, dry, no rash. NEURO: Alert and oriented x3. PSYCH: Normal mood and affect. Course Course Emergency Course: Patient resting comfortably. Informed results. Labs indicating dehydration. Patient given some IV fluid and antiemetics. Urinalysis very borderline for infection but given symptoms we will treat. Vital Signs Vital signs: Vital Signs Temperature 98.6 F 04/29/24 17:56 Pulse Rate 101 H 04/29/24 17:56 Respiratory Rate 16 04/29/24 17:56 Blood Pressure 174/106 H 04/29/24 17:56 Pulse Oximetry 100 04/29/24 17:56 Temperature 98.6 F 04/29/24 17:56 Pulse Rate 88 04/30/24 00:11 Respiratory Rate 15 04/30/24 00:11 Blood Pressure 138/88 04/30/24 00:11 Pulse Oximetry 96 04/30/24 00:11 Medical Decision Making Vital Signs Vital Signs: Vital Signs Temperature 98.6 F 04/29/24 17:56 Pulse Rate 101 H 04/29/24 17:56 Respiratory Rate 16 04/29/24 17:56 Blood Pressure 174/106 H 04/29/24 17:56 Pulse Oximetry 100 04/29/24 17:56 Temperature 98.6 F 04/29/24 17:56 Pulse Rate 88 04/30/24 00:11 Respiratory Rate 15 04/30/24 00:11 Blood Pressure 138/88 04/30/24 00:11 Pulse Oximetry 96 04/30/24 00:11 Lab Data 04/29/24 23:33 04/29/24 23:33 Labs: Lab Results 04/29/24 04/29/24 04/29/24 Range/Units 21:50 23:33 23:41 WBC 11.0 H (4.5-10.0) K/mm3 RBC 4.89 (4.2-5.4) M/mm3 Hgb 15.3 H (12.0-15.0) g/dL Hct 45.5 (37.0-47.0) % MCV 93.0 (80-100) fl MCH 31.3 (26-34) pg MCHC 33.6 (32-36) g/dl RDW 13.7 (11.5-14.5) % Plt Count 280 (150-375) k/mm3 MPV 9.6 (7.4-10.4) fl Immature Gran % (Auto) 0.3 (0-0.5) % Neut % (Auto) 75.4 H (45.5-73.1) % Lymph % (Auto) 17.9 L (18.3-44.2) % [place] % (Auto) 5.4 (2.6-8.5) % Eos % (Auto) 0.5 (0-4.4) % Baso % (Auto) 0.5 (0.2-1.2) % Lymph # (Auto) 1.97 (0.9-3.2) K/mm3 [place] # (Auto) 0.6 (0.1-0.6) K/mm3 Eos # (Auto) 0.1 (0-0.3) K/mm3 Baso # (Auto) 0.1 (0.0-0.1) K/mm3 Abs Immat Gran (auto) 0.03 (0.00-0.031) K/mm3 Absolute Neuts (auto) 8.3 H (1.3-6.7) K/mm3 Absolute Nucleated RBC 0.000 (0.0-0.012) K/mm3 Nucleated RBC % 0.0 (0.0-0.2) % Sodium 138 (137-145) mmol/L Potassium 4.4 (3.4-5.0) mmol/L Chloride 103 (98-107) mmol/L Carbon Dioxide 28 (22-30) mmol/L Anion Gap 7 (4-12) mmol/L BUN 27 H D (7-17) mg/dL Creatinine 1.40 H (0.7-1.0) mg/dL Estim Creat Clear Calc 43 ml/min Estimated GFR 37 L (59 - ) Glucose 112 H (65-110) mg/dL Calcium 9.9 (8.4-10.2) mg/dL Total Bilirubin 0.7 (0.2-1.3) mg/dL AST 32 (14-36) U/L ALT 28 (6-35) U/L Alkaline Phosphatase 127 H (38-126) U/L Total Protein 8.0 (6.3-8.2) g/dL Albumin 4.4 (3.5-5.1) g/dL Lipase 80 (23-300) U/L Urine Color Yellow (Yellow) Urine Appearance Clear (Clear) Urine pH 5.0 (5.0-9.0) Ur Specific [place] 1.019 (1.001-1.035) Urine Protein Negative (Negative) mg/dL Urine Glucose (UA) Negative (Negative) mg/dL Urine Ketones 1+ H (Negative) mg/dL Ur Blood (Man) Negative (Negative) Urine Nitrate Negative (Negative) Urine Bilirubin Negative (Negative) Urine Urobilinogen 0.2 (<2.0) mg/dL Leukocyte Esterase Rfl 1+ H (Negative) HAILEE/UL Urine RBC 0-2 (0-2) /hpf Urine WBC 11-20 H (0-3) /hpf Ur Squamous Epith Cells Few (Few) /hpf Urine Bacteria Rare /hpf Urine Casts 0-2 POC Urine HCG, Qual Negative (Negative) Imaging Data Radiologist's impression: CT abdomen pelvis: No acute intra-abdominal abnormality. Large hiatal hernia containing stomach and pancreas. Discharge Plan Discharge Clinical Impression: Acute UTI, Dehydration Patient Disposition: Home, Self-Care Condition: Stable Instructions: Antibiotic Form, Urinary Tract Infection in Women (ED) Additional Instructions: You should return to the emergency department if you develop severe nausea and vomiting and are unable to keep liquids down, if you develop severe back/flank or stomach pain, or if your symptoms are not clearly improving at home. Prescriptions: New cephalexin 500 mg capsule 500 mg PO Q12H Qty: 10 0RF No Action fluticasone propionate [Flonase Allergy Relief] 50 mcg/actuation spray,suspension 2 spray NASAL DAILY 14 Days Qty: 15.8 0RF Rx Instructions: administer into each nostril amoxicillin-pot clavulanate 875-125 mg tablet 1 tablet PO Q12H 10 Days Qty: 20 0RF levothyroxine [Euthyrox] 88 mcg tablet 88 mcg PO DAILY lisinopril 30 mg tablet 30 mg PO DAILY alprazolam 0.5 mg tablet 0.5 mg PO Q6H Rx Instructions: 0600,1200,1600,2000 phenazopyridine [Pyridium] 200 mg tablet 200 mg PO TID PRN (Reason: pain) Qty: 6 0RF cephalexin 500 mg capsule 500 mg PO Q12H 7 Days Qty: 14 0RF omeprazole 20 mg capsule,delayed release(DR/EC) 20 mg PO DAILY naproxen 500 mg tablet 500 mg PO BID Qty: 14 0RF Follow-up/Referrals: Constantino,ROSS Arce [Primary Care Provider] - 1 Week
[2024-04-30 02:39] VITALS: BP 140/86; PULSE 81; RESP 15; O2SAT 100
== END 2024-04-30 02:40 | disposition home or self-care (01) ==
PROVIDERS: Emergency Medicine; Emergency Provider Emergency Medicine; PCP Physician Assistant
DX: N39.0 Urinary tract infection, site not specified (principal); E86.0 Dehydration; I12.9 Hypertensive chronic kidney disease with stage 1 through stage 4 chronic kidney disease, or unspecified chronic kidney disease; N18.30 Chronic kidney disease, stage 3 unspecified; K21.9 Gastro-esophageal reflux disease without esophagitis; K44.9 Diaphragmatic hernia without obstruction or gangrene; E03.9 Hypothyroidism, unspecified; F41.9 Anxiety disorder, unspecified; F32.A Depression, unspecified; Z90.49 Acquired absence of other specified parts of digestive tract; Z90.710 Acquired absence of both cervix and uterus; Z79.899 Other long term (current) drug therapy
CPT/HCPCS: 36415; 74177; 80053; 81001; 81025; 83690; 85025; 87086; 96361; 96374; 99284; J2405; J7030; Q9967

== ENCOUNTER 2024-06-01 09:49 | Emergency (ER) | payer MEDICARE, SELFPAY ==
[2024-06-01 09:51] VITALS: BP 118/71; PULSE 118; RESP 19; TEMP 36.4; O2SAT 98
[2024-06-01 11:01] LABS: Basophils Absolute Auto 0.1 K/mm3 (0.0-0.1); Basophils Percent Auto 0.5 % (0.2-1.2); Eosinophils Percent Auto 0.4 % (0-4.4); Hematocrit 47.7 % (37.0-47.0); Hemoglobin 15.3 g/dL (12.0-15.0); Immature Granulocyte Absolute 0.04 K/mm3 (0.00-0.031); Immature Granulocyte Percent A 0.4 % (0-0.5); Lymphocytes Absolute Auto 1.37 K/mm3 (0.9-3.2); Lymphocytes Percent Auto 12.1 % (18.3-44.2); Mean Corpuscular HGB Conc 32.1 g/dl (32-36); Mean Corpuscular Hemoglobin 30.1 pg (26-34); Mean Corpuscular Volume 93.7 fl (80-100); Mean Platelet Volume 9.9 fl (7.4-10.4); Monocytes Absolute Auto 0.5 K/mm3 (0.1-0.6); Neutrophils Absolute Auto 9.4 K/mm3 (1.3-6.7); Neutrophils Percent Auto 82.6 % (45.5-73.1); Platelet Count Result 258 k/mm3 (150-375); Red Blood Count 5.09 M/mm3 (4.2-5.4); Red Cell Distribution Width 13.6 % (11.5-14.5); White Blood Count 11.4 K/mm3 (4.5-10.0)
[2024-06-01 11:13] VITALS: BP 143/81; PULSE 100; RESP 16; O2SAT 97
[2024-06-01] MEDS: LACTATED RINGERS 1,000 ML 999 ML IV CONT (11:14)
[2024-06-01] MEDS: diazePAM INJ (*CRX) 10 MG/2 ML SYRINGE 5 MG IV PUSH (11:15)
[2024-06-01 11:16] LABS: Alanine Aminotransferase 50 U/L (6-35); Albumin Level 4.4 g/dL (3.5-5.1); Alkaline Phosphatase 122 U/L (38-126); Anion Gap 6 mmol/L (4-12); Aspartate Amino Transferase 50 U/L (14-36); Bilirubin,Total 0.6 mg/dL (0.2-1.3); Blood Urea Nitrogen 23 mg/dL (7-17); Calcium 9.6 mg/dL (8.4-10.2); Carbon Dioxide 27 mmol/L (22-30); Chloride 105 mmol/L (98-107); Estimated Glomerular Filt Rate 32; Glucose 127 mg/dL (65-110); Potassium 4.2 mmol/L (3.4-5.0); Sodium 138 mmol/L (137-145)
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
--- NOTE | 2024-06-01 12:19 | PC.NURSE ---
Pt. anxiety reassessed. Pt. states it is a little better. Pt. continues to be tearful.
[2024-06-01 13:30] VITALS: BP 144/78; PULSE 86; RESP 16; O2SAT 100
--- OUTSIDE RECORDS SUMMARY | 2024-06-08 18:16 | XMS_ITS ---
Author Organization [facility] [employer] Address [address] [place] [address] Care Team Providers Care President And Chief Commercial Officer Name Role Phone Yazmin Kelley Primary Care Provider Venita Owens Unavailable [phone] Lenny Parikh Unavailable [phone] Allergies Allergen (clinical drug ingredient) Drug/Non Drug Allergy documented on EMR Reaction Allergy Type Onset Date Status Substance with sulfonamide structure and antibacterial mechanism of action (substance) SULFA (SULFONAMIDE ANTIBIOTICS) (uncoded) Unknown Allergy 10/21/2023 Active REASON FOR VISIT Depression screening positive, Established patient struggling with anxiety, MIPS with Diagnosis of HTN Medications Medication SIG (Take, Route, Frequency, Duration) Notes Start Date End Date Status Amoxicillin-Pot Clavulanate 875-125 MG TAKE 1 TABLET BY MOUTH EVERY 12 HOURS Oral for 7 Days Active Omeprazole 20 MG Oral 10/21/2023 Ac tive ALPRAZolam 0.5 MG 1 tablet four times a day and 0.5 tabs bedtime Oral 1 tablet four times a day and 0.5 tabs bedtime for 30 days 1 tablet four times a day and 0.5 tabs bedtime 04/13/2024 Active Levothyroxine Sodium 88 MCG Oral 10/21/2023 Active Lisinopril 30 MG Oral 10/21/2023 Ac tive Propranolol HCl 10 MG 1 tablet on an empty stomach Orally twice a day for 30 days Active Ramelteon 8 MG 1 tablet at bedtime as needed Orally Once a day for 30 days 05/21/2024 06/20/2024 Active Fluticasone Propionate Diskus 50 MCG/ACT Inhalation *Reorder from [employer] for eRx and Interaction Alerts* 10/21/2023 Active Social History Sex Assigned At : Social History Observation Description Sex Assigned At Female Problems Problem Type SNOMED Code ICD Code Onset Dates Problem Status W/U Status Risk Notes Problem 1801042 Primary insomnia (F51.01) Active confirmed Vital Signs Blood pressure systolic 132 mm Hg 05/21/20 24 Blood pressure diastolic 94 mm Hg 024 Heart Rate 122 /min 05/21/2024 Height 69.00 in 05/21/2024 Weight 198.2 lbs 05/21/2024 BMI 29.27 kg/m2 05/21/2024 Height-cm 175.26 cm 05/21/2024 Weight-kg 89.9 kg 05/21/2024 Encounters Encounter Location Date Provider Diagnosis [facility] [facility], [employer] [address] [facility] [address] [place] [address] 05/21/2024 Lenny Clubb Primary insomnia F51.01 and TIAN (generalized anxiety disorder) F41.1 Assessments Encounter Date Diagnosis (ICD Code) Assessment Notes Treatment Notes Treatment Clinical Notes Section Notes 05/21/2024 Primary insomnia (ICD-10 - F51.01) 1. Anxiety - Patient reports increased anxiety for past 1.5 weeks, with restlessness and difficulty sleeping. - History of severe anxiety episodes in the past. - Plan: a. Start propranolol twice daily for internal restlessness. b. Encourage non-pharmacologic al interventions: deep breathing, ice cubes, sour candy. c. Follow up with ALLAN Nathan within a month. 2. Insomnia - Patient reports getting only 2 hours of sleep per night. - Plan: a. Prescribe ramelteon for sleep. b. Consider quetiapine or trazodone if ramelteon ineffective. c. Encourage good sleep hygiene and avoidance of caffeine. 3. Tinnitus - Patient reports ringing in the ears, possibly related to recent ear infection. - Plan: a. Reassure patient that tinnitus will likely improve over time. b. Encourage continued use of prescribed antibiotics for ear infection. 4. Ear Infection - Prescribed antibiotics and antihistamines by GP for suspected ear infection, no visible infection observed. - Plan: a. Encourage completion of antibiotic course. b. Monitor for improvement in symptoms. 5. Psychosocial Stressors - Patient mentions sister dying of cancer and recent surgeries for family members. - Plan: a. Consider referral for therapy if she becomes open to it in future. 05/21/2024 TIAN (generalized anxiety disorder) (ICD-10 - F41.1) 1. Anxiety - Patient reports increased anxiety for past 1.5 weeks, with restlessness and difficulty sleeping. - History of severe anxiety episodes in the past. - Plan: a. Start propranolol twice daily for internal restlessness. b. Encourage non-pharmacologic al interventions: deep breathing, ice cubes, sour candy. c. Follow up with ALLAN Nathan within a month. 2. Insomnia - Patient reports getting only 2 hours of sleep per night. - Plan: a. Prescribe ramelteon for sleep. b. Consider quetiapine or trazodone if ramelteon ineffective. c. Encourage good sleep hygiene and avoidance of caffeine. 3. Tinnitus - Patient reports ringing in the ears, possibly related to recent ear infection. - Plan: a. Reassure patient that tinnitus will likely improve over time. b. Encourage continued use of prescribed antibiotics for ear infection. 4. Ear Infection - Prescribed antibiotics and antihistamines by GP for suspected ear infection, no visible infection observed. - Plan: a. Encourage completion of antibiotic course. b. Monitor for improvement in symptoms. 5. Psychosocial Stressors - Patient mentions sister dying of cancer and recent surgeries for family members. - Plan: a. Consider referral for therapy if she becomes open to it in future. 05/21/2024 Other Assessment and plan reviewed with patient Call for problems with medication, side effects or need for dosage change Compliance issues reviewed Discussed the risks/benefits of this medication Discussed medication side effects Return if symptoms worsen Treatment options reviewed. discussed that it can take weeks to see full therapeutic effects of psychotropic medications. discussed when to seek emergency services. discussed crisis prevention hotline 988. 1. Anxiety - Patient reports increased anxiety for past 1.5 weeks, with restlessness and difficulty sleeping. - History of severe anxiety episodes in the past. - Plan: a. Start propranolol twice daily for internal restlessness. b. Encourage non-pharmacologic al interventions: deep breathing, ice cubes, sour candy. c. Follow up with ALLAN Nathan within a month. 2. Insomnia - Patient reports getting only 2 hours of sleep per night. - Plan: a. Prescribe ramelteon for sleep. b. Consider quetiapine or trazodone if ramelteon ineffective. c. Encourage good sleep hygiene and avoidance of caffeine. 3. Tinnitus - Patient reports ringing in the ears, possibly related to recent ear infection. - Plan: a. Reassure patient that tinnitus will likely improve over time. b. Encourage continued use of prescribed antibiotics for ear infection. 4. Ear Infection - Prescribed antibiotics and antihistamines by GP for suspected ear infection, no visible infection observed. - Plan: a. Encourage completion of antibiotic course. b. Monitor for improvement in symptoms. 5. Psychosocial Stressors - Patient mentions sister dying of cancer and recent surgeries for family members. - Plan: a. Consider referral for therapy if she becomes open to it in future. Plan Of Treatment Medication Medication Name Sig Start Date Stop Date Notes Propranolol HCl 10 MG 1 tablet on an emp ty stomach Orally twice a day for 30 days Ramelteon 8 MG 1 tablet at bedtime as needed Orally Once a day for 30 days 05/21/2024 06/20/2024 Treatment Notes Assessment Notes Other Assessment and plan reviewed with patient Call for problems with medication, side effects or need for dosage change Compliance issues reviewed Discussed the risks/benefits of this medication Discussed medication side effects Return if symptoms worsen Treatment options reviewed. discussed that it can take weeks to see full therapeutic effects of psychotropic medications. discussed when to seek emergency services. discussed crisis prevention hotline 658. [facility] Appt Details Follow Up: 06/17/2024, Reason: Provider Name:Venita Pruettross , 06/17/2024 08:45:00 AM, [employer] [facility], [address], [address], Provider Name:Venita Mavis , 10/11/2024 09:30:00 AM, [employer] [employer], [address], [address], Progress Notes * PEPE WALKERB: 6 (69 yo F)Acc No.[id number]:05/21/2024 Patient:?HÉCTOR WALKER Provider:?ALLAN Amezcua :1955???Age:69 Y???Sex:Female D ate:05/21/2024 Address:[address], [facility] Pcp:Yazmin LILLY Subjective: * Chief Complaints: * ???Depression screening posi tiveEstablished patient struggling with anxietyMIPS with Diagnosis of HTN * HPI: ???Depression Screening:? Chief Complaint: The patient presents with increased anxiety and restlessness, accompanied by tinnitus and sleep disturbances. HPI: The patient reports a significant increase in anxiety and restlessness starting about a week and a half ago. She initially thought she had an ear infection due to tinnitus but was prescribed antibiotics and antihistamines by her GP, who found no signs of infection. She has been taking these medications as prescribed and reports experiencing dry mouth, though not severe. The patient's anxiety has been exacerbated by recent family stressors, particularly her sister's cancer diagnosis and surgeries. She is experiencing difficulty sleeping, getting only 2 hours of sleep per night, and has not been eating well. She denies consuming caffeine or using marijuana. The patient has attempted to manage her anxiety through deep breathing and drinking cold water. The patient reports feeling internal restlessness and describes her insides as shaking. She mentions her heart rate and blood pressure were high during her recent doctor's visit. She expresses concern about her current state, comparing it to a severe episode of anxiety she experienced about 20 years ago. She also mentions having difficulty leaving her house due to anxiety. Medical History: The patient has a history of diverticulitis, a large hernia, and a sulfa allergy. She has been to the emergency room three times in the past two months, twice for a urinary tract infection (UTI) and once for rectal bleeding due to a hemorrhoid. She also experienced a fall that left her unable to walk for 10 weeks (currently ambulatory). Her last thyroid check reported as normal . Medications: The patient is currently taking alprazolam, which is not providing significant relief for her anxiety. She has an old prescription for Ambien but has not been taking it due to concerns about its side effects. She reports that antidepressants tried in the past made her sick. Sleep: The patient is experiencing difficulty sleeping, getting only 2 hours of sleep per night. Other Symptoms: The patient reports tinnitus and dry mouth and restlessness. Social: The patient is not currently in therapy and is unable to afford it at this time. She reports recent family stressors, including her sister's cancer diagnosis and surgeries. ?TIAN-7 (2018 Edition)?Feeling nervous, anxious, or on edge?Nearly every day,?Not being able to stop or control worrying?More than half the days,?Worrying too much about different things?More than hafl the days,?Trouble relaxing More than half the days,?Being so restless that it is hard to sit still?Nearly every day,?Becoming easily annoyed or irritable?Several days,?Feeling afraid as if something awful might happen?Several days,?Total TIAN-7 Score?14,?Interpretation of Total?(10 to 14) Moderate.?Depression screening:?PHQ-9?Little interest or pleasure in doing things?Several days,?Feeling down, depressed, or hopeless?More than half the days,?Trouble falling or staying asleep, or sleeping too much?Nearly every day,?Feeling tired or having little energy?Nearly every day,?Poor appetite or overeating?More than half the days,?Feeling bad about yourself or that you are a failure, or have let yourself or your family down?Several days,?Trouble concentrating on things, such as reading the newspaper or watching television?More than half the days,?Moving or speaking so slowly that other people could have noticed; or the opposite, being so fidgety or restless that you have been moving around a lot more than usual?Several days,?Thoughts that you would be better off or of hurting yourself in some way?Not at all,?Total Score?15,?Interpretation?Moderately Severe Depression.?Intervention?Depression Screening Findings?Positve,?Follow-Up for Depression?Mental health treatment assessment, Patient follow-up to return when and if necessary, Suicide Risk Assessment Performed?05/21/2024 ,?Additional Evaluation for Depression?Psychiatric interview and evaluation,?Name of the standardized tool used for adult depression screening:?Patient Health Questionnaire (PHQ-9).? * ROS:?Psychiatric:?Patient denies?involuntary movements, psychosis, Dissociations, suicidal thoughts, , auditory / visual hallucinations, delusions.?Patient complains of?anxiety, depressed mood, difficulty sleeping, stressors, irritability.? * Medical History:? * Surgical History:? * Hospitalization/Major Diagno stic Procedure:? * Social History:?Drug/Alcohol:?Do you smoke marijuana?: Denies. Do you drink alcohol?: No. * Medications:?TakingPropranol ol HCl 10 MG Tablet 1 tablet on an empty stomach Orally twice a day Ramelteon 8 MG Tablet 1 tablet at bedtime as needed Orally Once a day Fluticasone Propionate Diskus 50 MCG/ACT Aerosol Powder Breath Activated Inhalation , Notes to Pharmacist: *Reorder from [facility] for eRx and Interaction Alerts*Levothyroxine Sodium 88 MCG Tablet Oral Lisinopril 30 MG Tablet Oral Omeprazole 20 MG Capsule Delayed Release Oral ALPRAZolam 0.5 MG Tablet 1 tablet four times a day and 0.5 tabs bedtime Oral 1 tablet four times a day and 0.5 tabs bedtime , Notes to Pharmacist: 1 tablet four times a day and 0.5 tabs bedtimeAmoxicillin-Pot Clavulanate 875-125 MG Tablet TAKE 1 TABLET BY MOUTH EVERY 12 HOURS Oral Medication List reviewed and reconciled with the patientTaking Propranolol HCl 10 MG Tablet 1 tablet on an empty stomach Orally twice a day Taking Ramelteon 8 MG Tablet 1 tablet at bedtime as needed Orally Once a day Taking Fluticasone Propionate Diskus 50 MCG/ACT Aerosol Powder Breath Activated Inhalation , Notes to Pharmacist: *Reorder from [facility] for eRx and Interaction Alerts*Taking Levothyroxine Sodium 88 MCG Tablet Oral Taking Lisinopril 30 MG Tablet Oral Taking Omeprazole 20 MG Capsule Delayed Release Oral Taking ALPRAZolam 0.5 MG Tablet 1 tablet four times a day and 0.5 tabs bedtime Oral 1 tablet four times a day and 0.5 tabs bedtime , Notes to Pharmacist: 1 tablet four times a day and 0.5 tabs bedtimeTaking Amoxicillin-Pot Clavulanate 875-125 MG Tablet TAKE 1 TABLET BY MOUTH EVERY 12 HOURS Oral Medication List reviewed and reconciled with the patient * Allergies:?SULFA (SULFONAMID E ANTIBIOTICS): Allergy - Onset Date 05/14/2024no[Allergies Verified] Objective: * Vitals:?BP:132/94mm Hg, HR:1 22/min, Wt:198.2lbs, Wt-k.9 kg, Ht: 69.00 in, Ht-cm: 175.26 cm, BMI:29.27Index, Body Surface Area: 2.09. * Examination: ???General Examination: ?Psych:?alert and oriented x 3, cognitive function intact, cooperative with exam, maintains good eye contact, with good judgement and insight, normal affect / mood, with no auditory or visual hallucinations, speech is clear and coherent, thought process is logical and goal directed without suidical ideation or delusions.?- Mental Status Examination: - Patient exhibits symptoms of anxiety and depression. - Describes experiencing restlessness and symptoms consistent with restless legs syndrome. - Suffers from insomnia, managing only about 2 hours of sleep per night. - Reports symptoms of tinnitus and a recent increase in anxiety levels. - Emotional distress is noted, related to family health issues, specifically a sister dying of cancer. - No current engagement in therapy, attributed to financial constraints. - Vital Signs: - High heart rate and high blood pressure noted during a GP visit on the Friday prior to the current visit. - Physical Examination: - No signs of ear infection observed during a recent GP examination. - History of diverticulitis and a large hernia mentioned; however, hernia treatment not deemed necessary at this time. - Recent urinary tract infections and a hemorrhoid leading to ER visits mentioned. - Reports of rectal bleeding, attributed to the hemorrhoid. - Diagnostic Test Results and Labs: - Recent thyroid function tests reported as normal, though specific dates and values are not available. - No recent blood work conducted. - Last UTI and related complications resulted in multiple ER visits within the last 2 months. - A total of 3 ER visits in the last 2 months reported: twice for UTI and once for rectal bleeding. Assessment: * Assessment: 1.?Primary insomnia - F51.01 (Primary)???2.?TIAN (generalized anxiety disorder) - F41.1??? 1. Anxiety - Patient reports increased anxiety for past 1.5 weeks, with restlessness and difficulty sleeping. - History of severe anxiety episodes in the past. - Plan: a. Start propranolol twice daily for internal restlessness. b. Encourage non-pharmacological interventions: deep breathing, ice cubes, sour candy. c. Follow up with ALLAN Nathan within a month. 2. Insomnia - Patient reports getting only 2 hours of sleep per night. - Plan: a. Prescribe ramelteon for sleep. b. Consider quetiapine or trazodone if ramelteon ineffective. c. Encourage good sleep hygiene and avoidance of caffeine. 3. Tinnitus - Patient reports ringing in the ears, possibly related to recent ear infection. - Plan: a. Reassure patient that tinnitus will likely improve over time. b. Encourage continued use of prescribed antibiotics for ear infection. 4. Ear Infection - Prescribed antibiotics and antihistamines by GP for suspected ear infection, no visible infection observed. - Plan: a. Encourage completion of antibiotic course. b. Monitor for improvement in symptoms. 5. Psychosocial Stressors - Patient mentions sister dying of cancer and recent surgeries for family members. - Plan: a. Consider referral for therapy if she becomes open to it in future. Plan: * Treatment: 2.?TIAN (generalized anxiety disorder)? Start Propranolol HCl Tablet, 10 MG, 1 tablet on an empty stomach, Orally, twice a day, 30 days, 60, Refills 0.?? 3.?Others? Notes: Assessment and plan reviewed with patient Call for problems with medication, side effects or need for dosage change Compliance issues reviewed Discussed the risks/benefits of this medication Discussed medication side effects Return if symptoms worsen Treatment options reviewed. discussed that it can take weeks to see full therapeutic effects of psychotropic medications. discussed when to seek emergency services. discussed crisis prevention hotline 988.?? * Procedure Codes:?16656 BEHAV ASSMT W/SCORE & DOCD/STAND [id number] VISIT COMPLEXITY INHERENT TO ONGOING CARE RELATED TO A PATIENT'S SINGLE, SERIOUS CONDITION OR A COMPLEX CONDITION * Preventive Medicine:? ??Counseling:?BP Management:?FIRST HYPERTENSIVE BP READING FOLLOW-UP PLAN:?Follow-up 1 month Follow up with your PCP,?LIFESTYLE RECOMMENDATION:?Lifestyle education, REFERRAL TO ALTERNATIVE / PRIMARY CARE PROVIDER:?Referral to general medical service Recommended Nonpharmacologic Interventions (Lifestyle Modifications) - Weight ReductionA heart-healthy diet , such as Dietary Approaches to Stop Hypertension (DASH) Eating PlanDietary Sodium RestrictionIncreased Physical ActivityModeration in alcohol consumption.? * Follow Up:?06/17/2024 * Billing Information: * Visit Code:? 39053 OFFICE OUTPATIENT VISIT 25 MINUTES DETAILED HISTORY AND EXAM/MODERATE MEDICAL DECISION MAKING. * Procedure Codes:? 92154 BEHAV ASSMT W/SCORE & DOCD/STAND INSTRUMENT. G2211 VISIT COMPLEXITY INHERENT TO ONGOING CARE RELATED TO A PATIENT'S SINGLE, SERIOUS CONDITION OR A COMPLEX CONDITION. * PMENT OPERATOR/LABORER/SUPERVISOR Sign off status: Completed true * Provider:?ALLAN Amezcua Date:?05/21 Generated for Winston will/Inder/eTransmitting on:?06/08/2024 06:16 PM EQUIPMENT OPERATOR/LABORER/SUPERVISOR History and Physical Notes * HPI (History of Present Illness) Category Sub-Category Detail Notes Category Not es Depression screening PHQ-9 Little inte rest or pleasure in doing things: Several days Feeling down, depressed, or hopeless: Mo re than half the days Trouble falling or staying asleep, or sl eeping too much: Nearly every day Feeling tired or having little energy: N early every day Poor appetite or overeating: More than h fpc the days Feeling bad about yourself o r that you are a failure, or have let yourself or your family down: Several days Trouble concentrating on thi ngs, such as reading the newspaper or watching television: More than half the days Moving or speaking so slowly that other people could have noticed; or the opposite, being so fidgety or restless that you have been moving around a lot more than usual: Several days Thoughts that you would be b alvaro off or of hurting yourself in some way: Not at all Total Score: 15 Interpretation: Moderately Severe Depres yogi Intervention Depression Screening Findings: P ositve Follow-Up for Depression: [facility] treatment assessment, Patient follow-up to return when and if necessary Suicide Risk Assessment Performed: 05/21 Additional Evaluation for De pression: Psychiatric interview and evaluation Name of the standardized too l used for adult depression screening:: Patient Health Questionnaire (PHQ-9) Depression Screening TIAN-7 (2018 Edition) Feelin g nervous, anxious, or on edge: Nearly every day Not being able to stop or control worryi ng: More than half the days Worrying too much about different things : More than hafl the days Trouble relaxing: More than half the day s Being so restless that it is hard to sit still: Nearly every day Becoming easily annoyed or irritable: Se veral days Feeling afraid as if something awful rebecca ht happen: Several days Total TIAN-7 Score: 14 Interpretation of Total: (10 to 14) Mode rate Examination Category Sub-Category Detail Notes Category Not es General Examination Psych: alert and oriented x 3, cogn itive function intact, cooperative with exam, maintains good eye contact, with good judgement and insight, normal affect / mood, with no auditory or visual hallucinations, speech is clear and coherent, thought process is logical and goal directed without suidical ideation or delusions - Mental Status Examination: - Patient exhibits symptoms of anxiety and depression. - Describes experiencing restlessness and symptoms consistent with restless legs syndrome. - Suffers from insomnia, managing only about 2 hours of sleep per night. - Reports symptoms of tinnitus and a recent increase in anxiety levels. - Emotional distress is noted, related to family health issues, specifically a sister dying of cancer. - No current engagement in therapy, attributed to financial constraints. - Vital Signs: - High heart rate and high blood pressure noted during a GP visit on the Friday prior to the current visit. - Physical Examination: - No signs of ear infection observed during a recent GP examination. - History of diverticulitis and a large hernia mentioned; however, hernia treatment not deemed necessary at this time. - Recent urinary tract infections and a hemorrhoid leading to ER visits mentioned. - Reports of rectal bleeding, attributed to the hemorrhoid. - Diagnostic Test Results and Labs: - Recent thyroid function tests reported as normal, though specific dates and values are not available. - No recent blood work conducted. - Last UTI and related complications resulted in multiple ER visits within the last 2 months. - A total of 3 ER visits in the last 2 months reported: twice for UTI and once for rectal bleeding.
--- OUTSIDE RECORDS SUMMARY | 2024-06-08 18:16 | XMS_ITS | Data Portability ---
Author Organization [facility], Main Office Address [address] [place] [address] Assessment No assessment recorded. Plan of Treatment Reminders Order Date Submit Date Provider Last Modified By Organization Details Last Modified Time Details Appointments None recorded. Lab None recorded. Referral None recorded. Procedures None recorded. Surgeries None recorded. Imaging XR, knee - tibial bone prominence 2022 023 JANETT [facility], [address] [place] [address], [address], 15:08:35 Medication Orders escitalopra m 5 mg tablet 2022 023 [email or web address] [facility] [address] , [place], [address], 3 18:51:04 Patient TargetsNo targets recorded. Patient InstructionsNo instructions recorded. Reason for Referral None Reported. Results Created Date Observation Date Name Description Value Unit Range Abnormal Flag Note LastModifiedBy Organization Detail LastModifiedTime 02/26/2002/21/2022 XR, chest , 2 view No observ ation record ed. [id number], [place], [address], 08/07/2022 17:17:56 07/17/19 23 07/15/2022 CT, abdom en + pelvi s, w/ contr ast No observ ation record ed. [id number], [place], [address], 08/07/2022 17:17:56 02/01/20 23 01/28/2023 XR, knee No observ ation record ed. [email or web address] [facility] [address], [place], [address], 01/31/2023 16:52:07 04/14/20 23 04/14/2023 CT, abdom en + pelvi s, w/ contr ast No observ ation record ed. [email or web address] [facility] [address], [place], [address], 04/16/2023 16:51:35 Result Notes None recorded. Problems Name Problem SNOMED Code Status Onset Date Resolution Date Notes Provider Name and Address Organization Details Recorded Time Benign essential hypertension 7680831 Active Not Available [facility] 3 17:15:35 Acute sinusitis 82847496 Active Not Available [facility] 3 17:15:35 Generalized anxiety disorder 76535587 Active Not Available [facility] 3 17:15:35 Gastroesophag eal reflux disease 682271765 Active Not Available [facility] 3 17:15:36 Gastroesophag eal reflux disease without esophagitis 902105336 Active 2021 Not Available [facility] 3 17:15:36 Acute pharyngitis 543268442 Active Not Available [facility] 3 17:15:36 Hypothyroidis m 04020715 Active Not Available [facility] 3 17:15:36 Laryngitis 73621304 Active Not Available [facility] 3 17:15:36 Hyperlipidemi a 78552888 Active Not Available [facility] 3 17:15:36 Posterior rhinorrhea 94189452 Active Not Available [facility] 3 17:15:36 Diverticuliti s 851165966 Active 2022 VIJAYA Walker [address], [place] [address], [place], [address] , [facility] 3 17:13:54 Diarrhea 78765532 Active 2022 VIJAYA Walker [address], [address], [place], [address] , [facility] [employer] [facility] 3 12:53:53 Diverticular disease 570399117 Active 2022 VIJAYA Walker [address], [address], [place], [address] , [facility] [employer] [facility] 3 12:54:02 Depressive disorder 13071003 Active 2022 VIJAYA Walker [address], [address], [place], [address] , [facility] [employer] [facility] 3 12:54:08 Disorder of bone 35875856 Active 2022 VIJAYA Walker [address], [address], [place], [address] , [facility] [employer] [facility] 3 12:07:01 Acute urinary tract infection 104510069 Active 2022 VIJAYA Walker [address], [address], [place], [address] , [facility] [employer] [facility] 3 16:23:37 Problem Notes None recorded. Procedures Surgical History Date Name Laterality Status Provider Name and Address Organization Details Recorded Time 05/29/20 18 Date of Last Colonoscopy completed Not Available [facility] 08/07/2022 17:13:33 05/29/20 18 Colonoscopy completed Not Available [facility] 08/07/2022 17:13:34 hysterectomy completed Not Available [facility] 08/07/2022 17:13:34 dilatation and curettage: routine completed Not Available [facility] 08/07/2022 17:13:34 Cholecystectomy completed Not Available [facility] 08/07/2022 17:13:34 Imaging Results Imaging Date Name Status LastModified by [facility] Details LastModified Time 07/15/2022 CT, abdomen + pelvis, w/ contrast completed [id number] [place] [address], [address], 08/07/2022 17:17:56 02/21/2022 XR, chest, 2 view completed [id number] [address], [address], 08/07/2022 17:17:56 01/28/2023 XR, knee completed [email or web address] [facility] [address] [facility] [address], [place], [address], 01/31/2023 16:52:07 04/14/2023 CT, abdomen + pelvis, w/ contrast completed [email or web address] [facility] [address], [place], [address], 04/16/2023 16:51:35 Procedure Notes None recorded. Medical Equipment None Reported. Allergies Allergen ID Allergen Name Allergen Category Reaction Reaction Severity Criticality Documentation Date Start Date Code Code System Note Provider Name and Address Organization Details Recorded Time 83680 cholecalc iferol medicatio n rash Not available Not available 08/07/2022 2418 RxNorm Not Available [facility] 3 17:17:52 11000 Substance with sulfonami de structure and antibacte rial mechanism of action (substanc e) medicatio n other Not available Not available 08/07/2022 39507 8003 SNOMED lip swell Not Available [facility] 3 17:17:52 51363 levofloxa mir medicatio n Not available Not available Not available 09/23/2022 23290 RxNorm NANCY Davis [facility] 3 12:28:24 21475 Flagyl medicatio n Not available Not available Not available 09/23/2022 22321 6 RxNorm NANCY Davis [facility] 3 12:28:29 Medications Name Sig Start Date Stop Date Status Note LastModified by Organization Details LastModified Time clotrimaz ole 10 mg reba Take 1 tablet 5 times a day by oral route as directed . active Not Available Not Available No t Available azelastin e 0.05 % eye drops INSTILL 1 DROP INTO AFFECTED EYE(S) TWICE DAILY 06/21 completed Not Available Not Available Not Available azithromy mir 250 mg tablet TAKE 2 TABLETS BY MOUTH ON DAY 1, AND THEN TAKE 1 TABLET BY MOUTH ONCE A DAY ON DAY 2 THROUGH DAY 5 01/27 completed Not Available Not Available Not Available alprazola m 1 mg tablet active Not Available Not Available Not Available Lidocaine Viscous 2 % mucosal solution APPLY TO AFFECTED MUCOSAL AREA FOUR TIMES DAILY NEEDED FOR 7 DAYS active Not Available Not Available No t Available fluconazo le 150 mg tablet Take 1 tablet every day by oral route as directed . active Not Available Not Available No t Available benzonata te 200 mg capsule TAKE 1 CAPSULE BY MOUTH THREE TIMES DAILY FOR 7 DAYS NEEDED FOR COUGH 01/27 completed Not Available Not Available Not Available lisinopri l 20 mg tablet TAKE 1 TABLET BY MOUTH ONCE DAILY 07/31 completed Not Available Not Available Not Available moxifloxa mir 400 mg tablet TK 1 T PO QD 12/18 completed Not Available Not Available Not Available metronida zole 500 mg tablet TAKE 1 TABLET BY MOUTH EVERY 8 HOURS FOR 7 DAYS 09/23 completed Not Available Not Available Not Available Bisac-Desiree c 10 mg rectal supposito ry UNW AND I 1 SUP REC UTD 07/13 completed Not Available Not Available Not Available peg-elect rolyte solution 420 gram oral solution MIX AND DRINK UTD 07/13 completed Not Available Not Available Not Available Kenalog 40 mg/mL suspensio n for injection Take 1 mL by injectio n route. 06/23 completed Internal note: [facility]#[phone] 8Externa l note: pt tolerate d it well Not Available Not Available Not Available levothyro xine 88 mcg tablet TAKE 1 TABLET BY MOUTH ONCE DAILY IN THE MORNING 2023 active Not Available Not Available Not Avai lable alprazola m 0.5 mg tablet TAKE 1 & 1/2 (ONE & ONE-HALF ) TABLETS BY MOUTH 4 TIMES DAILY active Not Available Not Available No t Available amoxicill in 875 mg tablet TAKE 1 TABLET BY MOUTH EVERY 12 HOURS FOR 7 DAYS active Not Available Not Available No t Available alprazola m 0.25 mg tablet active Not Available Not Available Not Available Silvadene 1 % topical cream APPLY A THICK LAYER TO ENTIRE BURN AREA o hand BY TOPICALR OUTE 2 TIMES PER DAY 07/02 completed Not Available Not Available Not Available meclizine 25 mg tablet Take 1 tablet 3 times a day by oral route as needed for 20 days. 02/25 completed for dizzines s Not Available Not Available Not Available simvastat in 20 mg tablet Take 1 tablet every day by oral route. 2014 active Not Available Not Available Not Avai lable lisinopri l 10 mg tablet TAKE ONE TABLET BY MOUTH ONCE DAILY 09/23 completed Not Available Not Available Not Available lisinopri l 30 mg tablet TAKE 1 TABLET BY MOUTH ONCE DAILY 2023 active Not Available Not Available Not Avai lable omeprazol e 20 mg capsule,d elayed release TAKE 1 CAPSULE BY MOUTH ONCE DAILY active Not Available Not Available No t Available zolpidem 5 mg tablet TAKE 1 TABLET BY MOUTH AT BEDTIME NEEDED 07/31 completed Not Available Not Available Not Available mirtazapi ne 15 mg tablet TK 1 T PO QHS 09/01 completed Not Available Not Available Not Available levofloxa mir 500 mg tablet TAKE 1 TABLET BY MOUTH EVERY 24 HOURS 09/23 completed Not Available Not Available Not Available levofloxa mir 750 mg tablet TAKE 1 TABLET BY MOUTH ONCE DAILY 07/30 completed Not Available Not Available Not Available zolpidem 10 mg tablet TK 1 T PO QHS FOR INSOMNIA 08/29 completed pt is not taking them Not Available Not Available Not Available methylpre dnisolone 4 mg tablets in a dose pack FOLLOW PACKAGE DIRECTIO NS 06/20 completed Not Available Not Available Not Available Vitamin D2 1,250 mcg (50,000 unit) capsule Take 1 capsule every week by oral route as directed . 06/24 completed Not Available Not Available Not Available ondansetr on 4 mg disintegr ating tablet DISSOLVE 1 TABLET IN MOUTH EVERY 8 HOURS NEEDED FOR NAUSEA AND VOMITING active Not Available Not Available No t Available amoxicill in 875 mg-potass ium clavulana te 125 mg tablet TAKE 1 TABLET BY MOUTH EVERY 12 HOURS 06/10 completed Not Available Not Available Not Available escitalop katrina 5 mg tablet Take 1 tablet every day by oral route in the evening. 2022 active Not Available Not Available Not Avai lable nitrofura ntoin monohydra te/macroc rystals 100 mg capsule TAKE 1 CAPSULE BY MOUTH EVERY 12 HOURS 06/20 completed Not Available Not Available Not Available eszopiclo ne 2 mg tablet active Not Available Not Available Not Available nystatin uses 4 times a day 09/01 completed Not Available Not Available Not Available omeprazol e takes daily 07/02 completed Not Available Not Available Not Available levothyro xine 88 mcg capsule Take 1 capsule every day by oral route. 2014 active Not Available Not Available Not Avai lable Flonase Allergy Relief 50 mcg/actua tion nasal spray,venessa pension [place] 1 spray every day by intranas al route. 05/11 completed Not Available Not Available Not Available Vitals Date Recorded Body mass index (BMI) Body height Oxygen saturation Oxygen saturation in Arterial blood by Pulse oximetry Heart rate Respiratory rate Body temperature Body weight Systolic blood pressure Diastolic blood pressure Provider Name and Address Organization Details Last Updated DateTime 2 34.2 kg/m2 167.64 cm 96 % 96 % 110 /min 16 /min 96.8 [degF] 59086.8 6 g 122 mm[Hg] 78 mm[Hg] Not Available [facility] 3 17:14:53 Date Recorded Body mass index (BMI) Body height Oxygen saturation Oxygen saturation in Arterial blood by Pulse oximetry Heart rate Body temperature Body weight Systolic blood pressure Diastolic blood pressure Provider Name and Address Organization Details Last Updated DateTime 3 34.2 kg/m2 167.64 cm 98 % 98 % 101 /min 87.4 [degF] 74595.5 8 g 124 mm[Hg] 82 mm[Hg] Not Available [facility] 3 17:14:53 Date Recorded Body height Body temperature Body mass index (BMI) Body weight Respiratory rate Oxygen saturation Oxygen saturation in Arterial blood by Pulse oximetry Heart rate Systolic blood pressure Diastolic blood pressure Provider Name and Address Organization Details Last Updated DateTime 3 167.64 cm 98.1 [degF] 33.9 kg/m2 95325.4 g 16 /min 95 % 95 % 125 /min 122 mm[Hg] 80 mm[Hg] NANCY [facility] [place] [facility] 3 12:28:00 Date Recorded Body height Body mass index (BMI) Body weight Body temperature Heart rate Oxygen saturation Oxygen saturation in Arterial blood by Pulse oximetry Systolic blood pressure Diastolic blood pressure Provider Name and Address Organization Details Last Updated DateTime 3 167.64 cm 33.7 kg/m2 17262.8 1 g 98.4 [degF] 107 /min 95 % 95 % 128 mm[Hg] 90 mm[Hg] Mini Henry RN [place] [facility] [employer] 3 11:42:30 Social History Question Answer Notes LastModified by Organizat ion Details LastModified Time Tobacco Smoking Status Never Smoker Not Available [facility] 08/07/2022 17:13:22 Do You Have An Advance Directive? No [id number] Information not available 08/07/2022 What Is Your Level Of Alcohol Consumption? None MIGRATION.[id number] 0236 Information not available 08/07/2022 Are You Blind Or Do You Have Difficulty Seeing? Yes MIGRATION.[id number] 1431 Information not available 08/07/2022 What Is Your Level Of Caffeine Consumption? Moderate MIGRATION.067796 1923 Information not available 08/07/2022 In The 14 Days Before Symptom Onset, Have You Had Close Contact With A Laboratory-confir med COVID-19 While That Case Was Ill? No MIGRATION.259007 1393 Information not available 08/07/2022 In The 14 Days Before Symptom Onset, Have You Had Close Contact With A Person Who Is Under Investigation For COVID-19 While That Person Was Ill? No MIGRATION.336114 9332 Information not available 08/07/2022 Are You Currently Employed? Yes [email or web address] Information not available 09/20/2022 Are You Deaf Or Do You Have Serious Difficulty Hearing? No MIGRATION.793323 0913 Information not available 08/07/2022 What Type Of Diet Are You Following? REGULAR MIGRATION.722149 0524 Information not available 08/07/2022 What Is Your Occupation? [employer] MIGRATION.[id number] 0960 Information not available 08/07/2022 Have There Been Any Changes To Your Family Or Social Situation? No MIGRATION.789041 3573 Information not available 08/07/2022 Are There Any Guns Present In Your Home? No MIGRATION.527458 0860 Information not available 08/07/2022 Do You Use Insect Repellent Routinely? No MIGRATION.016338 1470 Information not available 08/07/2022 Do You Have A Medical Power Of Belt Turner? No MIGRATION.918099 1821 Information not available 08/07/2022 What Is Your Relationship Status? Single MIGRATION.046539 0776 Information not available 08/07/2022 Do You Use Your Seat Belt Or Car Seat Routinely? Yes MIGRATION.788924 8823 Information not available 08/07/2022 Do You Have Smoke And Carbon Monoxide Detectors In Your Home? Yes MIGRATION.148545 8628 Information not available 08/07/2022 Do You Use Any Illicit Or Recreational Drugs? No MIGRATION.814060 3372 Information not available 08/07/2022 Do You Use Sunscreen Routinely? Yes MIGRATION.283582 7620 Information not available 08/07/2022 Have You Recently Traveled Abroad? No MIGRATION.132071 0795 Information not available 08/07/2022 Do You Have Any Dietary Restrictions? No MIGRATION.721297 3373 Information not available 08/07/2022 Do You Or Have You Ever Used Any Other Forms Of Tobacco Or Nicotine? No MIGRATION.279569 5111 Information not available 08/07/2022 Sex: Unknown Functional Status Question Answer Note LastModified by Organizat ion Details LastModified Time Do you have difficulty walking or climbing stairs? No MIGRATION.[id number] 026 Information not available 08/07/2022 Do you have transportation difficulties? No MIGRATION.5090176 026 Information not available 08/07/2022 Are you able to walk? YESWOREST MIGRATION.1850378 026 Information not available 08/07/2022 Do you have difficulty doing errands alone? No MIGRATION.8527245 026 Information not available 08/07/2022 Are you able to care for yourself? Yes MIGRATION.3698174 026 Information not available 08/07/2022 Do you have difficulty dressing or bathing? No MIGRATION.2858564 026 Information not available 08/07/2022 What is your exercise level? None MIGRATION.5758710 026 Information not available 08/07/2022 Mental Status Question Answer Note LastModified by Organizat ion Details LastModified Time Do you have difficulty concentrating, remembering or making decisions? No [id number].[id number] 6 Information not available 08/07/2022 Family History Relationship Description Onset Age of this Age Resolved Age Notes LastModified by Organization Details LastModified Time Mother Hypertensive disorder [id number] Not available 08/07/2022 17:13:35 Sister Malignant tumor of breast MIGRATION.[id number] Not available 08/07/2022 17:13:35 Medical History Condition Response ANXIETY DISORDER Y SLEEP DISORDER Y DEPRESSION (INCLUDING POST ) Y HEARTBURN / REFLUX Y HYPERTENSION Y HIGH CHOLESTEROL / HYPERLIPIDEMIA Y Gynecological History Statement/Question Response Date of Last Colonoscopy 05/29/2018 Obstetrics History GPAL:G 0 P 0 0 0 0 Immunizations Vaccine Type Date Status Note Provider Nam e and Address Organization Details Recorded Time COVID-19, mRNA, LNP-S, PF, 30 mcg/0.3 mL dose 1 completed Not Available [facility] 08/07/2022 17:17:47 COVID-19, mRNA, LNP-S, PF, 30 mcg/0.3 mL dose 0 completed Not Available [facility] 08/07/2022 17:17:47 influenza, unspecified formulation 5 completed Not Available [facility] 08/07/2022 17:17:47 TST, unspecified formulation 3 completed Not Available [facility] 08/07/2022 17:17:47 COVID-19, mRNA, LNP-S, PF, 30 mcg/0.3 mL dose 1 completed Not Available [facility] 08/07/2022 17:17:47 influenza, unspecified formulation 6 completed Not Available [facility] 08/07/2022 17:17:47 influenza, unspecified formulation 4 completed Not Available [facility] 08/07/2022 17:17:48 Past Encounters Encounter ID Performer Location Encounter Start Date Encounter Closed Date Diagnosis/Indication Diagnosis SNOMED-CT Code Diagnosis ICD10 Code [id number] [facility] [address] [place] [address] 06/21/2021 00:00:00 07/09/2021 13:10:34 [id number] [facility] [address] [place] [address] 07/30/2022 00:00:00 08/04/2022 14:37:19 [id number] VIJAYA Walker [facility] [address] [place] [address] 09/23/2022 12:19:24 09/23/2022 13:00:20 Diarrhea 89017907 R19.7 Diverticular disease 397 201879 K57.90 Depressive disorder 3548 9007 F32.A [id number] VIJAYA Walker [facility] [address] [place] [address] 01/28/2023 11:33:44 01/28/2023 12:10:11 Disorder of bone 69037357 M89.9 Health Concerns Section Related Observation LastModified by Organization Detai ls LastModified Time None Recorded Concern Status LastModified by Organization Details LastModified Time None Recorded Advance Directives Directive N: Payers Encounter Date Sequence Insurance Name Policy Number Policy James Covered Member ID James Member ID Guarantor Name 09/23/2022 1 [place] Daksha D Strain [id number] 6 Daksha Strain 01/28/2023 1 [place] Daksha D Strain [id number] 6 Daksha Strain Notes Date Note Type Note Provider Name and Address Organization Details Recorded Time 022 text/h tml Anxiety/DepressionReported bypatient.Severity:denies suicidal ideations; able to maintain relationships; does not interfere with activities of daily living Context:no major life stressors Modifying Factors:medications as directed Associated Symptoms:denies homicidal ideations; no significant weight gain; no significant weight loss; no visual/auditory hallucinations; no delusions; no shortness of breath; mood good; no anxiety; no crying spells; no panic; no isolation; sleeping well; appetite good; energy good; no apathy; maintaining functionalityHyperlipidemiaReported bypatient.Duration:chronic Control:usually well controlled Compliance:compliant;noncompliant with diet;does not exercise Complications:no coronary artery disease; no peripheral artery disease; no cardiovascular diseaseHypertensionReported bypatient.Duration:has noted for years Onset/Timing:better Alleviating Factors:medication Self Care:not under emotional stress Associated Symptoms:no shortness of breath; no fatigue; no palpitations; no decline in exercise capacity; no snoringHypothyroidismReported bypatient.Duration:constant Onset/Timing:still present Context/Risk:normal thyroid levels; no history of head or neck radiation during childhood; no history of thyroid disease; no history of hyperthyroidism; no excess iron exposure;history of hypothyroidism;female gender Modifying Factors:medication Exerciseno exercise Associated Symptoms:no cold intolerance; no heat intolerance; no weight loss; no weight gain; no double vision; no dry eyes; no hoarseness; no difficulty swallowing; no neck masses; no deepening of the voice; no fast heart rate; no increased blood pressure; no palpitations; no chest pain; no chest tightess or pressure; no constipation; no diarrhea; no vomiting; no decreased appetite; no loose stools; no irregular menstrual periods; no excessive sweating; no joint pain; no numbness; no tingling of the hands or feet; no dry skin; no tremor; no nervousness; no anxiety; no depression; no fatigue; no sleep difficulties; no hair changes;skin changes Not Available [facility] 07/09/2021 13:10:34 023 text/h tml Anxiety/DepressionReported bypatient.Severity:denies suicidal ideations; able to maintain relationships; does not interfere with activities of daily living Context:no major life stressors Modifying Factors:medications as directed Associated Symptoms:denies homicidal ideations; no significant weight gain; no significant weight loss; no visual/auditory hallucinations; no delusions; no shortness of breath; mood good; no anxiety; no crying spells; no panic; no isolation; sleeping well; appetite good; energy good; no apathy; maintaining functionality HyperlipidemiaReported bypatient.Duration:chronic Control:usually well controlled Compliance:compliant;noncompliant with diet;does not exercise Complications:no coronary artery disease; no peripheral artery disease; no cardiovascular diseaseHypertensionReported bypatient.Duration:has noted for years Onset/Timing:better Alleviating Factors:medication Self Care:not under emotional stress Associated Symptoms:no shortness of breath; no fatigue; no palpitations; no decline in exercise capacity; no snoringHypothyroidismReported bypatient.Duration:constant Onset/Timing:still present Context/Risk:normal thyroid levels; no history of head or neck radiation during childhood; no history of thyroid disease; no history of hyperthyroidism; no excess iron exposure;history of hypothyroidism;female gender Modifying Factors:medication Exerciseno exercise Associated Symptoms:no cold intolerance; no heat intolerance; no weight loss; no weight gain; no double vision; no dry eyes; no hoarseness; no difficulty swallowing; no neck masses; no deepening of the voice; no fast heart rate; no increased blood pressure; no palpitations; no chest pain; no chest tightess or pressure; no constipation; no diarrhea; no vomiting; no decreased appetite; no loose stools; no irregular menstrual periods; no excessive sweating; no joint pain; no numbness; no tingling of the hands or feet; no dry skin; no tremor; no nervousness; no anxiety; no depression; no fatigue; no sleep difficulties; no hair changes;skin changes Not Available [facility] 08/04/2022 14:37:19 023 text/h tml DepressionReported bypatient.Quality:mood worse Severity:denies suicidal ideations; able to maintain relationships;interference with household activities;interference with sleep Duration:symptoms lasting over 2 weeks Onset/Timing:still present Context:no major life stressors Modifying Factors:social support Associated Symptoms:depression;anhedonia;low self-esteem;pessimism;despair/hopeles sness;social withdrawal; pt does have 1 very close friend she spends time with and stays over at her house. good support person.DiarrheaReported bypatient.Quality:improving Onset/Timing:no nocturnal symptoms; stopped now Context:no one else with similar symptoms; no recent camping; no recent picnic; no possible food sources; no recent travel Alleviating Factors:she took the abx for 4 days then she stopped them bc they caused her to shake really bad. Associated Symptoms:no abdominal pain; no excess gas; no fever; no rash; no joint pain; no weight loss; no vomiting; no heartburn; no blood in stool; no mucus in stool; no black or tarry stools; no weakness; no nutrient deficiency VIJAYA Walker [address], [id number], [facility] 10/04/2022 18:55:46 023 text/h tml Generic HPI TemplateReported bypatient.Location:left knee Quality:knot, swollen, immobile Duration:one month Context:no known injury Aggravating factors:tender to pressure VIJAYA Walker [address] [facility] [address], [place], [id number], [facility] 02/06/2023 13:31:50 OBGyn Episode No OBEpisode recorded.
--- OUTSIDE RECORDS SUMMARY | 2024-06-08 18:17 | XMS_ITS ---
Author Organization [facility] [employer] Address [address] [place] [address] Care Team Providers Care Clinical Program Consultant Name Role Phone Yazmin Kelley Primary Care Provider Venita Owens Unavailable [phone] Allergies Allergen (clinical drug ingredient) Drug/Non Drug Allergy documented on EMR Reaction Allergy Type Onset Date Status Substance with sulfonamide structure and antibacterial mechanism of action (substance) SULFA (SULFONAMIDE ANTIBIOTICS) (uncoded) Unknown Allergy 10/21/2023 Active Results Component Value Reference Range Notes UDT Reviewed date:01/13/2024 10:14:00 AM Interpretation: Performing Lab: Notes/Report: THC NEG 0 - 50 ng/ml Cocaine NEG 0 - 300 ng/ml Amphetamine NEG 0 - 1000 ng/ml Buprenorphine (BUP) NEG 0 - 10 ng/ml Secobarbital (Bar) NEG 0 - 300 ng/ml Oxazepam (BZO) POS 0 - 300 ng/ml 3-fnudiaubty-5,8-okexhlsu-4,3-diphenylpyrrolidine (JOEY P) NEG 0 - 300 ng/ml Methamphetamine (MET) NEG 0 - 1000 ng/ml Methylenedioxymethamphetamine (MDMA) NEG 0 - 500 ng/ml Morphine (MOP 300/[id number]) NEG 0 - 300 ng/ml Methadone (MTD) NEG 0 - 300 ng/ml Phencyclidine (PCP) NEG 0 - 25 ng/ml Propoxyphene (PPX) NEG 0 - 300 ng/ml Nortriptyline (TCA) NEG 0 - 1000 ng/ml Oxycodone NEG 0 - 300 ng/ml REASON FOR VISIT Follow Up, states she has been stressing a lot lately Medications Medication SIG (Take, Route, Frequency, Duration) Notes Start Date End Date Status Naproxen 500 MG Oral 10/21/2023 Not -Taking Omeprazole 20 MG Oral 10/21/2023 Ac tive ALPRAZolam 0.5 MG 1 tablet four times a day and 0.5 tabs bedtime Oral 1 tablet four times a day and 0.5 tabs bedtime for 30 days 1 tablet four times a day and 0.5 tabs bedtime 01/13/2024 Active Levothyroxine Sodium 88 MCG Oral 10/21/2023 Active Fluticasone Propionate Diskus 50 MCG/ACT Inhalation *Reorder from [employer] for eRx and Interaction Alerts* 10/21/2023 Active Lisinopril 30 MG Oral 10/21/2023 Ac tive Social History Sex Assigned At : Social History Observation Description Sex Assigned At Female Problems Problem Type SNOMED Code ICD Code Onset Dates Problem Status W/U Status Risk Notes Problem Mild recurrent major depression (47832022) Major depressive disorder, recurrent, mild (F33.0) 4 Active confirmed Problem Generalized anxiety disorder (55666569) Generalized anxiety disorder (F41.1) 4 Active confirmed Problem Long-term current use of drug therapy (543222021) Other fci (current) drug therapy (Z79.899) 4 Active confirmed Vital Signs Blood pressure systolic 126 mm Hg 01/13/20 24 Blood pressure diastolic 83 mm Hg 024 Heart Rate 89 /min 01/13/2024 Height 69.00 in 01/13/2024 Weight 199.8 lbs 01/13/2024 BMI 29.5 kg/m2 01/13/2024 Height-cm 175.26 cm 01/13/2024 Weight-kg 90.63 kg 01/13/2024 Encounters Encounter Location Date Provider Diagnosis [facility] [employer] [facility] [address] [facility] [address] [place] [address] 01/13/2024 Venita Gamble Major depressive disorder, recurrent, mild F33.0 ; Generalized anxiety disorder F41.1 and Other fci (current) drug therapy Z79.899 Assessments Encounter Date Diagnosis (ICD Code) Assessment Notes Treatment Notes Treatment Clinical Notes Section Notes 01/13/2024 Major depressive disorder, recurrent, mild (ICD-10 - F33.0) 1. Generalized anxiety disorder - presently taking Alprazolam 0.5 mg- 1.5 tab - 4x day, hx antidepressants and made sick no early refills on control substance and local pharmacy in [place] and 30 days at a time on refills Discussed and educated pt regarding benzodiazepines are generally not intended for prolonged use and that use can cause tolerance, dependence, depression, and associated memory issues including dementias (this list is not exhaustive). Benzodiazepine use is generally not recommended concurrently with pain medications and/or other controlled substances due to increased risks of profound sedation, respiratory depression, coma, and even . They are not to be used with any alcohol, as this combination can also be lethal. Patient was provided caution patient reported no computer at home 2. Mild recurrent major depression - Medication Management and Follow-Up- Plan:- Schedule follow-up appointments every 2-3 months to monitor the patient's response to the medication regimen.- Reinforce the importance of avoiding recreational drug use due to potential neurotoxicity and interactions with prescribed medications. 3. Long-term drug therapy 01/13/2024 Generalized anxiety disorder (ICD-10 - F41.1) 1. Generalized anxiety disorder - presently taking Alprazolam 0.5 mg- 1.5 tab - 4x day, hx antidepressants and made sick no early refills on control substance and local pharmacy in [place] and 30 days at a time on refills Discussed and educated pt regarding benzodiazepines are generally not intended for prolonged use and that use can cause tolerance, dependence, depression, and associated memory issues including dementias (this list is not exhaustive). Benzodiazepine use is generally not recommended concurrently with pain medications and/or other controlled substances due to increased risks of profound sedation, respiratory depression, coma, and even . They are not to be used with any alcohol, as this combination can also be lethal. Patient was provided caution patient reported no computer at home 2. Mild recurrent major depression - Medication Management and Follow-Up- Plan:- Schedule follow-up appointments every 2-3 months to monitor the patient's response to the medication regimen.- Reinforce the importance of avoiding recreational drug use due to potential neurotoxicity and interactions with prescribed medications. 3. 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 Generalized anxiety disorder - presently taking Alprazolam 0.5 mg- 1.5 tab - 4x day, hx antidepressants and made sick no early refills on control substance and local pharmacy in [place] and 30 days at a time on refills Discussed and educated pt regarding benzodiazepines are generally not intended for prolonged use and that use can cause tolerance, dependence, depression, and associated memory issues including dementias (this list is not exhaustive). Benzodiazepine use is generally not recommended concurrently with pain medications and/or other controlled substances due to increased risks of profound sedation, respiratory depression, coma, and even . They are not to be used with any alcohol, as this combination can also be lethal. Patient was provided caution patient reported no computer at home 2. Mild recurrent major depression - Medication Management and Follow-Up- Plan:- Schedule follow-up appointments every 2-3 months to monitor the patient's response to the medication regimen.- Reinforce the importance of avoiding recreational drug use due to potential neurotoxicity and interactions with prescribed medications. 3. Long-term drug therapy Plan Of Treatment Medication Medication Name Sig Start Date Stop Date Notes ALPRAZolam 0.5 MG 1 tablet four times a day and 0.5 tabs bedtime Oral 1 tablet four times a day and 0.5 tabs bedtime for 30 days 01/13/2024 1 tablet four times a day and 0.5 tabs bedtime Next Appt Details Follow Up: 3 Months, Reason: f/u anxiety and rx Provider Name:Venita Gamble , 06/17/2024 08:45:00 AM, [address] [facility], [address], [address], Provider Name:Venita Gamble , 10/11/2024 09:30:00 AM, [address], [place] [address], [place], [address], Progress Notes * PEPE WALKERB: 6 (68 yo F)Acc No.[id number]:01/13/2024 Patient:?HÉCTOR WALKER Provider:?ALLAN MACDONALD :1955???Age:68 Y???Sex:Female D ate:01/13/2024 Address:[address] [place] [address], [id number] Subjective: * Chief Complaints: * ???1. Follow Up, states she has been stressing a lot lately. * HPI: ???History of Presenting Problem:? Generalized Anxiety DisorderReported by?patient.Onset/Timing:?as long as patient can remember; since childhood Severity:?moderate Context:?depression Modifying Factors:?psychotropic medication Associated Symptoms:?no twitching;?difficulty controlling worry;?fatigue; no panic attacks Notes: brother n law stress and neighbor stress? Follow up depression, anxiety chronic stince last visit reported I have had couple major stressors goign on lately, no walker now and much better, I have issue with neighbor I live in [facility] and she throw thigns at my rebollar and bang on floor 8 hours straight I try to be nice to her, she will cuss me out, I went in house and she will pound on my door, I start to feel bad and not do anything about it when she say she does not know why she acts that way, she takes over my parking space and I asked about her intentions since she is not using her garage and it is an inconvience for her to use her garage and I dread to call land lord or police and unsure why I can not do it, I been there 13 years, I can not sleep last 4 nights I can not?I was sleeping fine before all this,and they look in my windows and stand on my sidewalks 4 am and I am stress out. appetite fine,? ?I worry about everything and if I have nothing to worry about I will find something, with situation I been feeling stress and get to me,?I have no panic attacks I felt uncomfortable, I been helping [email or web address], no domo, no psychosis, no delusions, no paranoia, motivation and interest? little better trying to do things, concentration and focus no issues, energy ok I do not do a lot, sister terminally ill and her been putting sexual things towards me and he is a jerk, he will say things to me and makes me uncomfortable,?all stressing me, little more anxiety not anymor edepression, no agitation? 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, I used eye drops and the specialist listen to me I was allergic to them and burn when went to bathroom and I feel all of it r/t eye drop, all stopped when stopped eye drops, I felt like electric smell in nose I had with them hx PTSD- family life dad was verbal abusive and leave mom, I was not close to my dad, No nightmares or flashbacks,?sister terminal breast to bone she is 70 years old I was with [employer] and after quit job I have not 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 I feel best decision denies SI/HI no plans or intent no past attempts no FH, no thoughts harm to self or others, no self cutting or self harm, no past psychiatric hospital, no weapons in home, ETOH- denies smoking- denies labs- recently in hospital and? see PCP 11/30 drugs- denies presently taking Alprazolam 0.5 mg- 1.5 tab - 4x day x 25 years ,hx antidepressants and made sick reported COVID vaccine x 4 Major Depressive DisorderReported by?patient.Onset/Timing:?as long as patient can remember Severity:?mild Context:?history of depression Associated Symptoms:?no difficulty concentrating; no irritability; no agitation; no change in appetite; no weight loss; weight gain; no feelings of hopelessness; no feelings of helplessness; no inappropriate guilt; participates in usual acitivities; no suicidal ideations;? sleep disturbances; no excessive sleeping; no hallucinations; no delusions;?fatigue Domo Reported by?patient.Notes:denies Psychosis Reported by?patient.Notes:denies Psychotherapy InterventionReported by?patient.Notes:hx refer to [facility] rx hx Alprazolam 0.5 mg 1.5 tab - 4x day, Lexapro 5 mg in evening, hx antidepressants and made sick. * ROS:?Patient reports?eye disease/injury?but reports wears glasses/contact lenses;?need cataract surgery. She reports?ankle swelling (foot r/t leg)?but reports no chest pain, no arm pain on exertion, no shortness of breath when walking, no shortness of breath when lying down, no palpitations, and no known heart murmur. She reports?GERD?but reports no abdominal pain, no nausea, no vomiting, no constipation, normal appetite, and no diarrhea;?hernia hx Divtolotisis. She reports?arthralgias/joint pain (hx left leg) and no difficulty walking? ?She reports no weakness and no gait dysfunction? but reports no loss of consciousness, no numbness, no seizures, no dizziness, no migraines, and no tremor. She reports?depression and anxiety?but reports? sleep disturbances, no hallucinations, no suicidal thoughts, no mood swings, no memory loss, and no agitation. She reports?fatigue. She reports no fever, no significant weight gain, and no significant weight loss. ?She reports no cough and no shortness of breath. * Medical History:?Problems: G eneralized anxiety disorder, Long-term drug therapy, Mild recurrent major depression, ,. * Social History:?Migrated Social History:?Migrated Social History: Alcohol Intake: None 10/21/2023,Tobacco Years: Never smoker 10/21/2023. ???Drug/Alcohol:?Do you smoke marijuana?: Denies. Do you drink alcohol?: No. * Medications:?Taking Fluticas one Propionate Diskus 50 MCG/ACT Aerosol Powder Breath Activated Inhalation , Notes to Pharmacist: *[facility] for eRx and Interaction Alerts*, Taking ALPRAZolam 0.5 MG Tablet Oral , Taking Levothyroxine Sodium 88 MCG Tablet Oral , Taking Lisinopril 30 MG Tablet Oral , Taking Omeprazole 20 MG Capsule Delayed Release Oral , Not-Taking Naproxen 500 MG Tablet Oral , Medication List reviewed and reconciled with the patient * Allergies:?SULFA (SULFONAMID E ANTIBIOTICS): Allergy - Onset Date 10/21/2023. Objective: * Vitals:?BP:126/83mm Hg, HR:8 9/min, Wt:199.8lbs, Wt-k.63 kg, Ht: 69.00 in, Ht-cm: 175.26 cm, BMI:29.5Index, Body Surface Area: 2.1. * Examination: ???Psychiatry: ?Appearance:?well-groomed, well-nourished, appears stated age.?Abnormal body movements:?none.?Affect / mood:?appropriate, full range.?Aggression:?low.?Anger control:?good.?Attention:?good.?Attitude:?cooperative.?Homicidal ideation:?none.?Suicidal ideation:?none.?Memory status:?no impairment noted.?Degree of awareness of surroundings:?within normal limits.?Delusions:?no.?Hallucinations:?no.?Impulse control:?good.?Insight:?good.?Intellectual functioning:?average.?Comprehension - Intellectual function:?average.?Judgement:?good.?Orientation:?awake, alert and oriented x 3.?Perceptual disorders:?no perceptual disorder noted.?Psychomotor activity:?within normal range.?Speech / language:?appropriate pitch/modulation, clear and coherent, normal rate, volume, and articulation (RVR), proper grammar used.?Thought content:?appropriate.?Thought process:?intact.? 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 1. Generalized anxiety disor janeen?- presently taking Alprazolam 0.5 mg- 1.5 tab - 4x day,? hx antidepressants and made sick no early refills on control substance and local pharmacy in [place] and 30 days at a time on refills Discussed and educated pt regarding benzodiazepines are generally not intended for prolonged use and that use can cause tolerance, dependence, depression, and associated memory issues including dementias (this list is not exhaustive). Benzodiazepine use is generally not recommended concurrently with pain medications and/or other controlled substances due to increased risks of profound sedation, respiratory depression, coma, and even . They are not to be used with any alcohol, as this combination can also be lethal. Patient was provided caution patient reported no computer at home 2. Mild recurrent major depression?- Medication Management and Follow-Up- Plan:- Schedule follow-up appointments every 2-3 months to monitor the patient's response to the medication regimen.- Reinforce the importance of avoiding recreational drug use due to potential neurotoxicity and interactions with prescribed medications. 3. Long-term drug therapy Plan: * Treatment: * Labs:? * ?Lab: UDT (Collection Da te & Time - 01/13/2024) ? Value Reference Range ?THC NEG 0 - 50 ng/ml * ?Cocaine NEG 0 - 300 ng/ml * ?Amphetamine NEG 0 - 1000 ng /ml * ?Buprenorphine (BUP) NEG 0 - 10 ng/ml * ?Secobarbital (Bar) NEG 0 - 300 ng/ml * ?Oxazepam (BZO) POS 0 - 300 ng/ml * ?3-zhlasmzggb-6,5-vzhzrdfx-8,3-diphenylpyrrolidine (EDDP) NEG 0 - 300 ng/ml * ?Methamphetamine (MET) NEG 0 - 1000 ng/ml * ?Methylenedioxymethamphetamine (MDMA) NEG 0 - 500 ng/ml * ?Morphine (MOP 300/[id number]) NEG 0 - 300 ng/ml * ?Methadone (MTD) NEG 0 - 300 ng/ml * ?Phencyclidine (PCP) NEG 0 - 25 ng/ml * ?Propoxyphene (PPX) NEG 0 - 300 ng/ml * ?Nortriptyline (TCA) NEG 0 - 1000 ng/ml * ?Oxycodone NEG 0 - 300 ng/ml * Procedure Codes:?50712 DRUG TST PRSMV READ INSTRMNT ASSTD DIR OPT OBS, G2211 VISIT COMPLEXITY INHERENT TO ONGOING CARE RELATED TO A PATIENT'S SINGLE, SERIOUS CONDITION OR A COMPLEX CONDITION * Follow Up:?3 Months (Reason: f/u anxiety and rx) * Billing Information: * Visit Code:? 65436 OFFICE OUTPATIENT VISIT 25 MINUTES DETAILED HISTORY AND EXAM/MODERATE MEDICAL DECISION MAKING. * Procedure Codes:? 12667 DRUG TST PRSMV READ INSTRMNT ASSTD DIR OPT OBS. G2211 VISIT COMPLEXITY INHERENT TO ONGOING CARE RELATED TO A PATIENT'S SINGLE, SERIOUS CONDITION OR A COMPLEX CONDITION. * Sign off status: Completed true * Provider:?ALLAN MACDONALD Date:? 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 History and Physical Notes * HPI (History of Present Illness) Category Sub-Category Detail Notes Category Not es History of Presenting Problem Generalized Anxiety DisorderReported by patient.Onset/Timing: as long as patient can remember; since childhood Severity: moderate Context: depression Modifying Factors: psychotropic medication Associated Symptoms: no twitching; difficulty controlling worry; fatigue; no panic attacks Notes: brother n law stress and neighbor stress Follow up depression, anxiety chronic stince last visit reported I have had couple major stressors goign on lately, no walker now and much better, I have issue with neighbor I live in town [place] and she throw thigns at my rebollar and bang on floor 8 hours straight I try to be nice to her, she will cuss me out, I went in house and she will pound on my door, I start to feel bad and not do anything about it when she say she does not know why she acts that way, she takes over my parking space and I asked about her intentions since she is not using her garage and it is an inconvience for her to use her garage and I dread to call land lord or police and unsure why I can not do it, I been there 13 years, I can not sleep last 4 nights I can not I was sleeping fine before all this,and they look in my windows and stand on my sidewalks 4 am and I am stress out. appetite fine, I worry about everything and if I have nothing to worry about I will find something, with situation I been feeling stress and get to me, I have no panic attacks I felt uncomfortable, I been helping local [employer], no domo, no psychosis, no delusions, no paranoia, motivation and interest little better trying to do things, concentration and focus no issues, energy ok I do not do a lot, sister terminally ill and her been putting sexual things towards me and he is a jerk, he will say things to me and makes me uncomfortable, all stressing me, little more anxiety not anymor edepression, no agitation 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, I used eye drops and the specialist listen to me I was allergic to them and burn when went to bathroom and I feel all of it r/t eye drop, all stopped when stopped eye drops, I felt like electric smell in nose I had with them hx PTSD- family life dad was verbal abusive and leave mom, I was not close to my dad, No nightmares or flashbacks, sister terminal breast to bone she is 70 years old I was with [employer] and after quit job I have not 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 I feel best decision denies SI/HI no plans or intent no past attempts no FH, no thoughts harm to self or others, no self cutting or self harm, no past psychiatric hospital, no weapons in home, ETOH- denies smoking- denies labs- recently in hospital and see PCP 11/30 drugs- denies presently taking Alprazolam 0.5 mg- 1.5 tab - 4x day x 25 years ,hx antidepressants and made sick reported COVID vaccine x 4 Major Depressive DisorderReported by patient.Onset/Timing: as long as patient can remember Severity: mild Context: history of depression Associated Symptoms: no difficulty concentrating; no irritability; no agitation; no change in appetite; no weight loss; weight gain; no feelings of hopelessness; no feelings of helplessness; no inappropriate guilt; participates in usual acitivities; no suicidal ideations; sleep disturbances; no excessive sleeping; no hallucinations; no delusions; fatigue Domo Reported by patient.Notes:denies Psychosis Reported by patient.Notes:denies Psychotherapy InterventionReported by patient.Notes:hx refer to [facility] rx hx Alprazolam 0.5 mg 1.5 tab - 4x day, Lexapro 5 mg in evening, hx antidepressants and made sick Examination Category Sub-Category Detail Notes Category Not es Psychiatry Appearance: well-groomed, we ll-nourished, appears stated age Attitude: cooperative Psychomotor activity: within normal rang e Abnormal body movements: none Attention: good Degree of awareness of surroundings: wit hin normal limits Orientation: awake, alert and dajuan ented x 3 Affect / mood: appropriate, full ra nge Speech / language: appropriate pitch/mo dulation, clear and coherent, normal rate, volume, and articulation (RVR), proper grammar used Insight: good Judgement: good Thought process: intact Thought content: appropriate Perceptual disorders: no perceptual diso rder noted Aggression: low Anger control: good Suicidal ideation: none Homicidal ideation: none Intellectual functioning: average Impulse control: good Memory status: no impairment noted Delusions: no Hallucinations: no Comprehension - Intellectual function: a verage
--- OUTSIDE RECORDS SUMMARY | 2024-06-08 18:17 | XMS_ITS ---
Author Organization [facility] [employer] Address [address] [place] [address] Care Team Providers Care Form Designer Name Role Phone Yazmin Kelley Primary Care Provider Venita Owens Unavailable [phone] Allergies Allergen (clinical drug ingredient) Drug/Non Drug Allergy documented on EMR Reaction Allergy Type Onset Date Status Substance with sulfonamide structure and antibacterial mechanism of action (substance) SULFA (SULFONAMIDE ANTIBIOTICS) (uncoded) Unknown Allergy 10/21/2023 Active Results Component Value Reference Range Notes UDT Reviewed date:04/13/2024 10:59:38 AM Interpretation: Performing Lab: Notes/Report: THC N 0 - 50 ng/ml Cocaine N 0 - 300 ng/ml Amphetamine N 0 - 1000 ng/ml Buprenorphine (BUP) N 0 - 10 ng/ml Secobarbital (Bar) N 0 - 300 ng/ml Oxazepam (BZO) P 0 - 300 ng/ml 5-slrugmdwcf-6,1-mpckjebt-6,3-diphenylpyrrolidine (JOEY P) N 0 - 300 ng/ml Methamphetamine (MET) N 0 - 1000 ng/ml Methylenedioxymethamphetamine (MDMA) N 0 - 500 ng/ml Morphine (MOP 300/XSO8002) N 0 - 300 ng/ml Methadone (MTD) N 0 - 300 ng/ml Phencyclidine (PCP) N 0 - 25 ng/ml Propoxyphene (PPX) N 0 - 300 ng/ml Nortriptyline (TCA) N 0 - 1000 ng/ml Oxycodone N 0 - 300 ng/ml REASON FOR VISIT f/u rx Medications Medication SIG (Take, Route, Frequency, Duration) Notes Start Date End Date Status Levothyroxine Sodium 88 MCG Oral 10/21/2023 Active Lisinopril 30 MG Oral 10/21/2023 Ac tive Fluticasone Propionate Diskus 50 MCG/ACT Inhalation *Reorder from [facility] for eRx and Interaction Alerts* 10/21/2023 Active Naproxen 500 MG Oral 10/21/2023 Not -Taking ALPRAZolam 0.5 MG 1 tablet four times a day and 0.5 tabs bedtime Oral 1 tablet four times a day and 0.5 tabs bedtime for 30 days 1 tablet four times a day and 0.5 tabs bedtime 04/13/2024 Active Omeprazole 20 MG Oral 10/21/2023 Ac tive Social History Sex Assigned At : Social History Observation Description Sex Assigned At Female Vital Signs Respiratory Rate 16 /min 04/13/2024 Height 69.00 in 04/13/2024 Weight 198 lbs 04/13/2024 BMI 29.24 kg/m2 04/13/2024 Height-cm 175.26 cm 04/13/2024 Weight-kg 89.81 kg 04/13/2024 Encounters Encounter Location Date Provider Diagnosis [facility] [employer] [facility] [employer] [address] [address] 04/13/2024 Venita Gamble Major depressive disorder, recurrent, mild F33.0 ; Generalized anxiety disorder F41.1 and Other [facility] (current) drug therapy Z79.899 Assessments Encounter Date Diagnosis (ICD Code) Assessment Notes Treatment Notes Treatment Clinical Notes Section Notes 04/13/2024 Major depressive disorder, recurrent, mild (ICD-10 - F33.0) 1. Generalized anxiety disorder - presently taking Alprazolam 0.5 mg- 1.5 tab - 4x day, hx antidepressants and made sick no early refills on control substance and local pharmacy in [place] and 30 days at a time on refills seen GI recently Discussed and educated pt regarding benzodiazepines are [...] with prescribed medications. 3. Long-term drug therapy 04/13/2024 Generalized anxiety disorder (ICD-10 - F41.1) 1. Generalized anxiety disorder - presently taking Alprazolam 0.5 mg- 1.5 tab - 4x day, hx antidepressants and made sick no early refills on control substance and local pharmacy in [place] and 30 days at a time on refills seen GI recently Discussed and educated pt regarding benzodiazepines are [...] with prescribed medications. 3. 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 Generalized anxiety disorder - presently taking Alprazolam 0.5 mg- 1.5 tab - 4x day, hx antidepressants and made sick no early refills on control substance and local pharmacy in [place] and 30 days at a time on refills seen GI recently Discussed and educated pt regarding benzodiazepines are [...] and 0.5 tabs bedtime for 30 days 04/13/2024 1 tablet four times a day and 0.5 tabs bedtime Next Appt Details Follow Up: 3 Months, Reason: f/u anxiety Provider Name:Venita Gabmle , 06/17/2024 08:45:00 AM, [address], [place] [address], [place], [address], Provider Name:Venita Gamble , 10/11/2024 09:30:00 AM, [address], [place] [address], [place], [address], Progress Notes * PEPE WALKERB: (69 yo F)Acc No.[id number]:04/13/2024 Patient:HÉCTOR CORDOVA Provider:?VENITA GAMBLE PMHNP :1955???Age:69 Y???Sex:Female D ate:04/13/2024 Address:[address] [place], [place] [address] Pcp:Yazmin LILLY Subjective: * Chief Complaints: * ???1. F/u rx. * HPI: ???Depression Screening:?TIAN-7 (2018 Edition)?Feeling nervous, anxious, or on edge?Several days,?Not being able to stop or control worrying?Several days,?Worrying too much about different things?Several days,?Trouble relaxing?Several days,?Being so restless that it is hard to sit still?Not at all,?Becoming easily annoyed or irritable?Not at all,?Feeling afraid as if something awful might happen?Not at all,?Total TIAN-7 Score?4,?If you checked any problems, how difficult have they made it for you to do your work, take care of things at home, or get along with other people??Somewhat difficult,?Interpretation of Total?(0 to 4) No Anxiety.?Depression screening:?PHQ-9?Little interest or pleasure in doing things?Several days,?Feeling down, depressed, or hopeless?Several days,?Trouble falling or staying asleep, or sleeping too much?Several days,?Feeling tired or having little energy?Several days,?Poor appetite or overeating?Several days,?Feeling bad about yourself or that you are a failure, or have let yourself or your family down?Several days,?Trouble concentrating on things, such as reading the newspaper or watching television?Not at all,?Moving or speaking so slowly that other people could have noticed; or the opposite, being so fidgety or restless that you have been moving around a lot more than usual?Not at all,?Thoughts that you would be better off or of hurting yourself in some way?Not at all,?Total Score 6,?Interpretation?Mild Depression.?Intervention?Depression Screening Findings?Positve,?Follow-Up for Depression?Mental health treatment assessment, Patient follow-up to return when and if necessary,?Suicide Risk Assessment Performed? ,?Additional Evaluation for Depression?Psychiatric interview and evaluation,?Name of the standardized tool used for adult depression screening:?Patient Health Questionnaire (PHQ-9).?History of Presenting Problem:? Follow up depression, anxiety chronic stince last visit reported I was in ER x2 last month for UTI and antibiotics and also not eating best and diarrhea, then not going to bathroom for a week and blood when I did and had hemorroids when I went back to ER. I am feeling better this week, I am usually alone for holidays and depression and anxiety moderate, sister was in hospital last week for surgery and she has trerminal cancer and had gall bladder removed no stone, I talk to her, she is not very nice to me, she did awful things to me I still worry about her, we did not talk for 5 years until after mom passed, I feel my depression and anxiety when I am sick gets worst and I am alone and no one to call I drive self to ER and when I feel better it also gets better, sleep fine, appetite beter this week, I had problems with neighbors last time I was here and I called [employer] and put everything in writing and they called them and things got worst they do it more then I called police and it got worst, it varies n the day and no one take care the problem, I do not want to have to move, concentration and focus no issues, energy ok,?no domo, no psychosis, no delusions, no paranoia, no agitation? no irritable, I feel not hopeless or helpless, I feel rx doing fine, no SI/HI,? ?? 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 * ROS:?Patient reports?eye disease/injury?but reports wears glasses/contact lenses;?need cataract surgery. She reports?ankle swelling (foot r/t leg)?but reports no chest pain, no arm pain on exertion, no shortness of breath when walking, no shortness of breath when lying down, no palpitations, and no known heart murmur. She reports?GERD?but reports no abdominal pain, no nausea, no vomiting, no constipation, normal appetite, and no diarrhea;?hernia hemmoroids hx Divtolotisis. She reports?arthralgias/joint pain (hx left leg) and no difficulty walking? ?She reports no weakness and no gait dysfunction? but reports no loss of consciousness, no numbness, no seizures, no dizziness, no migraines, and no tremor. She reports mild depression and anxiety?but reports no sleep disturbances, no hallucinations, no suicidal thoughts, no mood swings, no memory loss, and no agitation. She reports no fatigue. She reports no fever, no significant weight gain, and no significant weight loss. ?She reports no cough and no shortness of breath. * Medical History:?Problems: G eneralized anxiety disorder, Long-term drug therapy, Mild recurrent major depression, ,. * Surgical History:?Removal of gallbladder (98460) , Hysterectomy (28767) , Any surgical history . * Hospitalization/Major Diagno stic Procedure:?UTI . * Social History:?Migrated Social History:?Migrated Social History: Alcohol Intake: None 10/21/2023,Tobacco Years: Never smoker 10/21/2023. * Medications:?Taking Fluticas one Propionate Diskus 50 MCG/ACT Aerosol Powder Breath Activated Inhalation , Notes to Pharmacist: *Reorder from [facility] for eRx and Interaction Alerts*, Taking Levothyroxine Sodium 88 MCG Tablet Oral , Taking Lisinopril 30 MG Tablet Oral , Taking Omeprazole 20 MG Capsule Delayed Release Oral , Taking ALPRAZolam 0.5 MG Tablet 1 tablet four times a day and 0.5 tabs bedtime Oral 1 tablet four times a day and 0.5 tabs bedtime , Notes to Pharmacist: 1 tablet four times a day and 0.5 tabs bedtime, Notes: 1 tablet four times a day and 0.5 tabs bedtime, Not-Taking Naproxen 500 MG Tablet Oral , Medication List reviewed and reconciled with the patient * Allergies:?SULFA (SULFONAMID E ANTIBIOTICS): Allergy - Onset Date 10/21/2023. Objective: * Vitals:?RR:16/min, Wt:198lbs , Wt-k.81 kg, Ht: 69.00 in, Ht-cm: 175.26 cm, BMI:29.24Index, Body Surface Area: 2.09. * Examination: ???Psychiatry: ?Appearance:?well-groomed, well-nourished, appears stated [...] - F33.0 (Primary)???2.?Generalized anxiety disorder - F41.1???3.?Other [facility] (current) drug therapy - Z79.899??? 1. Generalized anxiety disor janeen - presently taking Alprazolam 0.5 mg- 1.5 tab - 4x day, hx antidepressants and made sick no early refills on control substance and local pharmacy in [place] and 30 days at a time on refills seen GI recently? Discussed and educated pt regarding benzodiazepines are [...] UDT (Collection Da te & Time - 04/13/2024) ? Value Reference Range ?THC N 0 - 50 ng/ml * ?Cocaine N 0 - 300 ng/ml * ?Amphetamine N 0 - 1000 ng /ml * ?Buprenorphine (BUP) N 0 - 10 ng/ml * ?Secobarbital (Bar) N 0 - 300 ng/ml * ?Oxazepam (BZO) P 0 - 300 ng/ml * ?3-nicjgwdsjt-7,8-vbipqwug-5,3-diphenylpyrrolidine (EDDP) N 0 - 300 ng/ml * ?Methamphetamine (MET) N 0 - 1000 ng/ml * ?Methylenedioxymethamphetamine (MDMA) N 0 - 500 ng/ml * ?Morphine (MOP 300/[id number]) N 0 - 300 ng/ml * ?Methadone (MTD) N 0 - 300 ng/ml * ?Phencyclidine (PCP) N 0 - 25 ng/ml * ?Propoxyphene (PPX) N 0 - 300 ng/ml * ?Nortriptyline (TCA) N 0 - 1000 ng/ml * ?Oxycodone N 0 - 300 ng/ml * Procedure Codes:?09639 DRUG TST PRSMV READ INSTRMNT ASSTD DIR OPT OBS, 71799 BEHAV ASSMT W/SCORE & DOCD/STAND INSTRUMENT, 96730 BEHAV ASSMT W/SCORE & DOCD/STAND INSTRUMENT, G2211 VISIT COMPLEXITY INHERENT TO ONGOING CARE RELATED TO A PATIENT'S SINGLE, SERIOUS CONDITION OR A COMPLEX CONDITION * Follow Up:?3 Months (Reason: f/u anxiety) * Billing Information: * Visit Code:? 20990 OFFICE OUTPATIENT VISIT 25 MINUTES DETAILED HISTORY AND EXAM/MODERATE MEDICAL DECISION MAKING. * Procedure Codes:? 48857 DRUG TST PRSMV READ INSTRMNT ASSTD DIR OPT OBS. 91480 BEHAV ASSMT W/SCORE & DOCD/STAND INSTRUMENT. 52914 BEHAV ASSMT W/SCORE & DOCD/STAND INSTRUMENT. G2211 VISIT COMPLEXITY INHERENT TO ONGOING CARE RELATED TO A PATIENT'S SINGLE, SERIOUS CONDITION OR A COMPLEX CONDITION. * [employer] Sign off status: Completed true * Provider:?ALLAN MACDONALD Date:? Generated for Winston will/Inder/eTenedina on:?06/08/2024 06:16 PM [employer] History and Physical Notes * HPI (History of Present Illness) Category Sub-Category Detail Notes Category Not es History of Presenting Problem Follow up depression, anxiety chronic stince last visit reported I was in ER x2 last month for UTI and antibiotics and also not eating best and diarrhea, then not going to bathroom for a week and blood when I did and had hemorroids when I went back to ER. I am feeling better this week, I am usually alone for holidays and depression and anxiety moderate, sister was in hospital last week for surgery and she has trerminal cancer and had gall bladder removed no stone, I talk to her, she is not very nice to me, she did awful things to me I still worry about her, we did not talk for 5 years until after mom passed, I feel my depression and anxiety when I am sick gets worst and I am alone and no one to call I drive self to ER and when I feel better it also gets better, sleep fine, appetite beter this week, I had problems with neighbors last time I was here and I called [employer] and put everything in writing and they called them and things got worst they do it more then I called police and it got worst, it varies n the day and no one take care the problem, I do not want to have to move, concentration and focus no issues, energy ok, no domo, no psychosis, no delusions, no paranoia, no agitation no irritable, I feel not hopeless or helpless, I feel rx doing fine, no SI/HI, I sometimes do not go though all Xanax pills in a month and refill a week later, HX I had to see employment training specialist I had a spray on nose for [...] job I have 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, [...] made sick reported COVID vaccine x 4 Domo Reported by patient.Notes:denies Psychosis Reported by patient.Notes:denies Psychotherapy InterventionReported by patient.Notes:hx refer to [facility] rx hx Alprazolam 0.5 mg 1.5 tab - 4x day, Lexapro 5 mg in evening, hx antidepressants and made sick Pt was seen today and Urine drug screen was done Depression screening PHQ-9 Little interest or pleasure in doing things: Several days Feeling down, depressed, or hopeless: Se veral days Trouble falling or staying asleep, or sl eeping too much: Several days Feeling tired or having little energy: S everal days Poor appetite or overeating: Several day s Feeling bad about yourself o r that you are a failure, or have let yourself or your family down: Several days Trouble concentrating on thi ngs, such as reading the newspaper or watching television: Not at all Moving or speaking so slowly that other people could have noticed; or the opposite, being so fidgety or restless that you have been moving around a lot more than usual: Not at all Thoughts that you would be b alvaro off or of hurting yourself in some way: Not at all Total Score: 6 Interpretation: Mild Depression Intervention Depression Screening Findings: P ositve Follow-Up for Depression: [facility] treatment assessment, Patient follow-up to return when and if necessary Suicide Risk Assessment Performed: Additional Evaluation for De pression: Psychiatric interview and evaluation Name of the standardized too l used for adult depression screening:: Patient Health Questionnaire (PHQ-9) Depression Screening TIAN-7 (2018 Edition) Feelin g nervous, anxious, or on edge: Several days Not being able to stop or control worryi ng: Several days Worrying too much about different things : Several days Trouble relaxing: Several days Being so restless that it is hard to sit still: Not at all Becoming easily annoyed or irritable: No t at all Feeling afraid as if something awful rebecca ht happen: Not at all Total TIAN-7 Score: 4 If you checked any problems, how difficult have they made it for you to do your work, take care of things at home, or get along with other people?: Somewhat difficult Interpretation of Total: (0 to 4) No Anx iety Examination Category Sub-Category Detail Notes Category Not [...]
--- OUTSIDE RECORDS SUMMARY | 2024-06-08 18:17 | XMS_ITS | Patient Health Record ---
Author Organization [facility] [place] Address [address] [place] [address] Care Team Providers Care Bankruptcy Manager Name Role Phone Yazmin Kelley Primary Care Provider Venita Owens Unavailable [phone] Migration, Provider Unavailable Unavailable Lenny Parikh Unavailable [phone] Allergies Allergen (clinical drug ingredient) Drug/Non Drug Allergy documented on EMR Reaction Allergy Type Onset Date Status Substance with sulfonamide structure and antibacterial mechanism of action (substance) SULFA (SULFONAMIDE ANTIBIOTICS) (uncoded) Unknown Allergy 10/21/2023 Active Results Component Value Reference Range Notes DRUG SCREEN, 14 DRUGS (DETEC TIMED), URINE Reviewed date:10/21/2023 12:00:00 AM Interpretation: Performing Lab: Notes/Report: Amphetamine negative Barbiturates negative Benzodiazipine positive Buprenorphine negative Cocaine negative MDMA/Ectasy negative Methadone negative Methamphetamine negative Morphine negative Oxycodone negative Phenocyclidine negative THC negative UDT Reviewed date:01/13/2024 10:14:00 AM Interpretation: Performing Lab: Notes/Report: THC NEG 0 - 50 ng/ml Cocaine NEG 0 - 300 ng/ml Amphetamine NEG 0 - 1000 ng/ml Buprenorphine (BUP) NEG 0 - 10 ng/ml Secobarbital (Bar) NEG 0 - 300 ng/ml Oxazepam (BZO) POS 0 - 300 ng/ml 3-ktkasujpym-6,0-laesnzqh-1, 3-diphenylpyrrolidine (EDDP) NEG 0 - 300 ng/ml Methamphetamine (MET) NEG 0 - 1000 ng/ml Methylenedioxymethamphetamine (MDMA) NEG 0 - 500 ng/ml Morphine (MOP 300/[id number]) NEG 0 - 300 ng/ml Methadone (MTD) NEG 0 - 300 ng/ml Phencyclidine (PCP) NEG 0 - 25 ng/ml Propoxyphene (PPX) NEG 0 - 300 ng/ml Nortriptyline (TCA) NEG 0 - 1000 ng/ml Oxycodone NEG 0 - 300 ng/ml UDT Reviewed date:04/13/2024 10:59:38 AM Interpretation: Performing Lab: Notes/Report: THC N 0 - 50 ng/ml Cocaine N 0 - 300 ng/ml Amphetamine N 0 - 1000 ng/ml Buprenorphine (BUP) N 0 - 10 ng/ml Secobarbital (Bar) N 0 - 300 ng/ml Oxazepam (BZO) P 0 - 300 ng/ml 3-vmrpbtliyt-9,0-rnsuyeej-2, 3-diphenylpyrrolidine (EDDP) N 0 - 300 ng/ml Methamphetamine (MET) N 0 - 1000 ng/ml Methylenedioxymethamphetamine (MDMA) N 0 - 500 ng/ml Morphine (MOP 300/[id number]) N 0 - 300 ng/ml Methadone (MTD) N 0 - 300 ng/ml Phencyclidine (PCP) N 0 - 25 ng/ml Propoxyphene (PPX) N 0 - 300 ng/ml Nortriptyline (TCA) N 0 - 1000 ng/ml Oxycodone N 0 - 300 ng/ml Reason For Referral No Information Medications Medication SIG (Take, Route, Frequency, Duration) Notes Start Date End Date Status Propranolol HCl 10 MG 1 tablet on an empty stomach Orally twice a day for 30 days Active Ramelteon 8 MG 1 tablet at bedtime as needed Orally Once a day for 30 days 05/21/2024 06/20/2024 Active Amoxicillin-Pot Clavulanate 875-125 MG TAKE 1 TABLET [...] Propionate Diskus 50 MCG/ACT Inhalation *Reorder from [employer] for eRx and Interaction Alerts* 10/21/2023 Active Social History Sex Assigned At : Social History Observation Description Sex Assigned At Female Problems Problem Type SNOMED Code ICD Code Onset Dates Problem Status W/U Status Risk Notes Problem Mild recurrent major depression (12401000) Major depressive disorder, recurrent, mild (F33.0) 4 Active confirmed Problem Generalized anxiety disorder (11288149) Generalized anxiety disorder (F41.1) 4 Active confirmed Problem 0167956 Primary insomnia (F51.01) Active confirmed Problem Long-term current use of drug therapy (188921124) Other meterman (current) drug therapy (Z79.899) 4 Active confirmed Vital Signs Heart Rate 122 /min 05/21/2024 Respiratory Rate 16 /min 04/13/2024 Height-cm 175.26 cm 05/21/2024 Blood pressure diastolic 94 mm Hg 05/21/2024 Weight-kg 89.9 kg 05/21/2024 Height 69.00 in 05/21/2024 Blood pressure systolic 132 mm Hg 05/21/2024 Weight 198.2 lbs 05/21/2024 BMI 29.27 kg/m2 05/21/2024 Encounters Encounter Location Date Provider Diagnosis [facility] [address] [facility] [address] [address] 10/21/2023 Venita Gamble Generalized anxiety disorder F41.1 ; Other meterman (current) drug therapy Z79.899 and Major depressive disorder, recurrent, mild F33.0 [facility] [address] [facility] [address] [place] [address] 01/13/2024 Venita Gamble Major depressive disorder, recurrent, mild F33.0 ; Generalized anxiety disorder F41.1 and Other longterm (current) drug therapy Z79.899 [place] [facility] [address] [facility] [address] [facility] [address] [place] [address] 04/13/2024 Venita Gamble Major depressive disorder, recurrent, mild F33.0 ; Generalized anxiety disorder F41.1 and Other meterman (current) drug therapy Z79.899 [employer] [facility], [facility] [address] [facility] [address] [place] [address] 05/21/2024 Lenny Clubb Primary insomnia F51.01 and TIAN (generalized anxiety disorder) F41.[address] [address] 10/17/[address] [address] 10/25/[address] [address] 10/26/[address] [address] 11/24/2023 Venita Gamble Assessments Encounter Date Diagnosis (ICD Code) Assessment Notes Treatment Notes Treatment Clinical Notes Section Notes 10/21/2023 Major depressive disorder, recurrent, mild (ICD-10 - F33.0) 10/21/2023 Generalized anxiety disorder (ICD-10 - F41.1) 10/21/2023 Other meterman (current) drug therapy (ICD-10 - Z79.899) 01/13/2024 Major depressive disorder, recurrent, mild (ICD-10 - F33.0) 1. Generalized anxiety disorder - presently taking Alprazolam 0.5 mg- 1.5 tab - 4x day, hx antidepressants and made sick no early refills on control substance and local pharmacy in [place] and 30 days at a time on [...] on control substance and local pharmacy in [place] and 30 days at a time on [...] prescribed medications. 3. Long-term drug therapy 04/13/2024 Major depressive disorder, recurrent, mild (ICD-10 - F33.0) 1. Generalized anxiety disorder - presently taking Alprazolam 0.5 mg- 1.5 tab - 4x day, hx antidepressants and made sick no early refills on control substance and local pharmacy in [place] and 30 days at a time on [...] with prescribed medications. 3. Long-term drug therapy 05/21/2024 Primary insomnia (ICD-10 - F51.01) 1. Anxiety - Patient reports increased anxiety for past 1.5 weeks, with restlessness and difficulty sleeping. - History of severe anxiety episodes in the past. - Plan: a. Start propranolol twice daily for internal restlessness. b. Encourage non-pharmacologica l interventions: deep breathing, ice cubes, sour candy. [...] twice daily for internal restlessness. b. Encourage non-pharmacologica l interventions: deep breathing, ice cubes, sour candy. [...] she becomes open to it in future. 04/13/2024 Generalized anxiety disorder (ICD-10 - F41.1) 1. Generalized anxiety disorder - presently taking Alprazolam 0.5 mg- 1.5 tab - 4x day, hx antidepressants and made sick no early refills on control substance and local pharmacy in [place] and 30 days at a time on [...] medications. 3. Long-term drug therapy 01/13/2024 Other meterman (current) drug therapy (ICD-10 - Z79.899) 1. Generalized anxiety disorder - presently taking Alprazolam 0.5 mg- 1.5 tab - 4x day, hx antidepressants and made sick no early refills on control substance and local pharmacy in [place] and 30 days at a time on [...] medications. 3. Long-term drug therapy 04/13/2024 Other longterm (current) drug therapy (ICD-10 - Z79.899) 1. Generalized anxiety disorder - presently taking Alprazolam 0.5 mg- 1.5 tab - 4x day, hx antidepressants and made sick no early refills on control substance and local pharmacy in [place] and 30 days at a time on [...] with prescribed medications. 3. Long-term drug therapy 05/21/2024 Other Assessment and plan reviewed with [...] seek emergency services. discussed crisis prevention hotline 378. 1. Anxiety - Patient reports increased anxiety for past 1.5 weeks, with restlessness and difficulty sleeping. - History of severe anxiety episodes in the past. - Plan: a. Start propranolol twice daily for internal restlessness. b. Encourage non-pharmacologica l interventions: deep breathing, ice cubes, sour candy. [...] to it in future. Plan Of Treatment Next Appt Details Provider Name:Venita Gamble , 06/17/2024 08:45:00 AM, [address], [place] [address], [place], [address], Provider Name:Venita Gamble , 10/11/2024 09:30:00 AM, [place], [address], [place], [address], Insurance Providers Payer Name Payer Address Payer Phone Subscriber Number Group Number Insured Name Patient Relationship to Insured Coverage Start Date Coverage End Date [employer] Medicare Replacement/ Advantage - Hmo [address] [address] [place] [address] [id number] HÉCTOR WALKER Self - patient is the insured Medical (General) History Medical History History ICD Code Problems: Generalized anxiety disorder Long-term drug therapy Mild recurrent major depression diverticulosis hernia Surgical History Surgery Date(Month/Year) Removal of gallbladder (03601) Hysterectomy (83869) Any surgical history Hospitalization History Reason Date(Month/Year) UTI
== END 2024-06-01 13:46 | disposition home or self-care (01) ==
PROVIDERS: Emergency Provider Student in an Organized Health Care Education/Training Program; PCP Physician Assistant
DX: F41.9 Anxiety disorder, unspecified (principal); F32.A Depression, unspecified; I12.9 Hypertensive chronic kidney disease with stage 1 through stage 4 chronic kidney disease, or unspecified chronic kidney disease; N18.30 Chronic kidney disease, stage 3 unspecified; E03.9 Hypothyroidism, unspecified; K21.9 Gastro-esophageal reflux disease without esophagitis; K44.9 Diaphragmatic hernia without obstruction or gangrene; Z90.49 Acquired absence of other specified parts of digestive tract; Z90.710 Acquired absence of both cervix and uterus; Z79.899 Other long term (current) drug therapy
CPT/HCPCS: 36415; 80053; 85025; 96361; 96374; 99284; J3360; J7120

== ENCOUNTER 2024-06-10 11:59 | Emergency (ER) | payer MEDICARE, SELFPAY ==
[2024-06-10 12:05] VITALS: BP 148/100; PULSE 120; RESP 20; TEMP 36.4; O2SAT 100
--- NOTE | 2024-06-10 15:46 | ED_ITS ---
HPI - Anxiety General Chief Complaint: Anxiety <Theodora Gates PA-C - Last Filed: 06/10/24 15:55> Stated Complaint: anxiety <Theodora Gates PA-C - Last Filed: 06/10/24 15:55> Time Seen by Provider: 06/10/24 16:14 <Theodora Gates PA-C - Last Filed: 06/10/24 15:55> Focused HPI: 69-year-old female with a history of hypothyroidism, anxiety presents to the emergency department for anxiety. Patient states she has been having debilitating anxiety for 1 month. She has been taking Xanax without improvement. She was seen in our ED on 05/20/2024 for anxiety was given a prescription for hydroxyzine. States she took this a couple times on the 1st day without improvement. She stopped taking it because she was scared to take it because she lives at home by herself and is fearful she is going to have a reaction to it. She states she is so anxious that she is unable to care for herself. She reports decreased p.o. intake but did have oatmeal today. She denies SI or HI, visual or auditory hallucinations. She has an appointment with her psychiatrist on 06/17/2024. She is requesting to be seen by psychiatry. GENERAL: Well-appearing, well-nourished, and in no acute distress. HEAD: Normocephalic, atraumatic. CHEST: Clear to auscultation. ?No respiratory distress. HEART: Regular rate and rhythm.? NEURO: ?Alert and oriented x3. Patient screened in triage and initial orders placed.? ?Additional care and disposition to be based upon?diagnostic testing and treatment. <Theodora Gates PA-C - Last Filed: 06/10/24 15:55> History of Present Illness HPI narrative: Agree with HPI <Fernando Bravo MD - Last Filed: 06/10/24 18:08> Related Data Home Medications: Home Medications ?Medication ?Instructions ?Recorded ?Confirmed ?Last Taken ?Type alprazolam 0.5 mg tablet 0.5 mg PO Q6H 08/23/21 04/01/24 07/18/23 11:00 History levothyroxine 88 mcg tablet 88 mcg PO DAILY 08/23/21 04/01/24 07/18/23 08:00 History (Euthyrox) lisinopril 30 mg tablet 30 mg PO DAILY 08/23/21 04/01/24 07/18/23 08:00 History omeprazole 20 mg capsule,delayed 20 mg PO DAILY 04/14/23 04/01/24 07/18/23 08:00 History release <Theodora Gates PA-C - Last Filed: 06/10/24 15:55> Allergies/Adverse Reactions: Allergies Allergy/AdvReac Type Severity Reaction Status Date / Time Sulfa (Sulfonamide Allergy Swelling Verified 06/01/24 09:50 Antibiotics) sulfamethoxazole (From Allergy Swelling Verified 06/01/24 09:50 Bactrim) of Lip/Tongue/Throat trimethoprim (From Bactrim) Allergy Swelling Verified 06/01/24 09:50 of Lip/Tongue/Throat <Theodora Gates PA-C - Last Filed: 06/10/24 15:55> Review of Systems 2 Review of Systems: All systems reviewed & are unremarkable except as noted in HPI and below <Fernando Bravo MD - Last Filed: 06/10/24 18:08> Constitutional: Constitutional: Reports no additional constitutional complaints <Fernando Bravo MD - Last Filed: 06/10/24 18:08> Cardiovascular: Cardiovascular: Reports no additional cardiovascular complaints <Fernando Bravo MD - Last Filed: 06/10/24 18:08> Respiratory: Respiratory: Reports no additional respiratory complaints < Fernando Bravo MD - Last Filed: 06/10/24 18:08> Gastrointestinal: Gastrointestinal: Reports no additional gastrointestinal complaints <Fernando Bravo MD - Last Filed: 06/10/24 18:08> Psychiatric: Psychiatric: Reports no additional psychiatric complaints < Fernando Bravo MD - Last Filed: 06/10/24 18:08> [facility] Past Medical History Medical History: Medical History Depression Gastroesophageal reflux disease Chronic kidney disease, stage 3 Baseline creatinine is between 1.0 and 1.10. GFR ranges between 50 and 55. Diverticulitis Hypertension Hypothyroidism Hiatal hernia Containing nearly the entire stomach and part of the pancreas. Anxiety <Theodora Gates PA-C - Last Filed: 06/10/24 15:55> Surgical History Surgical History: Surgical History History of colonoscopy History of cholecystectomy History of hysterectomy <Theodora Gates PA-C - Last Filed: 06/10/24 15:55> Family History Family History: Family History Mother Hypertension Sibling Bone cancer <Theodora Gates PA-C - Last Filed: 06/10/24 15:55> Social History Social History: Social History Social History: Surrogate medical decision maker: Lizeth Pena, sibling Code status: Full code. Smoking status: Never smoker Alcohol intake: never Substance use: never Substance use type: does not use Do You Feel Safe in your Home?: Yes Lack of Transportation: No Lack of Food: Never True Current Housing: I Have Housing Concerned About Future Housing: No Difficulty Paying Gas/Electric Bills: No Difficulty Paying for Meds: No Currently Unemployed: No Education: Grade School Difficulty w/ Childcare or Family Care: No Additional living arrangements comments: The patient lives in her own home in [place]. Additional occupation/education comments: Retired. Spiritual care concerns: No <Theodora Gates PA-C - Last Filed: 06/10/24 15:55> Exam 2 Narrative: GENERAL: Well-appearing, well-nourished, and in no acute distress. HEAD: Normocephalic, atraumatic. ENT: Mucous membranes moist. CHEST: Clear to auscultation. No respiratory distress. HEART: Regular rate and rhythm. Normal peripheral pulses. EXTREMITIES: Normal range of motion. No edema. SKIN: Warm, dry, no rash. NEURO: Alert and oriented x3. PSYCH: Anxious, no SI or HI. <Fernando Bravo MD - Last Filed: 06/10/24 18:08> Course Course Emergency Course: Feels improved with Ativan. Discharge with same occasion. <Fernando Bravo MD - Last Filed: 06/10/24 18:08> Vital Signs Vital signs: Vital Signs Temperature 97.5 F L 06/10/24 12:05 Pulse Rate 120 H 06/10/24 12:05 Respiratory Rate 20 06/10/24 12:05 Blood Pressure 148/100 H 06/10/24 12:05 Pulse Oximetry 100 06/10/24 12:05 Oxygen Delivery Room Air 06/10/24 12:05 Temperature 98.1 F 06/10/24 17:44 Pulse Rate 85 06/10/24 17:44 Respiratory Rate 16 06/10/24 17:44 Blood Pressure 117/64 06/10/24 17:44 Pulse Oximetry 99 06/10/24 17:44 Oxygen Delivery Room Air 06/10/24 12:05 <Theodora Gates PA-C - Last Filed: 06/10/24 15:55> Vital Signs Temperature 97.5 F L 06/10/24 12:05 Pulse Rate 120 H 06/10/24 12:05 Respiratory Rate 20 06/10/24 12:05 Blood Pressure 148/100 H 06/10/24 12:05 Pulse Oximetry 100 06/10/24 12:05 Oxygen Delivery Room Air 06/10/24 12:05 Temperature 98.1 F 06/10/24 17:44 Pulse Rate 85 06/10/24 17:44 Respiratory Rate 16 06/10/24 17:44 Blood Pressure 117/64 06/10/24 17:44 Pulse Oximetry 99 06/10/24 17:44 Oxygen Delivery Room Air 06/10/24 12:05 <Fernando Bravo MD - Last Filed: 06/10/24 18:08> MDM - Anxiety Lab Data Result diagrams: 06/10/24 16:04 06/10/24 16:04 <Theodora Gates PA-C - Last Filed: 06/10/24 15:55> Labs: Lab Results 06/10/24 06/10/24 Range/Units 16:04 16:22 WBC 12.7 H (4.5-10.0) K/mm3 RBC 5.25 (4.2-5.4) M/mm3 Hgb 16.3 H (12.0-15.0) g/dL Hct 48.5 H (37.0-47.0) % MCV 92.4 (80-100) fl MCH 31.0 (26-34) pg MCHC 33.6 (32-36) g/dl RDW 13.6 (11.5-14.5) % Plt Count 310 (150-375) k/mm3 MPV 9.9 (7.4-10.4) fl Immature Gran % (Auto) 0.4 (0-0.5) % Neut % (Auto) 76.5 H (45.5-73.1) % Lymph % (Auto) 18.1 L (18.3-44.2) % Willacy % (Auto) 4.4 (2.6-8.5) % Eos % (Auto) 0.2 (0-4.4) % Baso % (Auto) 0.4 (0.2-1.2) % Lymph # (Auto) 2.30 (0.9-3.2) K/mm3 Willacy # (Auto) 0.6 (0.1-0.6) K/mm3 Eos # (Auto) 0.0 (0-0.3) K/mm3 Baso # (Auto) 0.1 (0.0-0.1) K/mm3 Abs Immat Gran (auto) 0.05 H (0.00-0.031) K/mm3 Absolute Neuts (auto) 9.7 H (1.3-6.7) K/mm3 Absolute Nucleated RBC 0.000 (0.0-0.012) K/mm3 Nucleated RBC % 0.0 (0.0-0.2) % Sodium 137 (137-145) mmol/L Potassium 3.9 (3.4-5.0) mmol/L Chloride 107 (98-107) mmol/L Carbon Dioxide 25 (22-30) mmol/L Anion Gap 5 (4-12) mmol/L BUN 15 D (7-17) mg/dL Creatinine 1.20 H (0.7-1.0) mg/dL Estim Creat Clear Calc 48 ml/min Estimated GFR 45 L (59 - ) Glucose 99 (65-110) mg/dL Calcium 10.3 H (8.4-10.2) mg/dL Total Bilirubin 0.6 (0.2-1.3) mg/dL AST 28 (14-36) U/L ALT 28 (6-35) U/L Alkaline Phosphatase 135 H (38-126) U/L Total Protein 8.0 (6.3-8.2) g/dL Albumin 4.7 (3.5-5.1) g/dL TSH 2.500 (0.465-4.680) uIU/mL Urine Color Yellow (Yellow) Urine Appearance Clear (Clear) Urine pH 5.5 (5.0-9.0) Ur Specific Tiro 1.015 (1.001-1.035) Urine Protein Negative (Negative) mg/dL Urine Glucose (UA) Negative (Negative) mg/dL Urine Ketones 2+ H (Negative) mg/dL Ur Blood (Man) Negative (Negative) Urine Nitrate Negative (Negative) Urine Bilirubin Negative (Negative) Urine Urobilinogen 0.2 (<2.0) mg/dL Leukocyte Esterase Rfl Negative (Negative) HAILEE/UL Urine Opiates Screen Negative (Negative) Urine Methadone Screen Negative (Negative) Ur Barbiturates Screen Negative (Negative) Ur Phencyclidine Scrn Negative (Negative) Ur Amphetamine Screen Negative (Negative) U Benzodiazepines Scrn Positive A (Negative) Urine Cocaine Screen Negative (Negative) U Cannabinoids Screen Negative (Negative) Ethyl Alcohol < 10 (<10) mg/dL Influenza A (RT-PCR) Negative (Negative) Influenza B (RT-PCR) Negative (Negative) RSV (RT-PCR) Negative (Negative) SARS-CoV-2 RNA (RT-PCR) Negative (Negative) <Theodora Gates PA-C - Last Filed: 06/10/24 15:55> Lab Results 06/10/24 06/10/24 Range/Units 16:04 16:22 WBC 12.7 H (4.5-10.0) K/mm3 RBC 5.25 (4.2-5.4) M/mm3 Hgb 16.3 H (12.0-15.0) g/dL Hct 48.5 H (37.0-47.0) % MCV 92.4 (80-100) fl MCH 31.0 (26-34) pg MCHC 33.6 (32-36) g/dl RDW 13.6 (11.5-14.5) % Plt Count 310 (150-375) k/mm3 MPV 9.9 (7.4-10.4) fl Immature Gran % (Auto) 0.4 (0-0.5) % Neut % (Auto) 76.5 H (45.5-73.1) % Lymph % (Auto) 18.1 L (18.3-44.2) % Willacy % (Auto) 4.4 (2.6-8.5) % Eos % (Auto) 0.2 (0-4.4) % Baso % (Auto) 0.4 (0.2-1.2) % Lymph # (Auto) 2.30 (0.9-3.2) K/mm3 Willacy # (Auto) 0.6 (0.1-0.6) K/mm3 Eos # (Auto) 0.0 (0-0.3) K/mm3 Baso # (Auto) 0.1 (0.0-0.1) K/mm3 Abs Immat Gran (auto) 0.05 H (0.00-0.031) K/mm3 Absolute Neuts (auto) 9.7 H (1.3-6.7) K/mm3 Absolute Nucleated RBC 0.000 (0.0-0.012) K/mm3 Nucleated RBC % 0.0 (0.0-0.2) % Sodium 137 (137-145) mmol/L Potassium 3.9 (3.4-5.0) mmol/L Chloride 107 (98-107) mmol/L Carbon Dioxide 25 (22-30) mmol/L Anion Gap 5 (4-12) mmol/L BUN 15 D (7-17) mg/dL Creatinine 1.20 H (0.7-1.0) mg/dL Estim Creat Clear Calc 48 ml/min Estimated GFR 45 L (59 - ) Glucose 99 (65-110) mg/dL Calcium 10.3 H (8.4-10.2) mg/dL Total Bilirubin 0.6 (0.2-1.3) mg/dL AST 28 (14-36) U/L ALT 28 (6-35) U/L Alkaline Phosphatase 135 H (38-126) U/L Total Protein 8.0 (6.3-8.2) g/dL Albumin 4.7 (3.5-5.1) g/dL TSH 2.500 (0.465-4.680) uIU/mL Urine Color Yellow (Yellow) Urine Appearance Clear (Clear) Urine pH 5.5 (5.0-9.0) Ur Specific Tiro 1.015 (1.001-1.035) Urine Protein Negative (Negative) mg/dL Urine Glucose (UA) Negative (Negative) mg/dL Urine Ketones 2+ H (Negative) mg/dL Ur Blood (Man) Negative (Negative) Urine Nitrate Negative (Negative) Urine Bilirubin Negative (Negative) Urine Urobilinogen 0.2 (<2.0) mg/dL Leukocyte Esterase Rfl Negative (Negative) HAILEE/UL Urine Opiates Screen Negative (Negative) Urine Methadone Screen Negative (Negative) Ur Barbiturates Screen Negative (Negative) Ur Phencyclidine Scrn Negative (Negative) Ur Amphetamine Screen Negative (Negative) U Benzodiazepines Scrn Positive A (Negative) Urine Cocaine Screen Negative (Negative) U Cannabinoids Screen Negative (Negative) Ethyl Alcohol < 10 (<10) mg/dL Influenza A (RT-PCR) Negative (Negative) Influenza B (RT-PCR) Negative (Negative) RSV (RT-PCR) Negative (Negative) SARS-CoV-2 RNA (RT-PCR) Negative (Negative) <Fernando Bravo MD - Last Filed: 06/10/24 18:08> Discharge Plan Discharge Clinical Impression: Anxiety <Theodora Gates PA-C - Last Filed: 06/10/24 15:55> Patient Disposition: Home, Self-Care <Theodora Gates PA-C - Last Filed: 06/10/24 15:55> Condition: Stable <Theodora Gates PA-C - Last Filed: 06/10/24 15:55> Instructions: Anxiety (ED) <Theodora Gates PA-C - Last Filed: 06/10/24 15:55> Additional Instructions: Return to the ER if you have fever 100.4? F, he cannot keep down food water, you lose consciousness, or have additional concerns. <Theodora Gates PA-C - Last Filed: 06/10/24 15:55> Patient Language: Maori <Theodora Gates PA-C - Last Filed: 06/10/24 15:55> Prescriptions: New lorazepam [Ativan] 0.5 mg tablet 0.5 mg PO BID PRN (Reason: anxiety) Qty: 14 0RF No Action fluticasone propionate [Flonase Allergy Relief] 50 mcg/actuation spray,suspension 2 spray NASAL DAILY 14 Days Qty: 15.8 0RF Rx Instructions: administer into each nostril amoxicillin-pot clavulanate 875-125 mg tablet 1 tablet PO Q12H 10 Days Qty: 20 0RF levothyroxine [Euthyrox] 88 mcg tablet 88 mcg PO DAILY lisinopril 30 mg tablet 30 mg PO DAILY alprazolam 0.5 mg tablet 0.5 mg PO Q6H Rx Instructions: 0600,1200,1600,2000 phenazopyridine [Pyridium] 200 mg tablet 200 mg PO TID PRN (Reason: pain) Qty: 6 0RF cephalexin 500 mg capsule 500 mg PO Q12H 7 Days Qty: 14 0RF cephalexin 500 mg capsule 500 mg PO Q12H Qty: 10 0RF hydroxyzine HCl 10 mg tablet 10 mg PO TID PRN (Reason: anxiety) Qty: 30 0RF omeprazole 20 mg capsule,delayed release(DR/EC) 20 mg PO DAILY naproxen 500 mg tablet 500 mg PO BID Qty: 14 0RF <Theodora Gates PA-C - Last Filed: 06/10/24 15:55> Follow-up/Referrals: Constantino,ROSS Arce [Primary Care Provider] - 1 Week <Theodora Gates PA-C - Last Filed: 06/10/24 15:55>
[2024-06-10 16:11] LABS: Basophils Absolute Auto 0.1 K/mm3 (0.0-0.1); Basophils Percent Auto 0.4 % (0.2-1.2); Eosinophils Percent Auto 0.2 % (0-4.4); Hematocrit 48.5 % (37.0-47.0); Hemoglobin 16.3 g/dL (12.0-15.0); Immature Granulocyte Absolute 0.05 K/mm3 (0.00-0.031); Immature Granulocyte Percent A 0.4 % (0-0.5); Lymphocytes Percent Auto 18.1 % (18.3-44.2); Mean Corpuscular HGB Conc 33.6 g/dl (32-36); Mean Corpuscular Volume 92.4 fl (80-100); Mean Platelet Volume 9.9 fl (7.4-10.4); Monocytes Absolute Auto 0.6 K/mm3 (0.1-0.6); Monocytes Percent Auto 4.4 % (2.6-8.5); Neutrophils Absolute Auto 9.7 K/mm3 (1.3-6.7); Neutrophils Percent Auto 76.5 % (45.5-73.1); Platelet Count Result 310 k/mm3 (150-375); Red Blood Count 5.25 M/mm3 (4.2-5.4); Red Cell Distribution Width 13.6 % (11.5-14.5); White Blood Count 12.7 K/mm3 (4.5-10.0)
[2024-06-10] MEDS: ONDANSETRON HCL ODT 4 MG TABLET PO (16:17)
[2024-06-10] MEDS: LORazepam (*CRX) 1 MG TABLET PO (16:17)
[2024-06-10 16:22] LABS: Alanine Aminotransferase 28 U/L (6-35); Albumin Level 4.7 g/dL (3.5-5.1); Alkaline Phosphatase 135 U/L (38-126); Anion Gap 5 mmol/L (4-12); Aspartate Amino Transferase 28 U/L (14-36); Bilirubin,Total 0.6 mg/dL (0.2-1.3); Blood Urea Nitrogen 15 mg/dL (7-17); Calcium 10.3 mg/dL (8.4-10.2); Carbon Dioxide 25 mmol/L (22-30); Chloride 107 mmol/L (98-107); Estimated CRCL calculation 48 ml/min; Estimated Glomerular Filt Rate 45; Glucose 99 mg/dL (65-110); Potassium 3.9 mmol/L (3.4-5.0); Sodium 137 mmol/L (137-145)
[2024-06-10 16:30] LABS: Ethanol < 10 mg/dL (<10)
[2024-06-10 16:35] LABS: Add Urine Microscopic? NO; Appearance Urine Clear (Clear); Bilirubin Urine Negative (Negative); Blood Urine Negative (Negative); Color Urine Yellow (Yellow); Glucose Urine UA Negative (Negative); Ketones Urine 2+ mg/dL (Negative); Leukocyte Esterase Ur Negative LEU/UL (Negative); Nitrate Urine Negative (Negative); Protein Urine Negative (Negative); Specific Grav Ur 1.015 (1.001-1.035); Urobilinogen Urine 0.2 mg/dL (<2.0); pH Urine 5.5 (5.0-9.0)
[2024-06-10 16:46] LABS: Influenza A QL RT-PCR Negative (Negative); Influenza B QL RT-PCR Negative (Negative); RSV RNA, RT-PCR Negative (Negative); SARS-CoV-2 RNA PCR Negative (Negative)
[2024-06-10 16:52] LABS: Amphetamine Screen Urine Negative (Negative); Barbiturate Screen Urine Negative (Negative); Benzodiazepines Screen Urine Positive (Negative); Cannabinoid Screen Urine Negative (Negative); Cocaine Screen Urine Negative (Negative); Methadone Screen Urine Negative (Negative); Opiate Screen Urine Negative (Negative); Phencyclidine Screen Urine Negative (Negative)
--- NOTE | 2024-06-10 17:43 | PC.NURSE ---
Patient calm-reports feeling much better
[2024-06-10 17:44] VITALS: BP 117/64; PULSE 85; RESP 16; TEMP 36.7; O2SAT 99
--- NOTE | 2024-06-10 18:04 | PC.NURSE ---
Dr Bravo updated on patient condition
== END 2024-06-10 18:16 | disposition home or self-care (01) ==
PROVIDERS: Physician Assistant; Emergency Provider Emergency Medicine; PCP Physician Assistant
DX: F41.9 Anxiety disorder, unspecified (principal); I12.9 Hypertensive chronic kidney disease with stage 1 through stage 4 chronic kidney disease, or unspecified chronic kidney disease; N18.30 Chronic kidney disease, stage 3 unspecified; E03.9 Hypothyroidism, unspecified; K21.9 Gastro-esophageal reflux disease without esophagitis; K44.9 Diaphragmatic hernia without obstruction or gangrene; F32.A Depression, unspecified; Z90.49 Acquired absence of other specified parts of digestive tract; Z90.710 Acquired absence of both cervix and uterus; Z79.899 Other long term (current) drug therapy; Z20.822 Contact with and (suspected) exposure to COVID-19
CPT/HCPCS: 36415; 80053; 80307; 81003; 82077; 84443; 85025; 87637; 99284; A9270

== ENCOUNTER 2024-11-30 08:57 | Outpatient (CLI) | payer MEDICARE, SELFPAY ==
[2024-11-30 09:46] LABS: Basophils Absolute Auto 0.1 K/mm3 (0.0-0.1); Basophils Percent Auto 0.8 % (0.2-1.2); Eosinophils Absolute Auto 0.2 K/mm3 (0-0.3); Eosinophils Percent Auto 2.7 % (0-4.4); Hemoglobin 14.9 g/dL (12.0-15.0); Immature Granulocyte Absolute 0.03 K/mm3 (0.00-0.031); Immature Granulocyte Percent A 0.4 % (0-0.5); Lymphocytes Absolute Auto 2.37 K/mm3 (0.9-3.2); Lymphocytes Percent Auto 30.8 % (18.3-44.2); Mean Corpuscular HGB Conc 32.4 g/dl (32-36); Mean Corpuscular Hemoglobin 30.4 pg (26-34); Mean Corpuscular Volume 93.9 fl (80-100); Mean Platelet Volume 9.9 fl (7.4-10.4); Monocytes Absolute Auto 0.5 K/mm3 (0.1-0.6); Monocytes Percent Auto 5.8 % (2.6-8.5); Neutrophils Absolute Auto 4.6 K/mm3 (1.3-6.7); Neutrophils Percent Auto 59.5 % (45.5-73.1); Platelet Count Result 292 k/mm3 (150-375); White Blood Count 7.7 K/mm3 (4.5-10.0)
[2024-11-30 10:01] LABS: Alanine Aminotransferase 23 U/L (6-35); Albumin Level 4.4 g/dL (3.5-5.1); Alkaline Phosphatase 108 U/L (38-126); Anion Gap 8 mmol/L (4-12); Aspartate Amino Transferase 28 U/L (14-36); Bilirubin,Total 0.4 mg/dL (0.2-1.3); Blood Urea Nitrogen 22 mg/dL (7-17); Calcium 9.7 mg/dL (8.4-10.2); Carbon Dioxide 26 mmol/L (22-30); Chloride 107 mmol/L (98-107); Cholesterol 238 mg/dL (0-200); Estimated Glomerular Filt Rate 41; Glucose 117 mg/dL (65-110); HDL Direct 60 mg/dL; Potassium 4.3 mmol/L (3.4-5.0); Sodium 141 mmol/L (137-145); Total Protein 7.4 g/dL (6.3-8.2); Triglycerides 149 mg/dL (<150)
[2024-11-30 10:12] LABS: LDL Cholesterol Direct 123 mg/dL
[2024-11-30 10:32] LABS: Thyroid Stimulating Hormone 0.834 uIU/mL (0.465-4.680)
[2024-11-30 11:04] LABS: Free T4 Free Thyroxine 1.39 ng/dL (0.78-2.19)
== END 2024-11-30 08:58 | disposition home or self-care (01) ==
PROVIDERS: PCP Physician Assistant; Visit Provider Physician Assistant
DX: E03.9 Hypothyroidism, unspecified (principal); I10 Essential (primary) hypertension; Z13.220 Encounter for screening for lipoid disorders; Z79.899 Other long term (current) drug therapy
CPT/HCPCS: 36415; 80048; 80061; 80076; 84439; 84443; 85025

== ENCOUNTER 2024-12-14 16:30 | Emergency (ER) | payer MEDICARE, SELFPAY ==
[2024-12-14 16:34] VITALS: BP 156/102; PULSE 131; RESP 18; TEMP 36.4; O2SAT 100
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
--- NOTE | 2024-12-14 17:38 | ECG_ITS ---
Test Date: 2024-12-14 17:33:50 Measurements Intervals [place] Rate: 98 P: 87 UT: 149 QRS: 31 QRSD: 87 T: 34 QT: 330 QTc: 423 Interpretive Statements SINUS RHYTHM WITH OCCASIONAL VENTRICULAR PREMATURE COMPLEXES NONSPECIFIC T-WAVE ABNORMALITY ABNORMAL ECG No previous ECG available for comparison Electronically Signed On 12-15-2024 07:41:47 CDT by Ean White M.D.
[2024-12-14 17:42] VITALS: BP 135/83; PULSE 86
== END 2024-12-14 17:45 | disposition home or self-care (01) ==
PROVIDERS: Emergency Provider Nurse Practitioner Family; PCP Physician Assistant
DX: F41.9 Anxiety disorder, unspecified (principal); R94.31 Abnormal electrocardiogram [ECG] [EKG]; I12.9 Hypertensive chronic kidney disease with stage 1 through stage 4 chronic kidney disease, or unspecified chronic kidney disease; N18.30 Chronic kidney disease, stage 3 unspecified; K21.9 Gastro-esophageal reflux disease without esophagitis; E03.9 Hypothyroidism, unspecified
CPT/HCPCS: 93005; 99213; G0463